=== PATIENT | female | born 1955 | race Caucasian/White ===

== ENCOUNTER 2019-03-12 10:06 | Inpatient (IN) | payer OTHER ==
[~2019-03-12] VITALS: Ht 152.4 cm; Wt 54.0 kg
--- OUTSIDE RECORDS SUMMARY | 2019-03-12 10:09 | XMS REPORT ---
Author Author [facility] Address Unknown Phone Unavailable Care Team Providers Care Inseam Trimmer Name Role Phone Unavailable Unavailable Problems This patient has no known problems. Allergies, Adverse Reactions, Alerts This patient has no known allergies or adverse reactions. Medications This patient has no known medications. Encounters Start Date/Time End Date/Time Encounter Type Admission Type Attending [facility] Care Department Encounter ID 2018-08-25 00:00:00 2018-08-25 00:00:00 Outpatient [facility] [id number] 2018-05-21 00:00:00 2018-05-21 00:00:00 Outpatient [facility] [id number] 2018-05-06 00:00:00 2018-05-06 00:00:00 Outpatient [facility] [id number] 2018-04-10 00:00:00 2018-04-10 00:00:00 Outpatient [facility] [id number] 2018-04-09 11:42:58 2018-04-09 11:42:58 Outpatient [facility] [id number] 2018-04-09 08:43:53 2018-04-09 08:43:53 Outpatient [facility] [id number] 2018-04-02 13:07:10 2018-04-02 13:07:10 Outpatient [facility] [id number] 2018-04-02 11:20:40 2018-04-02 11:20:40 Outpatient [facility] [id number] 2018-04-02 10:33:22 2018-04-02 10:33:22 Outpatient [facility] [id number] 2018-03-26 00:00:00 2018-03-26 00:00:00 Outpatient [facility] [id number] 2017-11-27 14:06:54 2017-11-27 14:06:54 Outpatient [facility] [id number] 2017-10-31 15:53:54 2017-10-31 15:53:54 Outpatient [facility] [id number] 2017-10-31 15:01:14 2017-10-31 15:01:14 Outpatient [facility] [id number] 2017-10-29 00:00:00 2017-10-29 00:00:00 Outpatient [facility] [id number] 2017-10-28 15:02:55 2017-10-28 15:02:55 Outpatient [facility] [id number] 2017-10-21 00:00:00 2017-10-21 00:00:00 Outpatient [facility] [id number] 2017-10-09 00:00:00 2017-10-09 00:00:00 Outpatient [facility] [id number] 2017-09-29 00:00:00 2017-09-29 00:00:00 Outpatient [facility] [id number] 2017-09-25 00:00:00 2017-09-25 00:00:00 Outpatient [facility] [id number] 2017-09-03 07:44:04 2017-09-03 07:44:04 Outpatient [facility] [id number] 2017-08-19 07:59:54 2017-08-19 07:59:54 Outpatient [facility] [id number] 2017-08-19 00:00:00 2017-08-19 00:00:00 Outpatient [facility] [id number] 2017-08-15 09:39:23 2017-08-15 09:39:23 Outpatient [facility] [id number] 2017-08-15 08:52:19 2017-08-15 08:52:19 Outpatient [facility] [id number] 2017-07-22 00:00:00 2017-07-22 00:00:00 Outpatient [facility] [id number] 2017-07-17 16:41:42 2017-07-17 16:41:42 Outpatient [facility] [id number] 2017-07-17 16:05:15 2017-07-17 16:05:15 Outpatient [facility] [id number] 2017-07-17 14:57:48 2017-07-17 14:57:48 Outpatient [facility] [id number] 2017-06-27 08:33:47 2017-06-27 08:33:47 Outpatient [facility] [id number]
--- OUTSIDE RECORDS SUMMARY | 2019-03-12 10:09 | XMS REPORT ---
Author Author Admin, Hayden Organization [facility] Address [address] [address] Phone Allergies, Adverse Reactions, Alerts Allergy Name Reaction Description Start Date Severity Status Provider No Known Allergies Halley Desai HNP Conditions or Problems Problem Name Problem Code Onset Date Status Entry Date Provider Comment Standard Description Annotate Tremor, essential 333.1 Active Halley Desai PMHNP Essential and other specified forms of tremor DEPRESSIVE DISORDER, MAJOR, RECURRENT EPISODE, MODERATE Active Halley Desai PMHNP Major depressive disorder, recurrent episode, moderate degree GENERALIZED ANXIETY DISORDER Active Halley Desai PMHNP Generalized anxiety disorder Medication List Medication Instructions Start Date Stop Date Generic Name NDC Status Provider Patient Instruction ZOLOFT 25 MG ORAL TABLET Take 1 tablet By Mouth QAM SERTRALINE HCL 26815707968 Active Halley Desai PMHNP Active ALBUTEROL SULFATE NEBULIZATION SOLUTION ALBUTEROL SULFATE NEBU 36478419617 Active Halley Desai PMHNP Active CYCLOBENZAPRINE HCL 10 MG ORAL TABLET CYCLOBENZAPRINE HCL 23772582415 Active Halley Desai PMHNP Active FROVATRIPTAN SUCCINATE 2.5 MG ORAL TABLET FROVATRIPTAN SUCCINATE 65151247230 Active Halley Desai PMHNP Active HYDROCODONE-ACETAMINOPHEN 10-325 MG/15ML ORAL SOLUTION HYDROCODONE-ACETAMINOPHEN 72364744940 Active Halley Desai PMHNP Active LEVALBUTEROL TARTRATE AEROSOL LEVALBUTEROL TARTRATE AERO 89146906220 Active Halley Desai PMHNP Active METOPROLOL TARTRATE 25 MG ORAL TABLET BID METOPROLOL TARTRATE 13298198697 Active Halley Desai PMHNP Active MIRTAZAPINE 45 MG ORAL TABLET Take 1 tablet By Mouth QHS MIRTAZAPINE 69260045240 Active Halley Desai PMHNP Active OMEPRAZOLE 40 MG ORAL CAPSULE DELAYED RELEASE OMEPRAZOLE 85396174859 Active Halley Desai PMHNP Active SYMBICORT AEROSOL BUDESONIDE-FORMOTEROL FUMARATE AERO 85330364779 Active Halley Desai PMHNP Active VALIUM 10 MG ORAL TABLET Take 1/2 tablet By Mouth BID As Needed for anxiety DIAZEPAM 53517922156 Active Halley Desai PMHNP Active CYMBALTA 30 MG ORAL CAPSULE DELAYED RELEASE PARTICLES Take 1 capsule By Mouth QA CYMBALTA 30 MG ORAL CAPSULE DELAYED RELEASE PARTICLES 720453 DULOXETINE HCL Inactive TRAZODONE HCL 150 MG ORAL TABLET Take 1 tablet By Mouth QHS TRAZODONE HCL 150 MG ORAL TABLET 592191 TRAZODONE HCL Inactive WELLBUTRIN XL 150 MG ORAL TABLET EXTENDED RELEASE 24 HOUR Take 1 tablet By Mouth QA WELLBUTRIN XL 150 MG ORAL TABLET EXTENDED RELEASE 24 HOUR BUPROPION HCL Inactive CYMBALTA 30 MG ORAL CAPSULE DELAYED RELEASE PARTICLES Take 1 capsule By Mouth QA DULOXETINE HCL 53135264282 No Longer Active Halley Desai PMHNP Active TRAZODONE HCL 150 MG ORAL TABLET Take 1 tablet By Mouth Q TRAZODONE HCL 94323878287 No Longer Active Halley Desai PMHNP Active WELLBUTRIN XL 150 MG ORAL TABLET EXTENDED RELEASE 24 HOUR Take 1 tablet By Mouth QA BUPROPION HCL 60643103156 No Longer Active Halley Desai PMHNP Active Vital Signs Date Name Value Unit Range Description blood pressure, diastolic 76 mm[Hg] BP jc blood pressure, systolic 131 mm[Hg] BP sys height E&M 60 [in_us] Bdy height pulse rate E&M 114 /min Heart rate weight E&M 107.20 [lb_av] Weight Measured blood pressure, diastolic 61 mm[Hg] BP jc blood pressure, systolic 117 mm[Hg] BP sys height E&M 60 [in_us] Bdy height pulse rate E&M 89 /min Heart rate weight E&M 106 [lb_av] Weight Measured blood pressure, diastolic 74 mm[Hg] BP jc blood pressure, systolic 115 mm[Hg] BP sys height E&M 60 [in_us] Bdy height pulse rate E&M 89 /min Heart rate weight E&M 99.50 [lb_av] Weight Measured blood pressure, diastolic 79 mm[Hg] BP jc blood pressure, systolic 118 mm[Hg] BP sys height E&M 60 [in_us] Bdy height pulse rate E&M 108 /min Heart rate weight E&M 101.25 [lb_av] Weight Measured Encounters Date Encounter Provider Code Facility 11:27:13 CDT Est Patient Exp Problem - 17874 Halley Gonzalezley PMHNP CPT-67174 [facility] 13:12:57 CDT Est Patient Exp Problem - 77193 Halley Desai HNP CPT-08933 [facility] 15:59:06 [employer] Est Patient Exp Problem - 10001 Halley Desai PMHNP CPT-44922 [facility] Procedures Code Procedure Name Date Entry Date Standard Description CPT-04583 Diagnostic evaluation with medical - 72701 15:57:29 [employer]
[2019-03-12] MEDS ORDERED: SODIUM CHLORIDE 0.9% 1000ML 1,000 ML IV STA (10:18)
[2019-03-12] MEDS ORDERED: MORPHINE SULFATE 2 MG/ML SYR 1ML IV ONE (10:45)
[2019-03-12] MEDS ORDERED: ONDANSETRON HCL INJ 2MG/ML 2ML 2 MG/ML VIAL IV ONE (10:45)
[2019-03-12 11:08] LABS: BASOPHILS # (AUTO) 0.1 (0.0-0.1); BASOPHILS % 0.6 % (0.0-1.0); EOSINOPHILS % 0.3 % (0.0-6.0); HEMATOCRIT 49.4 % (34.2-44.1); HEMOGLOBIN 17.3 g/dL (12.0-16.0); LYMPHOCYTES # (AUTO) 3.8 (1.0-3.2); LYMPHOCYTES % 38.6 % (18.0-39.1); MEAN CORPUSCULAR HEMOGLOBIN 30.8 pg (28-32); MEAN CORPUSCULAR VOLUME 87.9 fL (81-99); MONOCYTES # (AUTO) 1.3 (0.2-0.8); MONOCYTES % 12.8 % (4.4-11.3); NEUTROPHILS # (AUTO) 4.6 (2.1-6.9); NEUTROPHILS % 47.2 % (38.7-80.0); PLATELET COUNT 265 x10e3/uL (140-360); RED BLOOD COUNT 5.62 x10e6/uL (3.6-5.1); RED CELL DISTRIBUTION WIDTH 15.3 % (11.7-14.4)
[2019-03-12 11:23] LABS: PREGNANCY TEST, URINE NEGATIVE (NEGATIVE)
[2019-03-12 11:27] LABS: ALANINE AMINOTRANSFERASE 24 IU/L (0-55); ALBUMIN 4.8 g/dL (3.5-5.0); ALBUMIN/GLOBULIN RATIO 1.5 (0.8-2.0); ALKALINE PHOSPHATASE 100 IU/L (40-150); ANION GAP 19.1 mmol/L (8-16); BLOOD UREA NITROGEN 10 mg/dL (7-26); BUN/CREATININE RATIO 15 (6-25); CALCIUM 10.3 mg/dL (8.4-10.2); CARBON DIOXIDE 26 mmol/L (22-29); CHLORIDE 93 mmol/L (98-107); CREATINE KINASE 93 IU/L (29-168); CREATININE, SERUM 0.67 mg/dL (0.57-1.11); EST GLOMERULAR FILTRATION RATE > 60 ML/MIN (60-); GLUCOSE 114 mg/dL (74-118); LIPASE 35 U/L (8-78); POTASSIUM 3.1 mmol/L (3.5-5.1); SODIUM 135 mmol/L (136-145)
[2019-03-12 11:38] LABS: CLARITY,URINE HAZY (CLEAR); COLOR,URINE YELLOW (YELLOW); LEUKOCYTE ESTERASE ,URINE NEGATIVE (NEGATIVE); NITRITE,URINE NEGATIVE (NEGATIVE); PROTEIN,URINE DIPSTICK TRACE (NEGATIVE)
[2019-03-12 11:39] LABS: BILIRUBIN,URINE NEGATIVE (NEGATIVE); KETONES,URINE TRACE (NEGATIVE)
[2019-03-12 11:40] LABS: BACTERIA,URINE MODERATE /HPF; EPITHELIAL CELLS,URINE FEW /LPF
--- NOTE | 2019-03-12 11:42 | Diagnostic Imaging Report ---
EXAMINATION: CHEST SINGLE (PORTABLE) INDICATION: Tachycardia COMPARISON: None FINDINGS: LINES/TUBES:EKG leads overlie the chest. LUNGS:The lungs are well inflated. No focal consolidation or pulmonary edema. Scattered calcified granulomas. PLEURA:No pleural effusion or pneumothorax. MEDIASTINUM:The cardiomediastinal silhouette appears normal in size and shape. BONES/SOFT TISSUES:No acute osseous injury. ABDOMEN:No free air under the diaphragm. IMPRESSION: No focal pneumonia or pulmonary edema. Signed by: Jessee Dela Cruz MD on 03/12/2019 11:39 AM
[2019-03-12] MEDS ORDERED: FAMOTIDINE 20 MG/2 ML VIAL IV ONE (12:01)
[2019-03-12 12:04] LABS: B-TYPE NATRIURETIC PEPTIDE2 78.7 pg/mL (0-100)
[2019-03-12] MEDS ORDERED: MORPHINE SULFATE 2 MG/ML SYR 1ML IV PRN (13:30)
[2019-03-12] MEDS ORDERED: ASPIRIN 81 MG CHEW TAB PO ONE (13:30)
[2019-03-12] MEDS: SODIUM CHLORIDE 0.9% 1000ML 1,000 ML IV SCH ×2 (14:09→20:15)
[2019-03-12] MEDS: ONDANSETRON HCL INJ 2MG/ML 2ML 2 MG/ML VIAL IV PRN ×2 (14:10→20:10)
[2019-03-12] MEDS: MORPHINE SULFATE INJ 4 MG/ML INJ 1ML IV PRN ×2 (14:10→20:10)
--- NOTE | 2019-03-12 14:33 | Diagnostic Imaging Report ---
EXAM: CT Abdomen and Pelvis WITH intravenous contrast INDICATION: Abdominal pain COMPARISON: None. TECHNIQUE: Abdomen and pelvis were scanned utilizing a multidetector helical scanner from the lung base to the pubic symphysis after administration of IV contrast. Coronal and sagittal reformations were obtained. Routine protocol was performed. Scan was performed during portal venous phase. IV CONTRAST: 100mL of Isovue 370 ORAL CONTRAST: Water RADIATION DOSE: Total DLP: 174.7 mGy*cm Dose modulation, iterative reconstruction, and/or weight based adjustment of the mA/kV was utilized to reduce the radiation dose to as low as reasonably achievable. FINDINGS: LOWER THORAX: Mild bibasilar dependent subsegmental atelectasis. No focal consolidation. HEPATOBILIARY: Diffuse hepatic steatosis. No focal liver lesions. The common bile duct is dilated to 11 mm which can be seen status post cholecystectomy. SPLEEN: The spleen is absent. PANCREAS: No focal masses or ductal dilatation. ADRENALS: No adrenal nodules. KIDNEYS/URETERS: No hydronephrosis, stones, or solid mass lesions. Bilateral renal cysts measure up to 2.7 cm on the left and 1.5 cm on the right. PELVIC ORGANS/BLADDER: Unremarkable. PERITONEUM / RETROPERITONEUM: No free air or fluid. LYMPH NODES: No lymphadenopathy. VESSELS: Atherosclerotic calcifications of the nonaneurysmal abdominal aorta and major branches. GI TRACT: No abnormal bowel wall thickening. Loop of dilated small bowel in the left mid abdomen measures up to 3.4 cm with air-fluid level (series 2 image 25). BONES AND SOFT TISSUES: No acute osseous injury. No suspicious lytic or blastic lesions. IMPRESSION: Nonspecific loop of dilated small bowel in the left mid abdomen measures up to 3.4 cm with air-fluid level. No other evidence of bowel obstruction. Hepatic steatosis. Signed by: Jessee Dela Cruz MD on 03/12/2019 2:30 PM
[2019-03-12] MEDS ORDERED: MYSOLINE50 MG (15:08)
[2019-03-12] MEDS ORDERED: CYCLOBENZAPRINE10 MG (15:08)
[2019-03-12] MEDS ORDERED: HYDROCODON-ACE1 EAC9 (15:08)
[2019-03-12] MEDS ORDERED: LOPRESSOR25 MG (15:08)
[2019-03-12] MEDS ORDERED: OMEPRAZOLE40 MG (15:08)
[2019-03-12] MEDS ORDERED: SERTRALINE HCL25 MG (15:08)
[2019-03-12] MEDS ORDERED: AMLODIPINE BESYL5 MG (15:08)
[2019-03-12] MEDS ORDERED: IOPAMIDOL 370 MG/ML 200 ML INFUS..BTL INJ ONE (15:09)
[2019-03-12] MEDS ORDERED: SODIUM CHLORIDE 0.9% 50ML 50 ML ONE (15:09)
--- NOTE | 2019-03-12 15:12 | NUR ---
home meds obtained from patient and entered into the computer
[2019-03-12 15:48] VITALS: BP 157/87
[2019-03-12 16:00] VITALS: BP 157/87
[2019-03-12] MEDS: METHYLPREDNISOLONE SOD SUCC 40 MG/ML VIAL 1ML IV SCH (18:02)
[2019-03-12] MEDS ORDERED: LEVOFLOXACIN 500MG/D5W 100ML 100 ML IV SCH (18:45)
[2019-03-12] MEDS ORDERED: METOPROLOL TARTRATE 25 MG TAB PO SCH (18:45)
[2019-03-12] MEDS ORDERED: HYDROCODONE/APAP 10MG-325MG TAB PO PRN (18:59)
--- NOTE | 2019-03-12 19:00 | NUR ---
Patient visited in room during nursing rounds. Patient alert and oriented x3. No distress noted. Pt with intermittent abdominal pain and will be medicated accordingly. On IVF (NS at 125ml/hr). On 2L NC. Up with assist prn. Call hart within. Will monitor closely.
[2019-03-12 19:48] VITALS: BP 120/75
[2019-03-12] MEDS: METOPROLOL TARTRATE 25 MG TAB PO SCH (20:10)
[2019-03-12] MEDS: LEVOFLOXACIN 500MG/D5W 100ML 100 ML IV SCH (20:15)
[2019-03-12 21:09] LABS: CREATINE KINASE 132 IU/L (29-168)
--- NOTE | 2019-03-12 22:32 | NUR ---
Called and spoke with answering service for Dr. Antonia Downing. Reason for call was patient asking for sleeping medication. Awaiting on MD call back. MD on-call was Dr. Castillo.
[2019-03-13] VITALS (8 sets, daily range): BP systolic 107–120; BP diastolic 70–83
[2019-03-13] MEDS: METHYLPREDNISOLONE SOD SUCC 40 MG/ML VIAL 1ML IV SCH ×4 (00:20→22:20)
--- NOTE | 2019-03-13 01:10 | NUR ---
Dr. Payton Calvillo at bedside talking to patient. MD aware of patient condition and ordered STAT KUB due to patient's frequent abd pain.
--- NOTE | 2019-03-13 01:15 | NUR ---
Pt had a bowel movement. Stool was dark and small in amount. Pt stated he's passing small amount of gas.
--- NOTE | 2019-03-13 01:20 | NUR ---
STAT KUB in progress at bedside.
[2019-03-13] MEDS: MORPHINE SULFATE INJ 4 MG/ML INJ 1ML IV PRN ×5 (01:32→23:43)
[2019-03-13] MEDS: ONDANSETRON HCL INJ 2MG/ML 2ML 2 MG/ML VIAL IV PRN ×5 (01:32→23:43)
--- NOTE | 2019-03-13 01:45 | Diagnostic Imaging Report ---
Abdomen/KUB INDICATION: ^abdominal pain ^[id number] ^0120 COMPARISON: CT abdomen/pelvis 03/12/2019. FINDINGS: Portable, supine image obtained at 0127 hours. Medical Devices: Cholecystectomy clips are stable Bowel: Bowel gas pattern is unremarkable. Gaseous distention of small bowel loops are redemonstrated measuring up to 4.0 cm. No pneumatosis. Free air: None Abdominal calcifications: None Organomegaly: None There is excreted contrast in the bladder from CT. Lung bases: Clear Bones: Stable dextroscoliosis of the lumbar spine IMPRESSION: Persistent small bowel distention suggestive of severe ileus or low-grade partial small bowel obstruction. Signed by: Dr. Sheila Roa MD on 03/13/2019 1:42 AM
--- NOTE | 2019-03-13 02:13 | NUR ---
Dr. Pancho Calvillo ordered to insert NG tube on patient based on results from latest KUB result to help decompress patient's stomach.
--- NOTE | 2019-03-13 02:19 | History and Physical ---
CHIEF COMPLAINT: Emmie Rhoades is a 63-year-old female patient of [facility], presented to the emergency room with a complaint of abdominal pain. HISTORY OF PRESENT ILLNESS: Emmie Rhoades is a 63-year-old female patient of mine, presented to the emergency room with a complaint of severe abdominal pain. The patient was evaluated in the emergency room. The patient was severely tachycardic with a heart rate of 150. The patient was also having shortness of breath, so, the patient was subsequently admitted FOR severe COPD, anxiety, bipolar, hypertension, hyperlipidemia, anxiety, chronic back pain, and depression. ALLERGIES: THE PATIENT IS ALLERGIC TO PENICILLIN AND TRAMADOL. SOCIAL HISTORY: The patient is a smoker. Denies using alcohol. Denies using any drugs. FAMILY HISTORY: Hypertension. PAST MEDICAL HISTORY: COPD, hypertension, bipolar, depression, anxiety, and chronic back pain. REVIEW OF SYSTEMS: abdominal pain, cough, shortness of breath, wheezing and palpitation. Other systems are negative. PHYSICAL EXAMINATION: GENERAL: She is a middle-aged female patient lying in the bed. The patient is anxious and apprehensive. VITAL SIGNS: Temperature 99.6, pulse rate 114, respiratory rate 22, blood pressure 160/90. HEENT: Normocephalic, atraumatic. LUNGS: Bilateral equal air entry. There is rhonchi present. HEART: S1, S2. Regular. Tachycardia. ABDOMEN: The patient has diffuse mild tenderness. There is no guarding or rigidity. EXTREMITIES: No edema. LABORATORY EXAMINATION: The patient has hypokalemia, potassium of 3.1, bilirubin is 2.5 and LFTs mildly elevated. WBC count is 9.75. Her hemoglobin 17.3. Urine is showing low wbc's and moderate bacteria. The patient had a CT scan of the abdomen that was done, which showed dilated SMALL BOWELS . ADMITTING IMPRESSION/DIAGNOSES: Abdominal pain and urinary tract infection , tachycardia, hypertension and chronic obstructive pulmonary disease. PLAN: The patient will be admitted with above diagnoses , WILL RX WITH IV ABX patient will have a GI and pulmonary consultation done. MD SHEA Garland/MODESTO /[id number] LADARIUS
--- NOTE | 2019-03-13 02:30 | NUR ---
1st attempt to insert NG on right nare unsuccessful. 2nd attempt to insert on left nare unsuccessful. Patient shared she had history of surgery on her nose due to deviated septum on right side of nose.
--- NOTE | 2019-03-13 02:35 | NUR ---
Mary Lou Simons (ABISAI) attempted to insert NG tube on left nare but unsuccessful. Will report to Dr. Payton Calvillo unsuccessful attempts.
--- NOTE | 2019-03-13 02:40 | NUR ---
Informed Dr. Payton Calvillo of unsuccessful NG tube insertions and MD aware. MD ordered to instead give pt dulcolax suppository and do another KUB this morning at 0700. Pt aware informed and agreed to plan.
[2019-03-13] MEDS ORDERED: BISACODYL 10 MG SUPP PR ONE (02:45)
--- NOTE | 2019-03-13 03:11 | NUR ---
Dr. Payton Calvillo explained to patient her condition. MD aware Dulcolax supp has been given. MD informed patient that if 2nd KUB this morning (at 0700) does not show improvement, he might opt for IR to insert NG tube to decompress stomach.
--- NOTE | 2019-03-13 03:47 | NUR ---
Pt used bedside commode. Nurse heard and pt admitted she has passed a lot of gas but no stool collected on bedside commode. Pt urinated well.
[2019-03-13] MEDS: PANTOPRAZOLE SOD 40 MG TABEC PO SCH (06:13)
[2019-03-13] MEDS: SODIUM CHLORIDE 0.9% 1000ML 1,000 ML IV SCH ×2 (06:14→14:21)
[2019-03-13 06:52] LABS: BASOPHILS % 0.2 % (0.0-1.0); HEMATOCRIT 43.3 % (34.2-44.1); HEMOGLOBIN 14.7 g/dL (12.0-16.0); LYMPHOCYTES # (AUTO) 1.3 (1.0-3.2); LYMPHOCYTES % 25.8 % (18.0-39.1); MEAN CORPUSCULAR HGB CONC 33.9 g/dL (31-35); MEAN CORPUSCULAR VOLUME 91.4 fL (81-99); MONOCYTES # (AUTO) 0.2 (0.2-0.8); MONOCYTES % 4.8 % (4.4-11.3); NEUTROPHILS # (AUTO) 3.5 (2.1-6.9); NEUTROPHILS % 68.6 % (38.7-80.0); PLATELET COUNT 221 x10e3/uL (140-360); RED BLOOD COUNT 4.74 x10e6/uL (3.6-5.1); RED CELL DISTRIBUTION WIDTH 15.3 % (11.7-14.4)
--- NOTE | 2019-03-13 07:07 | NUR ---
Received bedside report from night nurse. Patient resting in bed, no c/o of pain or signs of distress at this time. All safety measures in place. Will continue to monitor.
[2019-03-13 07:12] LABS: ALANINE AMINOTRANSFERASE 18 IU/L (0-55); ALBUMIN 3.9 g/dL (3.5-5.0); ALBUMIN/GLOBULIN RATIO 1.7 (0.8-2.0); ALKALINE PHOSPHATASE 66 IU/L (40-150); ANION GAP 14.5 mmol/L (8-16); BLOOD UREA NITROGEN 14 mg/dL (7-26); BUN/CREATININE RATIO 20 (6-25); CARBON DIOXIDE 28 mmol/L (22-29); CHLORIDE 99 mmol/L (98-107); EST GLOMERULAR FILTRATION RATE > 60 ML/MIN (60-); GLUCOSE 152 mg/dL (74-118); POTASSIUM 3.5 mmol/L (3.5-5.1); SODIUM 138 mmol/L (136-145)
[2019-03-13 07:22] LABS: CREATINE KINASE 146 IU/L (29-168)
[2019-03-13] MEDS ORDERED: NON-FORMULARY MEDICATION (Sertraline Hcl 25 MG) SCH (09:00)
[2019-03-13] MEDS: AMLODIPINE BESYLATE 5 MG TAB PO SCH (09:03)
[2019-03-13] MEDS: METOPROLOL TARTRATE 25 MG TAB PO SCH ×2 (09:03→17:20)
[2019-03-13] MEDS: PRIMIDONE 50 MG TAB PO SCH (09:03)
[2019-03-13] MEDS: CYCLOBENZAPRINE HCL 10 MG TAB PO SCH ×2 (09:03→17:20)
[2019-03-13] MEDS: SERTRALINE HCL 50 MG TAB PO SCH (09:03)
--- NOTE | 2019-03-13 09:05 | Diagnostic Imaging Report ---
Abdomen/KUB INDICATION: ^abdominal pain COMPARISON: Abdomen x-ray 0127 hours FINDINGS: Portable, supine image obtained at 0647 hours. Images are motion degraded. Medical Devices: Cholecystectomy clips. Bowel: Visualized bowel gas pattern is unremarkable. Dilated small bowel loops in the left hemiabdomen measure approximately 3 cm (previously, 4 cm). No pneumatosis. Free air: None Abdominal calcifications: None Organomegaly: None There is excreted contrast within the bladder. Bones: Stable IMPRESSION: Motion degraded exam. Some improvement in small bowel dilatation. Signed by: Dr. Sheila Roa MD on 03/13/2019 7:01 AM
--- NOTE | 2019-03-13 11:33 | NUR ---
Tech reported that patient O2 stats on room air was 86%. With 2 L O2 NC, it was 92% at rest. Patient reports not going outside very often at home due to feeling tired. Paged Dr. Villareal to ask about possible home O2 eval.
--- NOTE | 2019-03-13 11:36 | NUR ---
Awaiting return call from Dr. Villareal regarding possible home O2 eval.
--- NOTE | 2019-03-13 11:48 | NUR ---
Per Dr. Villareal, will keep patient on 2L O2 NC, continue to monitor, and plan to do home O2 eval.
[2019-03-13] MEDS: ALBUTEROL/IPRATROPIUM 3 ML NEB NEB SCH ×3 (13:52→23:15)
[2019-03-13 15:41] LABS: CREATINE KINASE MB 5.3 ng/mL (0-5.0)
--- NOTE | 2019-03-13 15:58 | Consultation ---
DATE OF CONSULTATION: Pulmonary Consultation REASON FOR THE CONSULT: COPD. HISTORY OF PRESENT ILLNESS: Ms. Rhoades is a 63-year-old female admitted under Dr. Nelson Downing's service with complaints of abdominal pain. The patient has history of COPD. She is a heavy smoker. She started smoking when she was 9 years old. She has been a smoker for almost 55 years. She has been diagnosed with severe COPD. She has a history of hypertension. She denies any complaints of chest pain. She reports shortness of breath and wheezing and cough. REVIEW OF SYSTEMS: GENERAL: Denies any fever or chills. HEAD: Denies any head trauma. ENT: Denies any earaches. CVS: Denies any chest pain. RESPIRATORY: Shortness of breath. GI: Denies any nausea or vomiting. The rest of the review of systems are negative except as in HPI. PAST MEDICAL HISTORY: COPD, hypertension, depression, anxiety, and chronic back pain. FAMILY AND SOCIAL HISTORY: She still smokes, has been a smoker for 55 years, half to one-pack per day. Lives with her daughter. PHYSICAL EXAMINATION: VITAL SIGNS: Temperature 98.6, pulse of 88, blood pressure 120/83, respiratory rate of 18, and O2 saturation 95%. HEENT: Head is atraumatic and normocephalic. NECK: Supple. CHEST: Wheezing bilaterally. HEART: S1 and S2 audible. ABDOMEN: Soft. EXTREMITIES: No pedal edema. NEUROLOGIC: Awake and alert. LABORATORY DATA: White count of 5000, hemoglobin 14.7, when she came in was 17.3. Chemistries within normal limits, now she was in metabolic acidosis when she came in with anion gap of 19. CT of the abdomen and pelvis was done in the emergency room, which showed nonspecific loops of dilated bowel. A chest x-ray, I reviewed the images. It is not showing any focal infiltrate. ASSESSMENT/PLAN: Ms. Rhoades is a 63-year-old female. She presented to the emergency room with abdominal pain, found to be small bowel obstruction, also was wheezing and short of breath. Chest x-ray is not showing any evidence of pneumonia. Current problems: 1. Small bowel obstruction versus ileus. GI is following. 2. COPD exacerbation. Agree with IV Solu-Medrol, oxygen. We will start the patient on nebulizer treatment. Oxygen as needed to keep the O2 saturation more than or equal to 92%. She will need to follow up with me for management of her COPD. MD ASHLEY Patel/MODESTO /[id number]
--- NOTE | 2019-03-13 18:50 | NUR ---
Bedside report given to night nurse. Patient resting in bed, no signs of distress at this time. All safety measures in place.
[2019-03-13] MEDS: LEVOFLOXACIN 500MG/D5W 100ML 100 ML IV SCH (20:54)
[2019-03-14] VITALS (9 sets, daily range): BP systolic 102–127; BP diastolic 72–81
[2019-03-14] MEDS ORDERED: BISACODYL 10 MG SUPP PR ONE (01:00)
[2019-03-14] MEDS: SODIUM CHLORIDE 0.9% 1000ML 1,000 ML IV SCH ×2 (01:27→11:54)
[2019-03-14] MEDS: METHYLPREDNISOLONE SOD SUCC 40 MG/ML VIAL 1ML IV SCH ×3 (05:17→22:00)
[2019-03-14] MEDS: ALBUTEROL/IPRATROPIUM 3 ML NEB NEB SCH ×3 (07:35→19:15)
[2019-03-14] MEDS: METOPROLOL TARTRATE 25 MG TAB PO SCH ×2 (08:33→17:27)
[2019-03-14] MEDS: AMLODIPINE BESYLATE 5 MG TAB PO SCH (08:33)
[2019-03-14] MEDS: SERTRALINE HCL 50 MG TAB PO SCH (08:33)
[2019-03-14] MEDS: CYCLOBENZAPRINE HCL 10 MG TAB PO SCH ×2 (08:33→17:27)
[2019-03-14] MEDS: PANTOPRAZOLE SOD 40 MG TABEC PO SCH (08:33)
[2019-03-14] MEDS: PRIMIDONE 50 MG TAB PO SCH (08:33)
[2019-03-14] MEDS: NICOTINE 14 MG/EA PATCH TOP SCH (11:54)
[2019-03-14] MEDS: TOBRAMYCIN 0.3% (OPTH) 5 ML BTL OP SCH ×2 (11:54→17:28)
--- NOTE | 2019-03-14 12:37 | Diagnostic Imaging Report ---
EXAMINATION: ABDOMEN-1VIEW (KUB) INDICATION: Ileus, small bowel obstruction. COMPARISON: KUB 03/13/2019. FINDINGS: Motion degraded exam. Nonobstructive bowel gas pattern. There are air-filled small and large bowel loops, likely representing nonobstructive ileus. Status post cholecystectomy. Mild patchy right lower lobe opacity, likely atelectasis. IMPRESSION: No evidence of bowel obstruction. Air-filled small and large bowel loops, likely representing nonobstructive ileus. Signed by: Dr. Ellie Rojo MD on 03/14/2019 12:33 PM
[2019-03-14] MEDS: ONDANSETRON HCL INJ 2MG/ML 2ML 2 MG/ML VIAL IV PRN ×2 (14:21→20:00)
[2019-03-14] MEDS: MORPHINE SULFATE INJ 4 MG/ML INJ 1ML IV PRN ×2 (14:21→20:00)
--- NOTE | 2019-03-14 19:26 | NUR ---
Bedside report given to night nurse. Patient resting in bed, no c/o of pain or signs of distress at this time. All safety measures in place.
--- NOTE | 2019-03-14 20:16 | NUR ---
RECEIVED PT IN BED AOX3 .RESPIRATIONS ARE EVEN AND UNLABORED .DENIES PAIN CALL LIGHT WITH IN REACH CONTINUE TO MONITOR
[2019-03-14] MEDS: LEVOFLOXACIN 500MG/D5W 100ML 100 ML IV SCH (20:55)
[2019-03-15] VITALS (8 sets, daily range): BP systolic 109–135; BP diastolic 60–87
[2019-03-15] MEDS: MORPHINE SULFATE INJ 4 MG/ML INJ 1ML IV PRN ×5 (00:15→22:34)
[2019-03-15] MEDS: ALBUTEROL/IPRATROPIUM 3 ML NEB NEB SCH ×4 (00:35→19:56)
[2019-03-15] MEDS ORDERED: BISACODYL 5 MG TAB EC PO STA (02:41)
[2019-03-15] MEDS ORDERED: BISACODYL 5 MG TAB EC PO ONE (02:45)
[2019-03-15] MEDS: METHYLPREDNISOLONE SOD SUCC 40 MG/ML VIAL 1ML IV SCH ×3 (06:00→22:00)
[2019-03-15] MEDS: TOBRAMYCIN 0.3% (OPTH) 5 ML BTL OP SCH ×4 (06:00→18:19)
--- NOTE | 2019-03-15 06:11 | NUR ---
PT C/O PAIN AND GIVEN ORDERED PAIN MEDICATION .DR VERONICA SEEN THE PT .FAMILY AT THE BEDSIDE .CALL LIGHT WITH IN REACH .CONTINUE TO MONITOR
--- NOTE | 2019-03-15 06:14 | NUR ---
PT C/O PAIN AND GIVEN ORDERED PAIN MEDICATION .CALL LIGHT WITH IN REACH .CONTINUE TO MONITOR
[2019-03-15 06:32] LABS: BASOPHILS % 0.2 % (0.0-1.0); HEMATOCRIT 42.4 % (34.2-44.1); HEMOGLOBIN 14.1 g/dL (12.0-16.0); LYMPHOCYTES # (AUTO) 3.8 (1.0-3.2); LYMPHOCYTES % 28.9 % (18.0-39.1); MEAN CORPUSCULAR HEMOGLOBIN 30.8 pg (28-32); MEAN CORPUSCULAR HGB CONC 33.3 g/dL (31-35); MEAN CORPUSCULAR VOLUME 92.6 fL (81-99); MONOCYTES # (AUTO) 1.7 (0.2-0.8); MONOCYTES % 12.7 % (4.4-11.3); NEUTROPHILS # (AUTO) 7.5 (2.1-6.9); NEUTROPHILS % 57.5 % (38.7-80.0); PLATELET COUNT 209 x10e3/uL (140-360); RED BLOOD COUNT 4.58 x10e6/uL (3.6-5.1); RED CELL DISTRIBUTION WIDTH 15.2 % (11.7-14.4)
[2019-03-15 06:52] LABS: ALANINE AMINOTRANSFERASE 32 IU/L (0-55); ALBUMIN 3.7 g/dL (3.5-5.0); ALBUMIN/GLOBULIN RATIO 1.9 (0.8-2.0); ALKALINE PHOSPHATASE 47 IU/L (40-150); ANION GAP 11.6 mmol/L (8-16); BLOOD UREA NITROGEN 8 mg/dL (7-26); BUN/CREATININE RATIO 12 (6-25); CALCIUM 8.9 mg/dL (8.4-10.2); CARBON DIOXIDE 28 mmol/L (22-29); CHLORIDE 102 mmol/L (98-107); CREATININE, SERUM 0.65 mg/dL (0.57-1.11); EST GLOMERULAR FILTRATION RATE > 60 ML/MIN (60-); GLUCOSE 100 mg/dL (74-118); SODIUM 139 mmol/L (136-145)
--- NOTE | 2019-03-15 07:08 | NUR ---
BEDSIDE REPORT GIVEN TO THE ONCOMING NURSE NO ACUTE DISTRESS NOTED
[2019-03-15 07:15] LABS: POTASSIUM 2.6 mmol/L (3.5-5.1)
--- NOTE | 2019-03-15 07:30 | NUR ---
RECD PT UP IN BED ,NO S/S DISCOMFORT,O2 2L NC IN PLACE
[2019-03-15 08:00] LABS: LYMPHOCYTES % (MANUAL) 21 % (19-48); MONOCYTES % (MANUAL) 8 % (3.4-9.0); NEUTROPHILS % (MANUAL) 71 % (40-74); PLATELET ESTIMATE ADEQUATE; PLATELET MORPHOLOGY COMMENT NORMAL; RBC MORPHOLOGY COMMENT NORMAL
[2019-03-15] MEDS: PRIMIDONE 50 MG TAB PO SCH (09:26)
[2019-03-15] MEDS: ONDANSETRON HCL INJ 2MG/ML 2ML 2 MG/ML VIAL IV PRN ×2 (09:26→22:34)
[2019-03-15] MEDS: SERTRALINE HCL 50 MG TAB PO SCH (09:26)
[2019-03-15] MEDS: CYCLOBENZAPRINE HCL 10 MG TAB PO SCH ×2 (09:26→17:13)
[2019-03-15] MEDS: AMLODIPINE BESYLATE 5 MG TAB PO SCH (09:26)
[2019-03-15] MEDS: NICOTINE 14 MG/EA PATCH TOP SCH (09:26)
[2019-03-15] MEDS: METOPROLOL TARTRATE 25 MG TAB PO SCH ×2 (09:27→17:14)
[2019-03-15] MEDS: PANTOPRAZOLE SOD 40 MG TABEC PO SCH (09:27)
[2019-03-15] MEDS ORDERED: POTASSIUM CHLORIDE 10MEQ EA PO ONE (11:00)
[2019-03-15] MEDS: SODIUM CHLORIDE 0.9% 1000ML 1,000 ML IV SCH (11:00)
--- NOTE | 2019-03-15 18:36 | NUR ---
PT UP IN BED STILL C/O ABD PAIN LEVEL 4,NO DISTRESS NOTED.
--- NOTE | 2019-03-15 20:06 | NUR ---
RECEIVED PT STANDING IN THE ROOM DENIES PAIN .TELE [address] .RT FA NS AT 50CC/HR .DENIES PAIN CALL LIGHT WITH IN REACH .CONTINUE TO MONITOR
[2019-03-15] MEDS: LEVOFLOXACIN 500MG/D5W 100ML 100 ML IV SCH (21:01)
[2019-03-16] VITALS (7 sets, daily range): BP systolic 109–140; BP diastolic 71–87
[2019-03-16] MEDS ORDERED: PANTOPRAZOLE 40 MG 10ML VIAL IV STA (00:14)
[2019-03-16] MEDS ORDERED: DONNATAL/LIDOCAINE/MAALOX 30 ML SUSP PO ONE (00:30)
[2019-03-16] MEDS ORDERED: BISACODYL 5 MG TAB EC PO ONE ×2 (00:30→01:00)
[2019-03-16] MEDS: ALBUTEROL/IPRATROPIUM 3 ML NEB NEB SCH ×4 (00:40→19:30)
[2019-03-16] MEDS ORDERED: LIDOCAINE VISC 2% SOLN 100ML BLT PO ONE (02:15)
[2019-03-16] MEDS ORDERED: BELLADONNA ALK/PHENOBARBITAL 5 ML UDC PO ONE (02:15)
[2019-03-16] MEDS ORDERED: MAGNESIUM/ALUMINUM/SIMETHICONE 30 ML UDC PO ONE (02:15)
[2019-03-16] MEDS: SODIUM CHLORIDE 0.9% 1000ML 1,000 ML IV SCH (02:29)
[2019-03-16] MEDS: TOBRAMYCIN 0.3% (OPTH) 5 ML BTL OP SCH ×4 (05:38→18:16)
[2019-03-16] MEDS: METHYLPREDNISOLONE SOD SUCC 40 MG/ML VIAL 1ML IV SCH ×3 (05:38→22:48)
[2019-03-16 05:53] LABS: BASOPHILS % 0.1 % (0.0-1.0); EOSINOPHILS # (AUTO) 0.1 (0.0-0.4); EOSINOPHILS % 0.4 % (0.0-6.0); HEMATOCRIT 43.3 % (34.2-44.1); HEMOGLOBIN 14.2 g/dL (12.0-16.0); LYMPHOCYTES # (AUTO) 4.4 (1.0-3.2); LYMPHOCYTES % 32.5 % (18.0-39.1); MEAN CORPUSCULAR HEMOGLOBIN 30.8 pg (28-32); MEAN CORPUSCULAR HGB CONC 32.8 g/dL (31-35); MEAN CORPUSCULAR VOLUME 93.9 fL (81-99); MONOCYTES % 14.8 % (4.4-11.3); NEUTROPHILS # (AUTO) 7.1 (2.1-6.9); NEUTROPHILS % 51.6 % (38.7-80.0); PLATELET COUNT 206 x10e3/uL (140-360); RED BLOOD COUNT 4.61 x10e6/uL (3.6-5.1); RED CELL DISTRIBUTION WIDTH 15.3 % (11.7-14.4)
[2019-03-16 06:26] LABS: ALANINE AMINOTRANSFERASE 52 IU/L (0-55); ALBUMIN 3.6 g/dL (3.5-5.0); ALBUMIN/GLOBULIN RATIO 1.7 (0.8-2.0); ALKALINE PHOSPHATASE 43 IU/L (40-150); BLOOD UREA NITROGEN 8 mg/dL (7-26); BUN/CREATININE RATIO 12 (6-25); CALCIUM 8.7 mg/dL (8.4-10.2); CARBON DIOXIDE 30 mmol/L (22-29); CHLORIDE 100 mmol/L (98-107); CREATININE, SERUM 0.68 mg/dL (0.57-1.11); EST GLOMERULAR FILTRATION RATE > 60 ML/MIN (60-); GLUCOSE 80 mg/dL (74-118); SODIUM 140 mmol/L (136-145)
[2019-03-16 07:02] LABS: LYMPHOCYTES % (MANUAL) 31 % (19-48); MONOCYTES % (MANUAL) 13 % (3.4-9.0); NEUTROPHILS % (MANUAL) 56 % (40-74); PLATELET ESTIMATE ADEQUATE; RBC MORPHOLOGY COMMENT NORMAL
--- NOTE | 2019-03-16 07:12 | NUR ---
PT RESTED DURING THE NIGHT AND GIVEN ORDERED PAIN MEDICATION .CALL LIGHT .REPORT GIVEN TO THE ONCOMING NURSE
[2019-03-16] MEDS: METOPROLOL TARTRATE 25 MG TAB PO SCH ×2 (09:00→17:00)
[2019-03-16] MEDS: AMLODIPINE BESYLATE 5 MG TAB PO SCH (09:00)
[2019-03-16] MEDS: CYCLOBENZAPRINE HCL 10 MG TAB PO SCH ×2 (09:00→17:00)
[2019-03-16] MEDS: SERTRALINE HCL 50 MG TAB PO SCH (09:00)
[2019-03-16] MEDS: PANTOPRAZOLE 40 MG 10ML VIAL IV SCH ×2 (09:00→20:22)
[2019-03-16] MEDS: NICOTINE 14 MG/EA PATCH TOP SCH (09:00)
[2019-03-16] MEDS: PRIMIDONE 50 MG TAB PO SCH (10:00)
[2019-03-16] MEDS: ONDANSETRON HCL INJ 2MG/ML 2ML 2 MG/ML VIAL IV PRN ×3 (10:20→20:22)
[2019-03-16] MEDS: MORPHINE SULFATE INJ 4 MG/ML INJ 1ML IV PRN (10:20)
[2019-03-16] MEDS ORDERED: POTASSIUM CHLORIDE 20 MEQ TAB CR PO ONE (11:00)
[2019-03-16] MEDS: KCL 20MEQ/.9 SOD CHL 1,000 ML IV SCH (11:04)
[2019-03-16] MEDS ORDERED: CITRATE OF MAGNESIA 300ML BOTTLE PO NR (14:15)
[2019-03-16] MEDS: MORPHINE SULFATE 2 MG/ML SYR 1ML IV PRN ×2 (14:59→20:22)
--- NOTE | 2019-03-16 16:43 | NUR ---
ORDER RECEIVED FOR HOME O2. CM MET W THE PT AT THE BEDSIDE. DISCUSSED CHOICE. PT WOULD LIKE TO USE AN AGENCY THAT ACCEPTS HER INSURANCE. PT SIGNED CHOICE LETTER. COPY TO THE PT AND COPY TO THE CHART. REFERRAL WAS FAXED TO [facility] @ [phone]; C/O [facility] @ [phone].
--- NOTE | 2019-03-16 18:20 | NUR ---
PT UP IN BED NO DISTRESS NTOED,DENIES PAIN,,[address]
--- NOTE | 2019-03-16 19:00 | NUR ---
Pt visited in room during nursing rounds. Patient alert and oriented x3. No distress noted. Pt having intermittent abd pain and nausea and being medicated accordingly. Pt on IVF (NS with 20meqKCL at 125ml/hr). Pt gets up prn with standby assist. On 2L NC. Pt scheduled for EGD and Colonoscopy tomorrow (03/17/19) in the afternoon.
[2019-03-16] MEDS: LEVOFLOXACIN 500MG/D5W 100ML 100 ML IV SCH (20:22)
[2019-03-17] VITALS (8 sets, daily range): BP systolic 109–132; BP diastolic 65–83
[2019-03-17] MEDS ORDERED: BISACODYL 5 MG TAB EC PO STA (00:01)
[2019-03-17] MEDS: ONDANSETRON HCL INJ 2MG/ML 2ML 2 MG/ML VIAL IV PRN ×6 (00:33→21:45)
[2019-03-17] MEDS: MORPHINE SULFATE 2 MG/ML SYR 1ML IV PRN ×6 (00:33→21:45)
[2019-03-17] MEDS: ALBUTEROL/IPRATROPIUM 3 ML NEB NEB SCH ×4 (00:35→19:10)
[2019-03-17] MEDS: TOBRAMYCIN 0.3% (OPTH) 5 ML BTL OP SCH ×5 (00:35→23:08)
[2019-03-17] MEDS ORDERED: BISACODYL 5 MG TAB EC PO ONE (00:47)
--- NOTE | 2019-03-17 01:00 | NUR ---
Dr. Pancho Calvillo came and visited pt in room. MD informed pt about the procedure (EGD/Colonoscopy) scheduled in the afternoon. Pt aware.
[2019-03-17] MEDS: KCL 20MEQ/.9 SOD CHL 1,000 ML IV SCH ×3 (03:46→18:15)
[2019-03-17 05:41] LABS: BASOPHILS % 0.1 % (0.0-1.0); HEMATOCRIT 41.7 % (34.2-44.1); HEMOGLOBIN 13.9 g/dL (12.0-16.0); LYMPHOCYTES # (AUTO) 1.6 (1.0-3.2); LYMPHOCYTES % 15.2 % (18.0-39.1); MEAN CORPUSCULAR HEMOGLOBIN 30.9 pg (28-32); MEAN CORPUSCULAR HGB CONC 33.3 g/dL (31-35); MEAN CORPUSCULAR VOLUME 92.7 fL (81-99); MONOCYTES # (AUTO) 1.3 (0.2-0.8); NEUTROPHILS # (AUTO) 7.3 (2.1-6.9); NEUTROPHILS % 71.1 % (38.7-80.0); PLATELET COUNT 224 x10e3/uL (140-360); RED CELL DISTRIBUTION WIDTH 15.3 % (11.7-14.4)
[2019-03-17 06:09] LABS: ALANINE AMINOTRANSFERASE 98 IU/L (0-55); ALBUMIN 3.7 g/dL (3.5-5.0); ALBUMIN/GLOBULIN RATIO 1.8 (0.8-2.0); ALKALINE PHOSPHATASE 45 IU/L (40-150); ANION GAP 10.6 mmol/L (8-16); BLOOD UREA NITROGEN 8 mg/dL (7-26); BUN/CREATININE RATIO 12 (6-25); CALCIUM 8.7 mg/dL (8.4-10.2); CARBON DIOXIDE 31 mmol/L (22-29); CHLORIDE 99 mmol/L (98-107); CREATININE, SERUM 0.68 mg/dL (0.57-1.11); EST GLOMERULAR FILTRATION RATE > 60 ML/MIN (60-); GLUCOSE 129 mg/dL (74-118); POTASSIUM 3.6 mmol/L (3.5-5.1); SODIUM 137 mmol/L (136-145)
[2019-03-17] MEDS: METHYLPREDNISOLONE SOD SUCC 40 MG/ML VIAL 1ML IV SCH (06:15)
[2019-03-17 06:30] LABS: AMYLASE 18 U/L (25-125); LIPASE 8 U/L (8-78)
[2019-03-17] MEDS ORDERED: CITRATE OF MAGNESIA 300ML BOTTLE PO ONE (07:00)
[2019-03-17] MEDS: PANTOPRAZOLE 40 MG 10ML VIAL IV SCH ×2 (08:22→21:25)
[2019-03-17] MEDS: CYCLOBENZAPRINE HCL 10 MG TAB PO SCH ×2 (08:23→17:38)
[2019-03-17] MEDS: PRIMIDONE 50 MG TAB PO SCH (08:23)
[2019-03-17] MEDS: SERTRALINE HCL 50 MG TAB PO SCH (08:23)
[2019-03-17] MEDS: NICOTINE 14 MG/EA PATCH TOP SCH (08:23)
[2019-03-17] MEDS: AMLODIPINE BESYLATE 5 MG TAB PO SCH (08:23)
[2019-03-17] MEDS: METOPROLOL TARTRATE 25 MG TAB PO SCH ×2 (08:23→17:00)
[2019-03-17] MEDS: MAGNESIUM HYDROXIDE 30 ML UDC PO SCH (08:23)
--- NOTE | 2019-03-17 08:45 | Diagnostic Imaging Report ---
Exam: KUB - 2 views Indication: Abdominal distention Comparison: KUB of 03/14/2019 Findings: Compared to the prior study of 03/14/2019, there has been interval worsening of dilated loops of large bowel in the left abdomen measuring up to 11.8 cm maximum diameter. This is associated with multiple air-fluid levels. No intraperitoneal free air. No abnormal calcifications. Status post cholecystectomy. Mild degenerative changes of the visualized spine. The partially visualized lung bases appear clear. Impression: Interval worsening of dilated loops of large bowel in the left abdomen measuring up to 11.8 cm associated with multiple air-fluid levels, concerning for obstruction. No free air. Signed by: Jessee Dela Cruz MD on 03/17/2019 8:42 AM
--- NOTE | 2019-03-17 11:27 | NUR ---
Spoke with Dr. Payton Calvillo regarding patient's KUB results from this morning. Will page Dr. Downing about possible consultation with surgeon.
--- NOTE | 2019-03-17 11:49 | NUR ---
Paged Dr. Downing regarding Dr. Payton Calvillo's inquiry about a possible consultation with surgery. Awaiting return call.
--- NOTE | 2019-03-17 12:57 | NUR ---
PAGED DR. SHIRLEY A SECOND TIME IN REGARDS TO SURGEON CONSULT. WAITING ELECTRICAL LABORATORY TECHNICIAN BACK.
--- NOTE | 2019-03-17 13:48 | NUR ---
Spoke with Dr. Downing regarding Dr. Payton Calvillo's request for a consultation with a surgeon. Per Dr. Downing, entered in order for consultation with Dr. Ancelmo Mcgowan.
--- NOTE | 2019-03-17 13:59 | NUR ---
Spoke with Dr. Payton Calvillo regarding consult with Dr. Ancelmo Mcgowan. Dr. Calvillo said that he spoke with Dr. Downing and they decided to cancel the procedure. Per Dr. Calvillo will keep patient NPO until seen by Dr. Mcgowan, and will straight cath patient for urine culture.
[2019-03-17 14:50] LABS: BILIRUBIN,URINE NEGATIVE (NEGATIVE); CLARITY,URINE CLOUDY (CLEAR); COLOR,URINE YELLOW (YELLOW); KETONES,URINE NEGATIVE (NEGATIVE); LEUKOCYTE ESTERASE ,URINE NEGATIVE (NEGATIVE); NITRITE,URINE NEGATIVE (NEGATIVE); PROTEIN,URINE DIPSTICK NEGATIVE (NEGATIVE); URINE UROBILINOGEN 0.2 mg/dL (0.2 - 1)
[2019-03-17 14:59] LABS: AMORPHOUS SEDIMENT,URINE FEW (FEW); BACTERIA,URINE RARE /HPF; EPITHELIAL CELLS,URINE RARE /LPF
--- NOTE | 2019-03-17 16:44 | NUR ---
Gave report to new nurse. Patient in stable condition. All safety measures in place.
[2019-03-17] MEDS: LEVOFLOXACIN 500MG/D5W 100ML 100 ML IV SCH (21:25)
--- NOTE | 2019-03-17 21:25 | NUR ---
PATIENT IS AOX3 NO SIGNS OF DISTRESS NOTED. PATIENT IS RESTING IN BED AFTER TAKING A SHOWER, IV PUMP IS RUNNING AT ORDERED RATE. PATIENT IS AWARE OF NPO ORDER AND IS AWAITING EGD THE NEXT DAY. BOTH SIDE RAILS ARE UP, CALL LIGHT WITHIN REACH, WILL CONTINUE TO MONITOR.
[2019-03-18] VITALS (8 sets, daily range): BP systolic 99–127; BP diastolic 62–84
--- NOTE | 2019-03-18 00:15 | NUR ---
DR. VERONICA HAS SEEN PATIENT AND CHANGED PATIENT'S DIET FROM NPO TO CLEAR LIQUID DIET. KUB A WAS ORDERED WELL.
--- NOTE | 2019-03-18 00:25 | NUR ---
RADIOLOGY HAS COME TO PATIENT'S ROOM FOR X-RAY.
[2019-03-18] MEDS: ALBUTEROL/IPRATROPIUM 3 ML NEB NEB SCH ×4 (00:35→18:50)
[2019-03-18] MEDS: ONDANSETRON HCL INJ 2MG/ML 2ML 2 MG/ML VIAL IV PRN ×5 (01:46→20:20)
[2019-03-18] MEDS: MORPHINE SULFATE 2 MG/ML SYR 1ML IV PRN ×5 (01:46→20:20)
[2019-03-18] MEDS: KCL 20MEQ/.9 SOD CHL 1,000 ML IV SCH ×4 (02:17→20:05)
--- NOTE | 2019-03-18 03:06 | Diagnostic Imaging Report ---
EXAM: Abdomen Radiograph 1 View(s) INDICATION: Bowel obstruction COMPARISON: Abdominal radiograph 03/17/2019, abdominal CT 03/12/2019 FINDINGS: No abnormalities in the lower chest. No lines or tubes. Persistent gaseous colonic distention and pathologic colonic dilation. No abnormal abdominal calcifications.. No abnormal soft tissue masses. No pneumoperitoneum. No acute osseous abnormality. Mild degenerative changes in the lumbar spine and pelvis. Surgical clips in the right upper quadrant. IMPRESSION: Persistent gas-filled and dilated loop of colon concerning for obstruction. Signed by: Cj Pelletier DO on 03/18/2019 3:03 AM
[2019-03-18] MEDS: TOBRAMYCIN 0.3% (OPTH) 5 ML BTL OP SCH (05:38)
--- NOTE | 2019-03-18 07:15 | NUR ---
Walking rounds completed and patient is awake in bed with IV infusing via PIV that is intact. The patient complains of pain in her abdomen. Will review meds and medicate as needed.
--- NOTE | 2019-03-18 07:28 | Diagnostic Imaging Report ---
Exam: Abdominal film Clinical History: Abdominal distention Comparison: 03/18/2019 DISCUSSION: When accounting for differences in technique, no appreciable interval change in markedly distended colon predominantly within the left upper quadrant. No kev pneumoperitoneum on the upright radiograph. Right upper quadrant surgical clips compatible with cholecystectomy. Regional skeletal structures are intact with stable scoliotic curvature of the lumbar spine. IMPRESSION: Persistent colonic distention concerning for obstruction as previously discussed. No kev pneumoperitoneum. Signed by: Dr. Sin Weber M.D. on 03/18/2019 7:25 AM
[2019-03-18] MEDS: CYCLOBENZAPRINE HCL 10 MG TAB PO SCH ×2 (08:34→17:00)
[2019-03-18] MEDS: MAGNESIUM HYDROXIDE 30 ML UDC PO SCH (08:34)
[2019-03-18] MEDS: NICOTINE 14 MG/EA PATCH TOP SCH (08:34)
[2019-03-18] MEDS: AMLODIPINE BESYLATE 5 MG TAB PO SCH (08:34)
[2019-03-18] MEDS: PRIMIDONE 50 MG TAB PO SCH (08:34)
[2019-03-18] MEDS: PANTOPRAZOLE 40 MG 10ML VIAL IV SCH ×2 (08:34→20:20)
[2019-03-18] MEDS: METOPROLOL TARTRATE 25 MG TAB PO SCH ×2 (08:34→17:00)
[2019-03-18] MEDS: PREDNISONE 20 MG TAB PO SCH (08:34)
[2019-03-18] MEDS: SERTRALINE HCL 50 MG TAB PO SCH (08:34)
--- NOTE | 2019-03-18 09:15 | NUR ---
The patient has taken her meds and has been medicated with Datil 10/325. Her pain is at a 7/10 now. Will reevaluate in 30 min.
--- NOTE | 2019-03-18 09:47 | NUR ---
Patient is sleeping now and will reevaluate again in an hour.
--- NOTE | 2019-03-18 12:00 | NUR ---
Patient continues to complain of pain in the abdomen and has been medicated with Morphine. Will reevaluate in 30 min
[2019-03-18] MEDS: MOXIFLOXACIN HCL(OPTH) 3 ML BTL OP SCH ×3 (13:13→20:20)
--- NOTE | 2019-03-18 14:08 | NUR ---
Nutrition Intervention Note RD Recommendation(s) for Physician: -Rec advancing diet to GI soft as medically appropriate -Rec Ensure Clear while on clear liquid and Ensure Enlive while on full liquid/ reg diet -The patient meets criteria for MODERATE protein-calorie malnutrition. Plan of Care: RD following, monitoring for tolerance and adequacy, ONS rec Nutrition reason for involvement: LOS RD Assessment 03/18- 63yo F, who was admitted for abdominal pain. Abd XR showed persistent colonic distention concerning for obstruction. GI following. Surgery has been consulted. Visited pt in the room. Pt had clear liquid for lunch with observed 75% intake. Pt complained of some nausea but no vomiting episode. Pt passed gas this AM. Pt has no bottom teeth so she cant chew very well. Pt also reported trouble with swallowing and has to be careful with fluids at baseline. She reported UBW of 99lbs but has been eating less than usual since last week. Will continue to monitor and follow. Principal Problems/Diagnoses: SBO PMH: COPD, HTN GI: abdomen soft, non-tender, distended, flatus present Skin: intact Labs: (03/18) reviewed Meds: ( 03/18) KCl, zofran, prednisone, milk of magnesia, protonix, fexeril Ht: 60in Wt: 123lb BMI: 24.0kg/m2 IBW: 100lb Malnutrition Evaluation (03/18) The patient meets criteria for MODERATE protein-calorie malnutrition. Energy intake: <75% of estimated energy requirements for >7 days Weight loss: 1-2% in 1 week (Acute) Fat loss: None Muscle loss: Mild temporal depression Supporting Evidence: Fluid accumulation: none Functional Status: no changes Nutrition Prescription (Diet Order): clear liquid Estimated Nutritional Needs: Calories: 1350 1620kcal (25-30kcal/kg/d) Weight used: CBW Protein: 54-81g(1-1.5g/kg/d) Weight used: CBW Diet Adequacy: Not meeting calorie needs, Not meeting protein needs Diet Education Needs Assessment: Diet education not indicated, patient on temporary/transition diet. Nutrition Care Level: mod Nutrition Diagnosis: Moderate malnutrition related to inadequate oral intake as evidenced by pt reported poor appetite for ~2weeks and some weight loss. Goal: Patient will meet 75-100% of estimated needs by follow up Progress: Progressing Interventions: Modified diet, Commercial beverage Monitoring/Evaluation: Total energy intake, Total protein intake, Modified diet, Liquid supplement, Weight change Signed: Dawn Perera, MS, RD, LD
--- NOTE | 2019-03-18 14:51 | NUR ---
Patient is ambulating well with PT. PT is discharging her from their service.
--- NOTE | 2019-03-18 18:50 | NUR ---
walking rounds complete and patient is sitting up in bed watching tele
[2019-03-18] MEDS: LEVOFLOXACIN 500MG/D5W 100ML 100 ML IV SCH (20:20)
--- NOTE | 2019-03-18 20:20 | NUR ---
PATIENT IS AOX3, NO SIGNS OF DISTRESS NOTED. PATIENT COMPLAINED OF PAIN AT IN THE ABDOMEN AT A 9 AND WAS MEDICATED ORDERED. IV FLUIDS ARE RUNNING AT ORDERED RATE, BED IS IN LOWEST POSITION, BOTH SIDE RAILS ARE UP CALL LIGHT WITHIN REACH, WILL CONTINUE TO MONITOR.
[2019-03-19] VITALS (7 sets, daily range): BP systolic 100–127; BP diastolic 67–86
[2019-03-19] MEDS: MORPHINE SULFATE 2 MG/ML SYR 1ML IV PRN ×5 (00:26→21:39)
[2019-03-19] MEDS: ONDANSETRON HCL INJ 2MG/ML 2ML 2 MG/ML VIAL IV PRN ×4 (00:26→21:39)
[2019-03-19] MEDS: ALBUTEROL/IPRATROPIUM 3 ML NEB NEB SCH ×4 (00:40→20:26)
[2019-03-19] MEDS: KCL 20MEQ/.9 SOD CHL 1,000 ML IV SCH ×2 (06:03→18:08)
[2019-03-19 06:04] LABS: BASOPHILS % 0.2 % (0.0-1.0); EOSINOPHILS # (AUTO) 0.3 (0.0-0.4); EOSINOPHILS % 2.2 % (0.0-6.0); HEMATOCRIT 40.9 % (34.2-44.1); HEMOGLOBIN 13.6 g/dL (12.0-16.0); LYMPHOCYTES # (AUTO) 5.2 (1.0-3.2); LYMPHOCYTES % 45.1 % (18.0-39.1); MEAN CORPUSCULAR HEMOGLOBIN 30.8 pg (28-32); MEAN CORPUSCULAR HGB CONC 33.3 g/dL (31-35); MEAN CORPUSCULAR VOLUME 92.5 fL (81-99); MONOCYTES # (AUTO) 2.3 (0.2-0.8); MONOCYTES % 20.1 % (4.4-11.3); NEUTROPHILS # (AUTO) 3.7 (2.1-6.9); PLATELET COUNT 249 x10e3/uL (140-360); RED BLOOD COUNT 4.42 x10e6/uL (3.6-5.1); RED CELL DISTRIBUTION WIDTH 15.5 % (11.7-14.4)
--- NOTE | 2019-03-19 06:05 | NUR ---
PATIENT HAD SMALL WATERY BOWEL MOVEMENT AT BEDSIDE COMMODE.
[2019-03-19 06:36] LABS: ALANINE AMINOTRANSFERASE 167 IU/L (0-55); ALBUMIN 3.5 g/dL (3.5-5.0); ALBUMIN/GLOBULIN RATIO 1.5 (0.8-2.0); ALKALINE PHOSPHATASE 45 IU/L (40-150); AMYLASE 15 U/L (25-125); ANION GAP 9.8 mmol/L (8-16); BLOOD UREA NITROGEN < 5 mg/dL (7-26); CALCIUM 8.5 mg/dL (8.4-10.2); CARBON DIOXIDE 30 mmol/L (22-29); CHLORIDE 101 mmol/L (98-107); CREATININE, SERUM 0.77 mg/dL (0.57-1.11); EST GLOMERULAR FILTRATION RATE > 60 ML/MIN (60-); GLUCOSE 112 mg/dL (74-118); LIPASE 4 U/L (8-78); MAGNESIUM 2.2 MG/DL (1.3-2.1); POTASSIUM 3.8 mmol/L (3.5-5.1); SODIUM 137 mmol/L (136-145)
[2019-03-19 07:08] LABS: BUN/CREATININE RATIO 6 (6-25)
--- NOTE | 2019-03-19 07:30 | NUR ---
PT UP IN BED NO DISTRESS NTOED ,DENIES PAIN,O2 2L NC IN P[LACE
[2019-03-19] MEDS: CYCLOBENZAPRINE HCL 10 MG TAB PO SCH ×2 (09:09→17:29)
[2019-03-19] MEDS: MOXIFLOXACIN HCL(OPTH) 3 ML BTL OP SCH ×4 (09:09→21:28)
[2019-03-19] MEDS: PANTOPRAZOLE 40 MG 10ML VIAL IV SCH ×2 (09:09→21:39)
[2019-03-19] MEDS: PRIMIDONE 50 MG TAB PO SCH (09:12)
[2019-03-19] MEDS: METOPROLOL TARTRATE 25 MG TAB PO SCH ×2 (09:12→17:30)
[2019-03-19] MEDS: NICOTINE 14 MG/EA PATCH TOP SCH (09:12)
[2019-03-19] MEDS: AMLODIPINE BESYLATE 5 MG TAB PO SCH (09:12)
[2019-03-19] MEDS: SERTRALINE HCL 50 MG TAB PO SCH (09:12)
[2019-03-19] MEDS: MAGNESIUM HYDROXIDE 30 ML UDC PO SCH (09:12)
[2019-03-19] MEDS: PREDNISONE 20 MG TAB PO SCH (09:12)
[2019-03-19 10:33] LABS: EOSINOPHILS % (MANUAL) 2 % (0-7); LYMPHOCYTES % (MANUAL) 42 % (19-48); MONOCYTES % (MANUAL) 21 % (3.4-9.0); NEUTROPHILS % (MANUAL) 35 % (40-74); PLATELET ESTIMATE ADEQUATE; RBC MORPHOLOGY COMMENT NORMAL
[2019-03-19] MEDS ORDERED: DIATRIZOATE MEGL/DIATRIZOA SOD 120 ML BTL PO ONE (12:23)
--- NOTE | 2019-03-19 14:00 | NUR ---
PT TRANSPORTED TO [facility] VIA W/C
[2019-03-19] MEDS: METRONIDAZOLE 500MG/NS 100ML 100 ML IV SCH ×2 (14:21→22:50)
--- NOTE | 2019-03-19 15:32 | Diagnostic Imaging Report ---
Exam: Small bowel follow through Clinical history: Obstruction Total fluoroscopy time 1.5 minutes Total images 10 Findings: The patient swallowed approximately 120 cc of Gastrografin without any difficulties. The contrast reached the rectum approximately 2 hours after initial ingestion. Both the small and large bowel loops appear moderately prominent without evidence of mechanical obstruction. No gross evidence of obstructive or constrictive lesion is noted. Impression: 1. Prominent small and large bowel loops without evidence of mechanical obstruction. Signed by: Dr. Tima May MD on 03/19/2019 3:28 PM
--- NOTE | 2019-03-19 18:09 | NUR ---
PT UP IN BED PAIN LEVEL 3 ,NO DISTRESS NTOED.
--- NOTE | 2019-03-19 19:05 | NUR ---
Patient visited in room during nursing rounds. Patient alert and oriented x3. Pt ambulatory in room prn. Pt still having intermittent abdominal pain and nausea and being medicated accordingly. On IVF (NS with 20meqKCL at 100ml/hr). Call hart within reach. Will monitor closely.
[2019-03-19] MEDS: LEVOFLOXACIN 500MG/D5W 100ML 100 ML IV SCH (21:40)
[2019-03-20] VITALS (7 sets, daily range): BP systolic 100–146; BP diastolic 54–77
[2019-03-20] MEDS: ALBUTEROL/IPRATROPIUM 3 ML NEB NEB SCH ×3 (00:28→20:12)
--- NOTE | 2019-03-20 03:05 | NUR ---
Dr. Payton Calvillo came and talked to patient in room. MD aware of pt condition. MD told patient that plan is to upgrade patient's diet and that if patient can tolerate solid food today, then patient can be discharged from GI standpoint.
[2019-03-20] MEDS: ONDANSETRON HCL INJ 2MG/ML 2ML 2 MG/ML VIAL IV PRN ×3 (05:42→21:25)
[2019-03-20] MEDS: MORPHINE SULFATE 2 MG/ML SYR 1ML IV PRN ×4 (05:42→21:25)
[2019-03-20] MEDS: KCL 20MEQ/.9 SOD CHL 1,000 ML IV SCH ×3 (05:45→21:20)
[2019-03-20] MEDS: METRONIDAZOLE 500MG/NS 100ML 100 ML IV SCH ×3 (05:49→22:30)
[2019-03-20 05:59] LABS: BASOPHILS % 0.2 % (0.0-1.0); EOSINOPHILS # (AUTO) 0.3 (0.0-0.4); EOSINOPHILS % 2.5 % (0.0-6.0); HEMATOCRIT 42.6 % (34.2-44.1); HEMOGLOBIN 14.2 g/dL (12.0-16.0); LYMPHOCYTES % 50.5 % (18.0-39.1); MEAN CORPUSCULAR HEMOGLOBIN 30.9 pg (28-32); MEAN CORPUSCULAR HGB CONC 33.3 g/dL (31-35); MEAN CORPUSCULAR VOLUME 92.8 fL (81-99); MONOCYTES % 17.1 % (4.4-11.3); NEUTROPHILS # (AUTO) 3.5 (2.1-6.9); NEUTROPHILS % 29.4 % (38.7-80.0); PLATELET COUNT 267 x10e3/uL (140-360); RED BLOOD COUNT 4.59 x10e6/uL (3.6-5.1); RED CELL DISTRIBUTION WIDTH 15.6 % (11.7-14.4)
[2019-03-20 06:19] LABS: ALANINE AMINOTRANSFERASE 151 IU/L (0-55); ALBUMIN 3.9 g/dL (3.5-5.0); ALBUMIN/GLOBULIN RATIO 1.6 (0.8-2.0); ALKALINE PHOSPHATASE 50 IU/L (40-150); ANION GAP 12.2 mmol/L (8-16); BLOOD UREA NITROGEN < 5 mg/dL (7-26); CALCIUM 8.9 mg/dL (8.4-10.2); CARBON DIOXIDE 28 mmol/L (22-29); CHLORIDE 103 mmol/L (98-107); CREATININE, SERUM 0.69 mg/dL (0.57-1.11); EST GLOMERULAR FILTRATION RATE > 60 ML/MIN (60-); GLUCOSE 70 mg/dL (74-118); POTASSIUM 4.2 mmol/L (3.5-5.1); SODIUM 139 mmol/L (136-145)
[2019-03-20 06:23] LABS: BUN/CREATININE RATIO 7 (6-25)
[2019-03-20 07:09] LABS: EOSINOPHILS % (MANUAL) 5 % (0-7); LYMPHOCYTES % (MANUAL) 51 % (19-48); MONOCYTES % (MANUAL) 19 % (3.4-9.0); NEUTROPHILS % (MANUAL) 25 % (40-74)
[2019-03-20 07:10] LABS: ANISOCYTOSIS SLIGHT; PLATELET ESTIMATE ADEQUATE; PLATELET MORPHOLOGY COMMENT MODERATE LARGE; RBC MORPHOLOGY COMMENT ABNORMAL
--- NOTE | 2019-03-20 07:30 | NUR ---
PT UP ON SIDE OF BED PAIN LEVEL 2 ,NO DISTRES NTOED,NO [address] SATS 95%
[2019-03-20] MEDS: PANTOPRAZOLE 40 MG 10ML VIAL IV SCH ×2 (08:42→21:25)
[2019-03-20] MEDS: MAGNESIUM HYDROXIDE 30 ML UDC PO SCH (08:42)
[2019-03-20] MEDS: AMLODIPINE BESYLATE 5 MG TAB PO SCH (08:42)
[2019-03-20] MEDS: NICOTINE 14 MG/EA PATCH TOP SCH (08:42)
[2019-03-20] MEDS: CYCLOBENZAPRINE HCL 10 MG TAB PO SCH ×2 (08:42→16:57)
[2019-03-20] MEDS: MOXIFLOXACIN HCL(OPTH) 3 ML BTL OP SCH ×4 (08:42→21:20)
[2019-03-20] MEDS: PREDNISONE 20 MG TAB PO SCH (08:42)
[2019-03-20] MEDS: PRIMIDONE 50 MG TAB PO SCH (08:42)
[2019-03-20] MEDS: SERTRALINE HCL 50 MG TAB PO SCH (08:42)
[2019-03-20] MEDS: METOPROLOL TARTRATE 25 MG TAB PO SCH ×2 (09:00→16:58)
--- NOTE | 2019-03-20 16:00 | NUR ---
DR MCNAMARA HERE ORDERS WRITTEN Addendum: 03/20/19 at 1729 by Suyapa Walker LVN ENTERED IN ERROR
--- NOTE | 2019-03-20 17:27 | NUR ---
PT SITTING UP ON SIDE OF BED DENIES PAIN ,NO DISTRESS NTOED.
--- NOTE | 2019-03-20 19:05 | NUR ---
Patient visited in room during nursing rounds. Patient alert and oriented x3. Pt ambulatory in room prn. Pt still having intermittent abdominal pain and nausea and being medicated accordingly. On IVF (NS with 20meqKCL at 75ml/hr). Call hart within reach. Will monitor closely.
[2019-03-20] MEDS: LEVOFLOXACIN 500MG/D5W 100ML 100 ML IV SCH (21:20)
[2019-03-21] VITALS (8 sets, daily range): BP systolic 103–119; BP diastolic 55–78
[2019-03-21] MEDS: ALBUTEROL/IPRATROPIUM 3 ML NEB NEB SCH ×4 (00:14→19:25)
[2019-03-21] MEDS: ONDANSETRON HCL INJ 2MG/ML 2ML 2 MG/ML VIAL IV PRN ×5 (03:09→22:31)
[2019-03-21] MEDS: MORPHINE SULFATE 2 MG/ML SYR 1ML IV PRN ×5 (03:09→22:31)
[2019-03-21] MEDS: METRONIDAZOLE 500MG/NS 100ML 100 ML IV SCH ×3 (06:12→22:31)
[2019-03-21 06:38] LABS: BASOPHILS % 0.2 % (0.0-1.0); EOSINOPHILS # (AUTO) 0.2 (0.0-0.4); EOSINOPHILS % 1.7 % (0.0-6.0); HEMOGLOBIN 13.3 g/dL (12.0-16.0); LYMPHOCYTES # (AUTO) 5.4 (1.0-3.2); LYMPHOCYTES % 42.2 % (18.0-39.1); MEAN CORPUSCULAR HEMOGLOBIN 30.7 pg (28-32); MEAN CORPUSCULAR HGB CONC 33.3 g/dL (31-35); MEAN CORPUSCULAR VOLUME 92.4 fL (81-99); MONOCYTES # (AUTO) 2.7 (0.2-0.8); MONOCYTES % 21.5 % (4.4-11.3); NEUTROPHILS # (AUTO) 4.3 (2.1-6.9); NEUTROPHILS % 34.1 % (38.7-80.0); PLATELET COUNT 273 x10e3/uL (140-360); RED BLOOD COUNT 4.33 x10e6/uL (3.6-5.1); RED CELL DISTRIBUTION WIDTH 15.6 % (11.7-14.4)
[2019-03-21 06:56] LABS: ALANINE AMINOTRANSFERASE 98 IU/L (0-55); ALBUMIN 3.4 g/dL (3.5-5.0); ALBUMIN/GLOBULIN RATIO 1.7 (0.8-2.0); ALKALINE PHOSPHATASE 44 IU/L (40-150); BLOOD UREA NITROGEN 10 mg/dL (7-26); BUN/CREATININE RATIO 13 (6-25); CALCIUM 8.9 mg/dL (8.4-10.2); CARBON DIOXIDE 30 mmol/L (22-29); CHLORIDE 102 mmol/L (98-107); CREATININE, SERUM 0.78 mg/dL (0.57-1.11); EST GLOMERULAR FILTRATION RATE > 60 ML/MIN (60-); GLUCOSE 118 mg/dL (74-118); SODIUM 139 mmol/L (136-145)
--- NOTE | 2019-03-21 07:45 | NUR ---
PT UP IN BED NO DISTRESS NOTED,DR SHIRLEY HERE ORDERS WRITEN,PT PAIN LEVEL 5.
[2019-03-21 08:07] LABS: EOSINOPHILS % (MANUAL) 5 % (0-7); LYMPHOCYTES % (MANUAL) 39 % (19-48); MONOCYTES % (MANUAL) 14 % (3.4-9.0); NEUTROPHILS % (MANUAL) 42 % (40-74)
[2019-03-21 08:08] LABS: PLATELET ESTIMATE ADEQUATE; PLATELET MORPHOLOGY COMMENT NORMAL; RBC MORPHOLOGY COMMENT NORMAL
--- NOTE | 2019-03-21 08:30 | NUR ---
PT C/O PAIN LEVEL 6 MEDICATED.
[2019-03-21] MEDS: MOXIFLOXACIN HCL(OPTH) 3 ML BTL OP SCH ×4 (08:36→21:20)
[2019-03-21] MEDS: CYCLOBENZAPRINE HCL 10 MG TAB PO SCH ×2 (08:36→16:42)
[2019-03-21] MEDS: PANTOPRAZOLE 40 MG 10ML VIAL IV SCH ×2 (08:36→21:20)
[2019-03-21] MEDS: PRIMIDONE 50 MG TAB PO SCH (08:37)
[2019-03-21] MEDS: AMLODIPINE BESYLATE 5 MG TAB PO SCH (08:37)
[2019-03-21] MEDS: SERTRALINE HCL 50 MG TAB PO SCH (08:37)
[2019-03-21] MEDS: MAGNESIUM HYDROXIDE 30 ML UDC PO SCH (08:37)
[2019-03-21] MEDS: METOPROLOL TARTRATE 25 MG TAB PO SCH ×2 (08:37→16:43)
[2019-03-21] MEDS: POLYETHYLENE GLYCOL 3350 17 GM PACK PO SCH ×2 (08:37→16:43)
[2019-03-21] MEDS: PREDNISONE 20 MG TAB PO SCH (08:37)
[2019-03-21] MEDS: NICOTINE 14 MG/EA PATCH TOP SCH (08:37)
[2019-03-21] MEDS: KCL 20MEQ/.9 SOD CHL 1,000 ML IV SCH (16:30)
--- NOTE | 2019-03-21 17:41 | NUR ---
PT RESTING ,NO S/S DISCOMFORT,
--- NOTE | 2019-03-21 19:05 | NUR ---
Patient visited in room during nursing rounds. Patient alert and oriented x3. Pt ambulatory in room prn. Pt still having intermittent abdominal pain and nausea and being medicated accordingly. Call hart within reach. Will monitor closely.
--- NOTE | 2019-03-21 20:30 | NUR ---
Pt ambulating using a walker on the hallway (2nd floor) of the hospital and being accompanied by and daughter. Pt stated she felt fine.
[2019-03-21] MEDS: LEVOFLOXACIN 500MG/D5W 100ML 100 ML IV SCH (21:20)
[2019-03-22] MEDS: ALBUTEROL/IPRATROPIUM 3 ML NEB NEB SCH ×2 (01:10→07:10)
[2019-03-22] MEDS: MORPHINE SULFATE 2 MG/ML SYR 1ML IV PRN ×2 (03:52→08:58)
[2019-03-22] MEDS: ONDANSETRON HCL INJ 2MG/ML 2ML 2 MG/ML VIAL IV PRN ×2 (03:52→08:58)
[2019-03-22 04:30] VITALS: BP 104/70
[2019-03-22 05:58] LABS: BASOPHILS % 0.2 % (0.0-1.0); EOSINOPHILS # (AUTO) 0.2 (0.0-0.4); EOSINOPHILS % 1.4 % (0.0-6.0); HEMATOCRIT 41.9 % (34.2-44.1); HEMOGLOBIN 14.1 g/dL (12.0-16.0); LYMPHOCYTES # (AUTO) 5.9 (1.0-3.2); LYMPHOCYTES % 43.4 % (18.0-39.1); MEAN CORPUSCULAR HGB CONC 33.7 g/dL (31-35); MEAN CORPUSCULAR VOLUME 92.1 fL (81-99); MONOCYTES # (AUTO) 2.8 (0.2-0.8); NEUTROPHILS # (AUTO) 4.5 (2.1-6.9); NEUTROPHILS % 33.4 % (38.7-80.0); PLATELET COUNT 289 x10e3/uL (140-360); RED BLOOD COUNT 4.55 x10e6/uL (3.6-5.1); RED CELL DISTRIBUTION WIDTH 15.9 % (11.7-14.4)
[2019-03-22 06:13] LABS: ALANINE AMINOTRANSFERASE 78 IU/L (0-55); ALBUMIN 3.6 g/dL (3.5-5.0); ALBUMIN/GLOBULIN RATIO 1.6 (0.8-2.0); ALKALINE PHOSPHATASE 44 IU/L (40-150); ANION GAP 11.9 mmol/L (8-16); BLOOD UREA NITROGEN 8 mg/dL (7-26); BUN/CREATININE RATIO 11 (6-25); CALCIUM 8.7 mg/dL (8.4-10.2); CARBON DIOXIDE 25 mmol/L (22-29); CHLORIDE 104 mmol/L (98-107); CREATININE, SERUM 0.73 mg/dL (0.57-1.11); EST GLOMERULAR FILTRATION RATE > 60 ML/MIN (60-); GLUCOSE 84 mg/dL (74-118); POTASSIUM 3.9 mmol/L (3.5-5.1); SODIUM 137 mmol/L (136-145)
[2019-03-22] MEDS: METRONIDAZOLE 500MG/NS 100ML 100 ML IV SCH (06:15)
[2019-03-22 06:26] LABS: EOSINOPHILS % (MANUAL) 1 % (0-7); LYMPHOCYTES % (MANUAL) 48 % (19-48); MONOCYTES % (MANUAL) 24 % (3.4-9.0); NEUTROPHILS % (MANUAL) 27 % (40-74); PLATELET ESTIMATE ADEQUATE; RBC MORPHOLOGY COMMENT NORMAL
[2019-03-22 08:00] VITALS: BP 105/71
[2019-03-22 08:30] VITALS: BP 105/71
[2019-03-22] MEDS: PREDNISONE 20 MG TAB PO SCH (08:57)
[2019-03-22] MEDS: NICOTINE 14 MG/EA PATCH TOP SCH (08:57)
[2019-03-22] MEDS: MOXIFLOXACIN HCL(OPTH) 3 ML BTL OP SCH (08:57)
[2019-03-22] MEDS: PRIMIDONE 50 MG TAB PO SCH (08:57)
[2019-03-22] MEDS: PANTOPRAZOLE 40 MG 10ML VIAL IV SCH (08:57)
[2019-03-22] MEDS: MAGNESIUM HYDROXIDE 30 ML UDC PO SCH (08:57)
[2019-03-22] MEDS: POLYETHYLENE GLYCOL 3350 17 GM PACK PO SCH (08:57)
[2019-03-22] MEDS: SERTRALINE HCL 50 MG TAB PO SCH (08:57)
[2019-03-22] MEDS: CYCLOBENZAPRINE HCL 10 MG TAB PO SCH (08:57)
[2019-03-22] MEDS: METOPROLOL TARTRATE 25 MG TAB PO SCH (08:58)
[2019-03-22] MEDS: AMLODIPINE BESYLATE 5 MG TAB PO SCH (08:58)
[2019-03-22] MEDS: KCL 20MEQ/.9 SOD CHL 1,000 ML IV SCH (08:58)
--- NOTE | 2019-03-23 08:08 | Discharge Summary ---
This is a 63-year-old female, patient of mine, presented with chief complaint of fever and abdominal pain. ADMITTING INPATIENT DIAGNOSES: Abdominal pain, urinary tract infection, abdominal obstruction, tachycardia, hypertension, chronic obstructive pulmonary disease with exacerbation, and hypoxemia. HOSPITAL COURSE/SUMMARY: The patient was admitted with the above diagnosis and treated with IV antibiotics, and Pulmonary and GI consult were done. The patient also had significant hypokalemia, where potassium supplement was also given. GI consultation was done. The patient had gaseous distension and severe ileus. Partial small bowel obstruction. NG tube was attempted, but was not able to inserted. The patient was complaining of abdominal pain, and the patient was CONSTIPATED. The patient was also given IV Solu-Medrol , KUB was done and plan for Interventional Radiology to put NG tube to decompress the small bowel. surgical consultation for the small bowel obstruction called . The patient also developed bacterial conjunctivitis and the patient was treated with antibiotic tobramycin. The patient was needing home oxygen as o2 was only 86%. The patient's O2 arrangement was then made. The patient had endoscopic evaluation done Solu-Medrol was continued and the patient was given prednisone. The patient had EGD and colonoscopy, was done by Dr. Calvillo. The patient had also abdominal CT was done, which showed illeus and small bowel obstruction. Once the patient's bowel movement improved, the patient was restarted the oral feeding. The patient's oral diet was advanced. The patient was also started on Mirapex, and now upon stabilization, the patient will be discharged home. The patient is advised to have a stool softener daily and the patient will need to cut down on the opiate use. MD SHEA Garland/MODESTO /[id number] LADARIUS
== END 2019-03-22 11:40 | disposition home or self-care (01) | DRG 191 ==
LOC: ER 10:07 → ERHOLD 13:16 → MED/SURG3 15:27
PROVIDERS: ADMIT Internal Medicine; ATTEND Internal Medicine
DX: J44.1 Chronic obstructive pulmonary disease with (acute) exacerbation (principal); N39.0 Urinary tract infection, site not specified; K56.609 Unspecified intestinal obstruction, unspecified as to partial versus complete obstruction; R09.02 Hypoxemia; E87.6 Hypokalemia; H10.89 Other conjunctivitis; Z99.81 Dependence on supplemental oxygen; F41.9 Anxiety disorder, unspecified; F31.9 Bipolar disorder, unspecified; I10 Essential (primary) hypertension; E78.5 Hyperlipidemia, unspecified
CPT/HCPCS: 36415; 71045; 74018; 74019; 74177; 74250; 80053; 81001; 81025; 82150; 82550; 82553; 83605; 83690; 83735; 83880; 84484; 85025; 87040; 87071; 87086; 87205; 93005; 94640; 97139; 99285; J1956; J2270; J2405; J2920; J7030; J7512; Q9963; Q9967

== ENCOUNTER 2019-04-19 10:52 | Inpatient (IN) | payer OTHER ==
[~2019-04-19] VITALS: Ht 180.3 cm; Wt 45.8 kg
[~2019-04-19 10:52] MED LIST: AMLODIPINE BESYL5 MG; CYCLOBENZAPRINE10 MG; HYDROCODON-ACE1 EAC9; LOPRESSOR25 MG; MYSOLINE50 MG; OMEPRAZOLE40 MG; SERTRALINE HCL25 MG
[2019-04-19] MEDS ORDERED: SODIUM CHLORIDE 0.9% 1000ML 1,000 ML IV STA ×2 (11:07→12:14)
[2019-04-19] MEDS ORDERED: PANTOPRAZOLE 40 MG 10ML VIAL IV STA (11:07)
[2019-04-19] MEDS ORDERED: ONDANSETRON HCL INJ 2MG/ML 2ML 2 MG/ML VIAL IV STA (11:07)
[2019-04-19 11:29] LABS: BASOPHILS # (AUTO) 0.1 (0.0-0.1); BASOPHILS % 0.6 % (0.0-1.0); EOSINOPHILS # (AUTO) 0.1 (0.0-0.4); EOSINOPHILS % 1.1 % (0.0-6.0); HEMATOCRIT 41.3 % (34.2-44.1); HEMOGLOBIN 14.3 g/dL (12.0-16.0); LYMPHOCYTES # (AUTO) 4.4 (1.0-3.2); LYMPHOCYTES % 40.7 % (18.0-39.1); MEAN CORPUSCULAR HEMOGLOBIN 30.8 pg (28-32); MEAN CORPUSCULAR HGB CONC 34.6 g/dL (31-35); MEAN CORPUSCULAR VOLUME 88.8 fL (81-99); MONOCYTES # (AUTO) 1.4 (0.2-0.8); MONOCYTES % 12.9 % (4.4-11.3); NEUTROPHILS # (AUTO) 4.8 (2.1-6.9); NEUTROPHILS % 44.2 % (38.7-80.0); PLATELET COUNT 266 x10e3/uL (140-360); RED BLOOD COUNT 4.65 x10e6/uL (3.6-5.1); RED CELL DISTRIBUTION WIDTH 14.1 % (11.7-14.4)
[2019-04-19 11:36] LABS: INR 0.99; PROTHROMBIN TIME 13.6 seconds (11.9-14.5)
[2019-04-19 11:41] LABS: ACETAMINOPHEN < 3 ug/mL (10-30)
[2019-04-19 11:45] LABS: ALANINE AMINOTRANSFERASE 9 IU/L (0-55); ALKALINE PHOSPHATASE 73 IU/L (40-150); AMYLASE 35 U/L (25-125); ANION GAP 13.6 mmol/L (8-16); BLOOD UREA NITROGEN 8 mg/dL (7-26); BUN/CREATININE RATIO 12 (6-25); CALCIUM 8.5 mg/dL (8.4-10.2); CARBON DIOXIDE 26 mmol/L (22-29); CHLORIDE 105 mmol/L (98-107); CREATINE KINASE 27 IU/L (29-168); CREATININE, SERUM 0.65 mg/dL (0.57-1.11); EST GLOMERULAR FILTRATION RATE > 60 ML/MIN (60-); LIPASE 53 U/L (8-78); MAGNESIUM 1.7 MG/DL (1.3-2.1); POTASSIUM 3.6 mmol/L (3.5-5.1); SODIUM 141 mmol/L (136-145)
[2019-04-19] MEDS ORDERED: DEXTROSE 50% SYRINGE 50 ML IV STA (11:48)
[2019-04-19 11:49] LABS: GLUCOSE 57 mg/dL (74-118)
--- NOTE | 2019-04-19 11:51 | Diagnostic Imaging Report ---
Chest, 1 view, 04/19/2019. History: Chest pain. Comparison: 03/12/2019. Findings: The cardiomediastinal silhouette and pulmonary vasculature are within normal limits for a portable exam. There is no focal consolidation or pleural effusion. A calcified granuloma is present in the left midlung. There are no acute osseous or soft tissue abnormalities. Impression: No acute cardiopulmonary abnormality. Signed by: Flako Elizabeth on 04/19/2019 11:47 AM
[2019-04-19 11:55] LABS: ABG HCO3 23 mmol/L (23-28); ABG PCO2 42 mmHg (41-51); ABG PH 7.35 (7.31-7.41); ABG PO2 108 mmHg (80-105)
[2019-04-19 12:07] LABS: ALBUMIN 3.4 g/dL (3.5-5.0); ALBUMIN/GLOBULIN RATIO 1.2 (0.8-2.0)
[2019-04-19 12:47] LABS: AMPHETAMINES SCREEN,URINE NEGATIVE (NEGATIVE); BENZODIAZEPINES SCREEN,URINE NEGATIVE (NEGATIVE); PHENCYCLIDINE SCREEN,URINE NEGATIVE (NEGATIVE)
--- NOTE | 2019-04-19 12:58 | Diagnostic Imaging Report ---
CT of the abdomen and pelvis, with contrast, 04/19/2019. History: Abdominal pain and nausea. Comparison: 03/12/2019. Technique: Multidetector CT scanning of the abdomen and pelvis was performed from the level of the lung bases to the inferior pubic rami after intravenous administration of contrast. Coronal and sagittal multiplanar reformations were obtained. RADIATION DOSE: Total DLP: 167 mGy*cm Dose modulation, iterative reconstruction, and/or weight based adjustment of the mA/kV was utilized to reduce the radiation dose to as low as reasonably achievable. Discussion: LUNG BASES: There is right basilar atelectasis. ABDOMEN: Cholecystectomy clips are present. Intrahepatic and extra hepatic biliary ductal prominence is unchanged, likely related to reservoir effect. Bilateral renal cysts are unchanged, the largest 2.7 cm on left. The liver, spleen, pancreas, adrenal glands, and kidneys are normal. The hepatic vein, portal vein, and splenic vein are patent. The abdominal aorta is within normal limits for size. Evaluation of bowel is limited without oral contrast. Mildly dilated small bowel loops are again seen in the upper mid abdomen. Distal small bowel is nondilated. Air is scattered throughout the colon. There is no evidence of adenopathy or free fluid. PELVIS: The bladder is unremarkable. The uterus and adnexa are not visualized. There is no evidence of free fluid or adenopathy. BONES AND SOFT TISSUES: Degenerative changes are present throughout the lumbar spine without evidence of lytic or sclerotic lesion. IMPRESSION: Nonspecific proximal small bowel dilatation is again noted, which may represent enteritis. Status post cholecystectomy and hysterectomy. Otherwise unremarkable exam. Signed by: Flako Elizabeth on 04/19/2019 12:55 PM
[2019-04-19] MEDS ORDERED: VANCOMYCIN 1GM/NS 250 ML 250 ML IV ONE (13:00)
[2019-04-19 13:04] LABS: BILIRUBIN,URINE NEGATIVE (NEGATIVE); CLARITY,URINE CLEAR (CLEAR); COLOR,URINE YELLOW (YELLOW); KETONES,URINE NEGATIVE (NEGATIVE); LEUKOCYTE ESTERASE ,URINE NEGATIVE (NEGATIVE); NITRITE,URINE NEGATIVE (NEGATIVE); PROTEIN,URINE DIPSTICK NEGATIVE (NEGATIVE); URINE UROBILINOGEN 0.2 mg/dL (0.2 - 1)
[2019-04-19 13:08] LABS: BACTERIA,URINE MODERATE /HPF; EPITHELIAL CELLS,URINE MODERATE /LPF; RBC,URINE 0-5 /HPF (0-5); WBC,URINE (MAN) 0-5 /HPF (0-5)
[2019-04-19] MEDS ORDERED: SODIUM CHLORIDE 0.9% 50ML 50 ML ONE ×2 (14:15→22:45)
[2019-04-19] MEDS ORDERED: D5.45%NS/KCL 20MEQ 1,000 ML IV ONE (14:15)
[2019-04-19] MEDS ORDERED: IOPAMIDOL 370 MG/ML 200 ML INFUS..BTL INJ ONE ×2 (14:15→22:45)
[2019-04-19] MEDS: CEFEPIME 2 GM/NS 0.9% 100 ML 100 ML IV SCH (14:15)
[2019-04-19] MEDS ORDERED: DEXTROSE 50% SYRINGE 50 ML IV PRN (14:15)
--- OUTSIDE RECORDS SUMMARY | 2019-04-19 14:26 | XMS REPORT ---
Author Author Admin, [place] Organization Unknown Address Unknown Phone Unavailable PROBLEMS Condition Status Date Provider Notes Tremor, essential active Halley Desai GENERALIZED ANXIETY DISORDER active Halley Desai DEPRESSIVE DISORDER, MAJOR, RECURRENT EPISODE, MODERATE active Halley Desai ENCOUNTERS Date Type Provider Location Encounter Diagnosis - Ambulatory Encounter Halley Desai [facility] UNK - Ambulatory Encounter Halley Desai [facility] UNK - Ambulatory Encounter Halley Desai [facility] UNK - Ambulatory Encounter Halley Thibodeaux [facility] UNK - Ambulatory Encounter Halley Desai [facility] UNK - Ambulatory Encounter Martha Wilkerson [facility] UNK - Ambulatory Encounter Halely Desai [facility] UNK - Ambulatory Encounter Halley Wilkerson [facility] UNK - Ambulatory Encounter Fax Status [facility] UNK - Ambulatory Encounter Fax Status [facility] UNK - Ambulatory Encounter Fax Status [facility] UNK - Ambulatory Encounter Fax Status [facility] UNK - Ambulatory Encounter Fax Status [facility] UNK - Ambulatory Encounter Halley Desai [facility] UNK - Ambulatory Encounter Halley Desai [facility] UNK - Ambulatory Encounter Halley Desai [facility] UNK - Ambulatory Encounter Halley Kemp [facility] Tremor, essential - Ambulatory Encounter Halley Desai [facility] UNK - Ambulatory Encounter Halley Desai [facility] UNK - Ambulatory Encounter Halley Desai [facility] UNK - Ambulatory Encounter Halley Gonzalez Melendez [facility] DEPRESSIVE DISORDER, MAJOR, RECURRENT EPISODE, MODERATEGENERALIZED ANXIETY DISORDER - Ambulatory Encounter Pia Thibodeaux [facility] UNK - Ambulatory Encounter Francisca Shaw [facility] UNK VITAL SIGNS No Information Available Allergies No Known Allergy Information REASON FOR REFERRAL Start Date - End Date Service - Neurology - External RESULTS No Information Available HISTORY OF IMMUNIZATIONS No Information Available HISTORY OF MEDICATION USE Medication Instructions Dates Provider Comments ZOLOFT 25 MG ORAL TABLET Take 1 tablet By Mouth QA Halley Desai CYMBALTA 30 MG ORAL CAPSULE DELAYED RELEASE PARTICLES Take 1 capsule By Mouth QAM - Halley Desai MIRTAZAPINE 45 MG ORAL TABLET Take 1 tablet By Mouth Q Halley Desai LEVALBUTEROL TARTRATE AEROSOL Halley Desai FROVATRIPTAN SUCCINATE 2.5 MG ORAL TABLET Halley Desai HYDROCODONE-ACETAMINOPHEN 10-325 MG/15ML ORAL SOLUTION Halley Desai CYCLOBENZAPRINE HCL 10 MG ORAL TABLET Halley Desai SYMBICORT AEROSOL Halley Desai ALBUTEROL SULFATE NEBULIZATION SOLUTION Halley Desai METOPROLOL TARTRATE 25 MG ORAL TABLET BID Halley Desai OMEPRAZOLE 40 MG ORAL CAPSULE DELAYED RELEASE Halley Desai VALIUM 10 MG ORAL TABLET Take 1/2 tablet By Mouth BID As Needed for anxiety Halley Desai PT NEEDS APPT FOR FUTURE REFILLS WELLBUTRIN XL 150 MG ORAL TABLET EXTENDED RELEASE 24 HOUR Take 1 tablet By Mouth QAM - Halley Desai TRAZODONE HCL 150 MG ORAL TABLET Take 1 tablet By Mouth QHS - Halley Desai SOCIAL HISTORY Date Observation Value Provider drug use, illicit Never Halley Desai " alcohol use Previously Halley Desai " smoking status current some day smoker Halley Desai " social history E&M has grown son, daughter, grandkids, "always checking up on me". unknown about siblings, was raised in foster care Not homeless. lives in [place], uses medical transportation Lives in apartment by herself. Not employed. 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 Halley Desai " social history reviewed E&M reviewed today Halley Desai drug use, illicit Never Halley Desai " alcohol use Previously Halley Desai " smoking status current some day smoker Halley Desai " social history E&M has grown son, daughter, grandkids, "always checking up on me". unknown about siblings, was raised in foster care Not homeless. lives in [place], uses medical transportation Lives in apartment by herself. Not employed. 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 Halley Desai " social history reviewed E&M reviewed today Halley Desai drug use, illicit Never Halley Desai " alcohol use Previously Halley Desai " smoking status current some day smoker Halley Desai " social history E&M has grown son, daughter, grandkids, "always checking up on me". unknown about siblings, was raised in foster care Not homeless. lives in [place], uses medical transportation Lives in apartment by herself. Not employed. used to work for housekeeping services at [employer] Sexually Active: No. Halley Desai " social history reviewed E&M reviewed today Halley Desai drug use, illicit Never Halley Desai " alcohol use Previously Halley Desai " smoking status current some day smoker Halley Desai " social history reviewed E&M reviewed today Halley Lloyd " social history E&M has grown son, daughter, grandkids, "always checking up on me". unknown about siblings, was raised in foster care Not homeless. lives in [place], uses medical transportation Lives in apartment by herself. Not employed. 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 Halley Desai " family support has grown son, daughter, grandkids, "always checking up on me". unknown about siblings, was raised in foster care. of heart attack about 10 yrs ago. Halley Desai " patient considered to be homeless No Halley Desai " home/family situation, assessment lives in [place], uses medical transportation Lives in apartment by herself. Moved from assisted living. Halley Desai FUNCTIONAL STATUS No Information Available MENTAL STATUS Date Observation Value Provider mental status assessment, judgment fair Halley Desai " insight (mental status exam) fair Halley Desai" Mental Status Exam: intelligence adequate fund of information, intact memory processes, oriented to person, oriented to place, oriented to time, oriented to situation, oriented to reality Halley Desai " hallucinations none Halley Desai " thought content (mental status exam) (E&M) lucid Halley Desai " mental status assessment, process able to abstract, goal-directed, logical Halley Desai " mental status assessment, sensorium alert, attentive, clear Halley Desai " affect (mental status exam) congruent, normal intensity, normal range, anxious Halley Desai" mood (mental status exam) pleasant, sad Halley Desai " mental status assessment, speech activity normal flow, normal pace, normal pressure, normal rate, normal tone, normal volume, spontaneous Halley Desai " mental status assessment, motor activity slowing, tremors Halley Desai " behavior (mental status exam) appropriate, candid, cooperative, good eye contact, polite, responsive Halley Desai " mental appearance (mental status exam) adequate hygiene, appropriate dress, looks like stated age, neat, looks older than age [facility] mental status assessment, judgment fair Halley Desai " insight (mental status exam) fair Halley Desai " Mental Status Exam: intelligence adequate fund of information, intact memory processes, oriented to person, oriented to place, oriented to time, oriented to situation, oriented to reality Halley Desai " hallucinations none Halley Desai " thought content (mental status exam) (E&M) lucid Halley Desai " mental status assessment, process able to abstract, goal-directed, logical Halley Desai " mental status assessment, sensorium alert, attentive, clear Halley Desai " affect (mental status exam) congruent, normal intensity, normal range, anxious Halley Desai " mood (mental status exam) pleasant, sad Halley Desai " mental status assessment, speech activity normal flow, normal pace, normal pressure, normal rate, normal tone, normal volume, spontaneous Halley Desai " mental status assessment, motor activity slowing, tremors Halley Desai " behavior (mental status exam) appropriate, candid, cooperative, good eye contact, polite, responsive Halley Desai " mental appearance (mental status exam) adequate hygiene, appropriate dress, looks like stated age, neat, looks older than age [facility] [place] mental status assessment, motor activity slowing, tremors Halley Desai " mental status assessment, judgment fair Halley Desai " insight (mental status exam) fair Halley Desai " Mental Status Exam: intelligence adequate fund of information, intact memory processes, oriented to person, oriented to place, oriented to time, oriented to situation, oriented to reality Halley Desai " hallucinations none Halley Desai " thought content (mental status exam) (E&M) lucid Halley Desai " mental status assessment, process able to abstract, goal-directed, logical Halley Desai " mental status assessment, sensorium alert, attentive, clear Halley Desai " affect (mental status exam) congruent, normal intensity, normal range, anxious Halley Desai " mood (mental status exam) pleasant, sad Halley Desai " mental status assessment, speech activity normal flow, normal pace, normal pressure, normal rate, normal tone, normal volume, spontaneous Halley Desai " behavior (mental status exam) appropriate, candid, cooperative, good eye contact, polite, responsive Halley Desai " mental appearance (mental status exam) adequate hygiene, appropriate dress, looks like stated age, neat, looks older than age Halley Desai mood (mental status exam) sad, worried Halley eDsai " mental status assessment, judgment fair Halley Desai " insight (mental status exam) fair Halley Desai " Mental Status Exam: intelligence adequate fund of information, intact memory processes, oriented to person, oriented to place, oriented to time, oriented to situation, oriented to reality Halley Desai " hallucinations none Halley Desai " thought content (mental status exam) (E&M) lucid Halley Desai " mental status assessment, process able to abstract, goal-directed, logical Halley Desai " mental status assessment, sensorium alert, attentive, clear Halley Desai " affect (mental status exam) congruent, normal intensity, normal range, anxious Halley Desai " mental status assessment, speech activity normal flow, normal pace, normal pressure, normal rate, normal tone, normal volume, spontaneous Halley Desai " mental status assessment, motor activity normal gait Halley Desai " behavior (mental status exam) appropriate, candid, cooperative, good eye contact, polite, responsive Halley Desai " mental appearance (mental status exam) adequate hygiene, appropriate dress, looks like stated age, neat, looks older than age Halley Desai " anxiety worry a lot, sleep disturbance, restlessness, many physical complaints, panic attacks Halleychrist Desai MEDICAL EQUIPMENT No Information Available FAMILY HISTORY No Information Available INSURANCE PROVIDERS No Information Available ADVANCE DIRECTIVES No Information Available TREATMENT PLAN Date Name - Est Patient Exp Problem - 11146 Est Patient Exp Problem - 53385 [facility] Est Patient Exp Problem - 75267 Diagnostic evaluation with medical - 47440 HISTORY OF PROCEDURES Procedure Date Procedure Name Provider Procedure Notes Status Diagnostic evaluation with medical - 18201 Halley Desai completed GOALS No Information Available HEALTH CONCERNS No Information Available
[2019-04-19] MEDS: FAMOTIDINE 20 MG/2 ML VIAL IV SCH ×2 (14:29→20:58)
[2019-04-19] MEDS: MORPHINE SULFATE 2 MG/ML SYR 1ML IV PRN ×3 (15:06→23:44)
[2019-04-19 16:40] VITALS: BP 109/64
[2019-04-19 17:30] VITALS: BP 109/64
[2019-04-19] MEDS ORDERED: INFLUENZA VIRUS VAC SPLIT INJ 0.5 ML SYR IM SCH (17:57)
[2019-04-19] MEDS ORDERED: PNEUMOCOCCAL VACCINE POLYVALENT 23 MCG/0.5 ML VIAL IM SCH (17:57)
--- NOTE | 2019-04-19 19:17 | NUR ---
ROUNDS DONE, PATIENT RESTING IN BED, IV INFUSING, FAMILY AT THE BEDSIDE. NO DISTRESS NOTED. CALL LIGHT IN REACH. WILL CONTINUE TO MONITOR.
[2019-04-19 20:00] VITALS: BP 107/60
[2019-04-19] MEDS ORDERED: ENOXAPARIN SOD INJ 60 MG/0.6 ML SYR SC ONE (20:04)
[2019-04-19 20:33] LABS: CREATINE KINASE 33 IU/L (29-168)
--- NOTE | 2019-04-19 21:41 | Diagnostic Imaging Report ---
EXAMINATION: CT of the chest with contrast, PE protocol. TECHNIQUE: Spiral CT images of the chest were performed from the lung apices through the level of the adrenal glands after the IV administration of 100 cc of Isovue-370. Thin section reconstructions were obtained with special concentration on the pulmonary arteries. Coronal and sagittal reformatted images were performed. COMPARISON: Portable chest 04/19/2019 CLINICAL HISTORY:Syncope, leg edema DISCUSSION: Lungs: No filling defects are identified in the main, right or left pulmonary arteries to their segmental levels, to suggest pulmonary embolism. Marked bilateral centrilobular emphysematous changes, worse in the upper lobes. Linear opacity in the right apex likely reflects confluent scarring (series 3, image 19). Linear scarring is also noted in the right lower lobe (series 3, image 95). No nodules, masses or consolidation. Airways: Major airways are clear, without endobronchial lesions. Pleura: <There is no evidence of pleural effusion or pneumothorax.> Heart and mediastinum: Thyroid is unremarkable. Heart size is normal. No pericardial effusion. Aorta is nonaneurysmal. The pulmonary artery is enlarged, measuring approximately 3.7 cm. Patulous esophagus moderate hiatal hernia. Lymph nodes: No mediastinal, hilar or axillary adenopathy. Abdomen: The visualized portions of the liver and pancreas and adrenal glands are unremarkable. 2.9 cm fluid density lesion in the left kidney consistent with a simple cyst. A 1 cm fluid density lesion in the right superior pole, consistent with a simple cyst. Cholecystectomy clips. Bones and soft tissues: Generalized osteopenia. Degenerative disc changes in the thoracic spine. No aggressive lytic lesions. 2.9 cm focal area of asymmetric breast tissue in the right breast (series 2, image 55). IMPRESSION: 1. No CT evidence of pulmonary embolism. 2. Marked bilateral centrilobular emphysematous changes. Right upper and right lower lobe scarring no masses or consolidation. 3. Enlarged main pulmonary artery, consistent with pulmonary hypertension. 4. 2.9 cm focal area of asymmetric breast tissue in the right breast. Correlate with mammography for breast mass. Signed by: Dr. Yony Robison M.D. on 04/19/2019 9:38 PM
--- NOTE | 2019-04-19 22:52 | Consultation ---
DATE OF CONSULTATION: 04/19/2019 Cardiology Consultation CONSULTING PHYSICIAN: Dr. David Walters, Interventional Cardiology. REASON FOR CONSULTATION: Syncope. HISTORY OF PRESENT ILLNESS: This pleasant 63-year-old woman with history of COPD, bipolar, dyslipidemia, chronic back pain, who presents with complaints of lightheadedness and fainting. She was found down by family member on the floor after she fell from a chair after the patient was attempted to stand up. She fell again in presence of family member. The patient was confused for several minutes until she arrived to the ER. She does not recall symptoms preceding event or surrounding event including any chest pain, shortness of breath, headaches, or other associated complaints. She has, however, noticed, in the last three days chest discomfort, noticeable as left-sided, pressure-like, moderate severity, constant for three days, worse with deep inspiration and cough as well as movement of left upper extremity, unaffected by exertion and occurring while at rest. REVIEW OF SYSTEMS: Twelve system review is negative except for as noted above. PAST MEDICAL HISTORY: Significant for COPD, hypertension, bipolar. SOCIAL HISTORY: Remarkable for active smoking, no alcohol, no drugs. FAMILY HISTORY: Significant for hypertension. ALLERGIES: TO PENICILLIN, TRAMADOL COATED IN EMR. HOME MEDICATIONS: Reviewed, amlodipine 5 mg daily, metoprolol tartrate 75 mg b.i.d. PHYSICAL EXAMINATION: VITAL SIGNS: Studies, temperature 97.3, heart rate 97, respiratory rate 16, blood pressure 113/81, O2 saturation 95% on 3 L/minute nasal cannula. GENERAL: In no acute distress, alert. NECK: No JVD. No carotid bruits. CHEST: Clear to auscultation. Prolonged expiratory phase. CARDIOVASCULAR: Regular rate and rhythm. Normal S1, S2. No S3 or S4. Systolic ejection murmur 1/6, no S3 no S4. ABDOMEN: Soft, nontender. Bowel sounds positive. EXTREMITIES: With edema 1+ to left lower extremity, trace to right lower extremity. SKIN: Euthermic to distal extremities, dry, mucosa moist. CARDIOVASCULAR MEDICATIONS: Reviewed. 1. Metoprolol tartrate 75 mg b.i.d. 2. Amlodipine 5 mg daily. 3. Aspirin 81 mg daily. LABORATORY DATA: Studies reviewed. White blood cells 10.7, hemoglobin 14.3, platelets 266. INR 0.9, PT 13.6, PTT 28. D-dimer 0.36. Lactic acid was slightly elevated. Initial evaluation at 1134 hours at 22 above reference range and then became within normal reference range and followup study 1654 hours with a level 15.3, glucose 117. Sodium 141, potassium 3.6, chloride 105, bicarbonate 26, BUN 8, creatinine 0.6, calcium 8.5, magnesium 1.7, total bilirubin 0.5, AST 21, ALT 9, alkaline phosphatase 73. CK 27, CK-MB 1.1, troponin I 0.005, total protein 6.2, albumin 3.4, lipase 53. Amylase 35. EKG, sinus rhythm, inferior infarct, age undetermined. ASSESSMENT: A 63-year-old woman presents with syncope in the setting of sitting position. 1. Atypical chest pain with pleuritic features. 2. Lower extremity edema, asymmetric left more than right lower extremity. 3. Abnormal EKG with inferior infarct, age undetermined. 4. Lactic acidosis, improved, following hydration. RECOMMEND: 1. Obtain echocardiogram. 2. Obtain bilateral lower extremity venous ultrasound. 3. CTA chest PE protocol to rule out pulmonary embolism. 4. Please keep on telemetry. 5. Continue IV hydration and check orthostatics in a.m. 6. Lovenox 1 dose therapeutic weight while being ruled out for PE. I thank, Dr. Downing for the opportunity to participate in the care of Ms. Olea. Please feel free to call with any questions. MD THEO Johnson/[place] /[id number]
[2019-04-19 23:07] VITALS: BP 107/60
[2019-04-19] MEDS: ONDANSETRON HCL INJ 2MG/ML 2ML 2 MG/ML VIAL IV PRN (23:44)
[2019-04-20] VITALS (8 sets, daily range): BP systolic 113–140; BP diastolic 58–77
[2019-04-20] MEDS ORDERED: BELLADONNA ALK/PHENOBARBITAL 5 ML UDC ONE (00:58)
[2019-04-20] MEDS ORDERED: MAGNESIUM/ALUMINUM/SIMETHICONE 30 ML UDC ONE (00:58)
[2019-04-20] MEDS ORDERED: DONNATAL/LIDOCAINE/MAALOX 30 ML SUSP PO ONE (01:00)
[2019-04-20] MEDS ORDERED: LIDOCAINE VISC 2% SOLN 15 ML UDC ONE (01:04)
[2019-04-20] MEDS: CEFEPIME 2 GM/NS 0.9% 100 ML 100 ML IV SCH ×2 (01:09→16:25)
--- NOTE | 2019-04-20 02:03 | History and Physical ---
CHIEF COMPLAINT: She is a 63-year-old female patient, presented to the emergency room with chest pain and abdominal pain. HISTORY OF PRESENT ILLNESS: Ms. fJ Olea is a 63-year-old female patient, who was recently discharged from the hospital with an intestinal ileus and abdominal pain and presented to the emergency room with a complaint of abdominal pain, chest pain. The patient denies any nausea, vomiting, or diarrhea. The patient stated that she drinks some vodka this morning on a birthday democrat. The patient was having chest pain and ABD pain. PAST MEDICAL HISTORY: Hypertension, hyperlipidemia, bipolar, COPD, chronic pain and chronic knee pain and COPD and tremors. PAST SURGICAL HISTORY: Splenectomy, back and neck surgery, and bilateral foot surgery. ALLERGIES: PATIENT IS ALLERGIC TO PENICILLIN AND TRAMADOL. MEDICATIONS: See from the list. SOCIAL HISTORY: Patient is a smoker and drinks alcohol. FAMILY HISTORY: Hypertension, hyperlipidemia. REVIEW OF SYSTEMS: Abdominal pain, chest pain. Detailed review of system and examination done as per history of present illness. PHYSICAL EXAMINATION: GENERAL: She is a middle-aged female, patient lying in bed, not in any acute distress. VITAL SIGNS: Temperature 99, pulse rate 120, respiration rate 20, blood pressure 130/70. HEENT: Normocephalic, atraumatic. NECK: No JVD. No lymphadenopathy. LUNGS: Bilateral equal air entry. RHONCHI + HEART: S1, S2. Regular. Systolic murmur. ABDOMEN: Soft. Bowel sounds present. No tenderness. No guarding. No rigidity. NEUROLOGIC: No focal neurological deficit. ADMITING IMPRESSION/DIAGNOSIS: Atypical chest pain, abdominal pain and lactic acidosis and the patient has alcohol screen positive. The patient has metabolic acidosis. Urine had moderate bacteria. PLAN: The patient was admitted with above diagnoses. The patient was given IV fluids. I will obtain Cardiology and GI consultation. The patient was given IV antibiotics in the emergency room. We will obtain blood and urine cultures. MD SHEA Garland/[place] /[id number] LADAR[place]
[2019-04-20 05:48] LABS: BASOPHILS % 0.4 % (0.0-1.0); EOSINOPHILS # (AUTO) 0.2 (0.0-0.4); EOSINOPHILS % 2.2 % (0.0-6.0); HEMATOCRIT 39.1 % (34.2-44.1); HEMOGLOBIN 13.3 g/dL (12.0-16.0); LYMPHOCYTES # (AUTO) 1.5 (1.0-3.2); LYMPHOCYTES % 14.2 % (18.0-39.1); MEAN CORPUSCULAR HEMOGLOBIN 30.7 pg (28-32); MEAN CORPUSCULAR VOLUME 90.3 fL (81-99); MONOCYTES # (AUTO) 1.2 (0.2-0.8); MONOCYTES % 11.5 % (4.4-11.3); NEUTROPHILS # (AUTO) 7.5 (2.1-6.9); NEUTROPHILS % 71.2 % (38.7-80.0); PLATELET COUNT 252 x10e3/uL (140-360); RED BLOOD COUNT 4.33 x10e6/uL (3.6-5.1); RED CELL DISTRIBUTION WIDTH 14.3 % (11.7-14.4)
[2019-04-20 06:06] LABS: CREATINE KINASE 28 IU/L (29-168)
[2019-04-20 06:29] LABS: ALANINE AMINOTRANSFERASE 15 IU/L (0-55); ALBUMIN 3.3 g/dL (3.5-5.0); ALBUMIN/GLOBULIN RATIO 1.2 (0.8-2.0); ALKALINE PHOSPHATASE 86 IU/L (40-150); ANION GAP 9.3 mmol/L (8-16); BLOOD UREA NITROGEN 5 mg/dL (7-26); BUN/CREATININE RATIO 9 (6-25); CALCIUM 8.8 mg/dL (8.4-10.2); CARBON DIOXIDE 30 mmol/L (22-29); CHLORIDE 99 mmol/L (98-107); CHOLESTEROL 193 MD/DL (0-199); CREATININE, SERUM 0.56 mg/dL (0.57-1.11); EST GLOMERULAR FILTRATION RATE > 60 ML/MIN (60-); GLUCOSE 103 mg/dL (74-118); HDL CHOLESTEROL 48 MG/DL (40-60); LDL CHOLESTEROL 123 MG/DL (60-130); POTASSIUM 3.3 mmol/L (3.5-5.1); SODIUM 135 mmol/L (136-145); TRIGLYCERIDES 110 MG/DL (0-149)
--- NOTE | 2019-04-20 06:59 | NUR ---
ROUNDS DONE WITH AM NURSE, PATIENT'S ASLEEP.
--- NOTE | 2019-04-20 07:05 | NUR ---
Received patient lying in bed. Respiration even and unlabored without SOB. Call light in reach.
[2019-04-20] MEDS: FAMOTIDINE 20 MG/2 ML VIAL IV SCH ×2 (08:01→20:20)
[2019-04-20] MEDS: MORPHINE SULFATE 2 MG/ML SYR 1ML IV PRN ×4 (08:01→22:55)
[2019-04-20] MEDS: METOPROLOL TARTRATE 25 MG TAB PO SCH ×2 (09:00→16:16)
--- NOTE | 2019-04-20 09:21 | NUR ---
WOUND CARE CONSULT DONE 04-19-19 FOR 89YO M LJ 14 /MODERATE PUP ON ALTERNATING MATTRESS HX A FIB DEMENTIA,HYPOTENSION LABS: WBC- 7.84,HGB-10.3,GLUCOSE - 99 BLOOD CULTURE NEGATIVE PT SKIN ASSESSMENT REVEALS MULTIPLE SKIN TEARS LEFT LE AND LFT ARM WOUND DOCUMENTATION LISTED ON WOUND FLOW SHEET RECOMMENDATIONS: NURSING TO CONTINUE TO PROTECT AND OFFLOAD FOLLOWING MODERATE PUP GUIDELINES NURSING TO CONTINUE TO MOTIVATE AND ASSIST PATIENT OUT OF BED FOR MEALS AND MUCH TOLERATED NURSING TO ASSESS DAILY AND MAINTAIN STERI STRIPS TO SKIN TEARS ON PERRY AND LEFT ARM NURSING TO APPLY EVERY OTHER DAY COLLAGEN (PURACOL) COVER WITH FOAM AND TEGRADERM AVOID TAPE DUE TO THIN FRAGILE SKIN Addendum: 04/20/19 at 0933 by Yovany Augustin RN Amended: Links added.
[2019-04-20] MEDS ORDERED: POTASSIUM CHLORIDE 10MEQ EA PO ONE (11:00)
--- NOTE | 2019-04-20 11:42 | NUR ---
Patient went to stress test at this time
--- NOTE | 2019-04-20 11:46 | NUR ---
Call placed to Dr. decker to clarify mammogram order
[2019-04-20] MEDS ORDERED: REGADENOSON 0.4 MG/5 ML SYR IV ONE (12:22)
--- NOTE | 2019-04-20 15:53 | NUR ---
Patient returned from stress test at this time
[2019-04-20] MEDS: PRIMIDONE 50 MG TAB PO SCH (16:09)
[2019-04-20] MEDS: PANTOPRAZOLE SOD 40 MG TABEC PO SCH (16:09)
[2019-04-20] MEDS: ASPIRIN 81 MG ENTERIC COATED PO SCH (16:09)
[2019-04-20] MEDS: AMLODIPINE BESYLATE 5 MG TAB PO SCH (16:16)
[2019-04-20] MEDS ORDERED: SODIUM CHLORIDE 0.9% 250ML 250 ML ONE (16:32)
[2019-04-20] MEDS ORDERED: POTASSIUM CHLORIDE 10MEQ EA PO SCH (17:00)
--- NOTE | 2019-04-20 19:06 | NUR ---
Report given to leather roller. Patient lying in bed, respiration even and unlabored without SOB. Call light in reach.
--- NOTE | 2019-04-20 19:48 | Progress Note ---
DATE: 04/20/2019 Cardiology Progress Note SUBJECTIVE: No complaints today. OBJECTIVE: VITAL SIGNS: Temperature 98.2, heart rate 122, respiratory rate 25, blood pressure 113/60, O2 saturation 97% on room air. GENERAL: No acute distress, alert. NECK: No JVD. CHEST: Clear to auscultation. CARDIOVASCULAR: Regular rate and rhythm. Normal S1, S2. ABDOMEN: Soft, nontender. Bowel sounds positive. EXTREMITIES: Trace edema. CARDIOVASCULAR MEDICATIONS: Reviewed. Metoprolol tartrate 25 mg b.i.d., amlodipine 5 mg daily, aspirin 81 mg daily. LABORATORY DATA: Studies reviewed. White blood cells 10.4, hemoglobin 13.3, platelets 252. Sodium 135, potassium 3.3, chloride 99, bicarbonate 30, BUN 5, creatinine 0.56, glucose 112, calcium 8.8, total bilirubin 0.7, AST 26, ALT 15, alkaline phosphatase 86. Troponin I negative x3. LDL 123, HDL 48, triglycerides 110, total cholesterol 193. Amylase 35, lipase 53. TELEMETRY: Sinus rhythm, sinus tachycardia. No hemodynamically significant extracranial carotid stenosis by Doppler. Her lower extremity venous ultrasound negative for DVT bilaterally. CT chest, no evidence of pulmonary embolism with mass, bilateral central lobular emphysematous changes. Large main pulmonary artery consistent with pulmonary hypertension and 2.9 cm focal area of asymmetric breast tissue in the right breast advising correlation with mammography for assessment of breast mass. Stress test being performed today. Images pending to be completed and then after processing report we will follow. ASSESSMENT: A 63-year-old woman, who presents with syncope, has right breast mass on CT, has emphysematous changes on imaging studies, atypical chest pain with pleuritic features, lower extremity asymmetric edema, abnormal EKG with inferior infarct, age undetermined. Lactic acidosis. RECOMMENDATIONS: 1. Await stress test results. 2. Echocardiogram, has been ordered, however, not performed yet. When image is available, we will review and followup with results later, otherwise can set up as outpatient if there are patient plans for discharge. 3. Outpatient telemetry monitoring is being considered. Continue current cardiovascular medications otherwise. David Smith MD AFV/MODL /[id number]
[2019-04-20] MEDS: ONDANSETRON HCL INJ 2MG/ML 2ML 2 MG/ML VIAL IV PRN (20:25)
--- NOTE | 2019-04-20 23:49 | Myoview Stress Test ---
DATE OF STUDY: 04/20/2019 07:42:00 Stress Test - Treadmill ONLY INTERPRETING AND SUPERVISING PHYSICIAN: David Smith MD, Interventional Cardiology. PROCEDURE INDICATION: Chest pain and syncope. INTERPRETATION: At rest, heart rate of 125, blood pressure 111/80. Her resting EKG is sinus tachycardia, left axis deviation, poor R-wave progression. After Lexiscan was administered, heart rate jessie to 154 beats per minute and blood pressure increased to 139/86. There were no significant ST changes or arrhythmias throughout stress or recovery. Myocardial perfusion reveals normal rest and stress perfusion. Gated images demonstrate hyperdynamic left ventricular systolic function, normal regional wall motion, and left ventricular ejection fraction more than 70%. CONCLUSIONS: 1. Normal hemodynamic response to Lexiscan stress. 2. Normal electrocardiographic response to Lexiscan stress. 3. Normal myocardial perfusion at rest and post stress. 4. Hyperdynamic LV systolic function with LVEF more than 70%. David Smith MD [facility]/MODL /[id number]
[2019-04-21] VITALS (7 sets, daily range): BP systolic 100–109; BP diastolic 56–67
[2019-04-21] MEDS: MORPHINE SULFATE 2 MG/ML SYR 1ML IV PRN ×4 (01:56→19:09)
[2019-04-21] MEDS: ONDANSETRON HCL INJ 2MG/ML 2ML 2 MG/ML VIAL IV PRN ×3 (01:57→23:56)
[2019-04-21] MEDS: CEFEPIME 2 GM/NS 0.9% 100 ML 100 ML IV SCH ×2 (04:03→16:00)
[2019-04-21 06:40] LABS: ALANINE AMINOTRANSFERASE 10 IU/L (0-55); ALBUMIN 2.9 g/dL (3.5-5.0); ALBUMIN/GLOBULIN RATIO 1.1 (0.8-2.0); ALKALINE PHOSPHATASE 72 IU/L (40-150); ANION GAP 9.3 mmol/L (8-16); BLOOD UREA NITROGEN 8 mg/dL (7-26); BUN/CREATININE RATIO 13 (6-25); CALCIUM 8.9 mg/dL (8.4-10.2); CARBON DIOXIDE 30 mmol/L (22-29); CHLORIDE 99 mmol/L (98-107); CREATININE, SERUM 0.64 mg/dL (0.57-1.11); EST GLOMERULAR FILTRATION RATE > 60 ML/MIN (60-); GLUCOSE 138 mg/dL (74-118); POTASSIUM 3.3 mmol/L (3.5-5.1); SODIUM 135 mmol/L (136-145)
[2019-04-21] MEDS: AMLODIPINE BESYLATE 5 MG TAB PO SCH (08:36)
[2019-04-21] MEDS: PANTOPRAZOLE SOD 40 MG TABEC PO SCH (08:36)
[2019-04-21] MEDS: ASPIRIN 81 MG ENTERIC COATED PO SCH (08:36)
[2019-04-21] MEDS: FAMOTIDINE 20 MG/2 ML VIAL IV SCH ×2 (08:36→20:43)
[2019-04-21] MEDS: METOPROLOL TARTRATE 25 MG TAB PO SCH ×2 (08:36→17:00)
[2019-04-21] MEDS: PRIMIDONE 50 MG TAB PO SCH (08:36)
[2019-04-21] MEDS ORDERED: SODIUM CHLORIDE 0.9% 250ML 250 ML ONE (10:37)
[2019-04-21] MEDS ORDERED: MAGNESIUM SULFATE 2GM/50ML 50 ML IV ONE (11:00)
[2019-04-21] MEDS ORDERED: POTASSIUM CHLORIDE 20 MEQ TAB CR PO ONE (11:00)
--- NOTE | 2019-04-21 12:00 | NUR ---
Pt's "laney" requested to get in hospital. Pt's laney produced a marriage license and asked if commission specialist could preform their marriage "before she dies." Provided information concerning marriages and suggested other avenues for marriage. KB MALONE Chopping Machine Operator Spiritual Care Department O: [phone] Pager: [phone] ([phone] number calling from)
--- NOTE | 2019-04-21 12:37 | Progress Note ---
DATE: 04/21/2019 Cardiology Progress Note SUBJECTIVE: No new complaints. OBJECTIVE: VITAL SIGNS: Temperature 98.9, heart rate 87, respiratory rate 22, blood pressure 100/67, O2 saturation 98%. GENERAL: In no acute distress. Alert. NECK: No JVD. CHEST: Scattered rhonchi. CARDIOVASCULAR: Regular rate and rhythm. Normal S1 and S2. No S3 or S4. No murmurs. No rubs. ABDOMEN: Soft, nontender. Bowel sounds positive. EXTREMITIES: No cyanosis, clubbing, or edema. CARDIOVASCULAR MEDICATIONS: Reviewed. 1. Amlodipine 5 mg daily. 2. Aspirin 81 mg daily. 3. Metoprolol tartrate 25 mg b.i.d. STUDIES: Reviewed. Sodium 135, potassium 3.3, chloride 99, bicarbonate 30, BUN 8, creatinine 0.6, glucose 138. White blood cells 10, hemoglobin 13, platelets 252. INR 0.9. AST 17, ALT 10, alkaline phosphatase 72. Total bilirubin 0.6. ASSESSMENT: A 63-year-old woman, presents with: 1. Syncope. 2. Atypical chest pain. 3. History of active smoking. 4. Alcohol abuse. 5. Hypertension. 6. Dyslipidemia. 7. Syncope. I suspect related to volume depletion and alcohol intoxication. RECOMMENDATIONS: Counseled on smoking cessation as well as alcohol abuse cessation. The patient is scheduled for GI evaluation. Stress test was reviewed. Preserved left ventricular systolic function and normal myocardial perfusion results. The patient has myn-py-hynenlhx risk for adverse cardiovascular outcomes with noncardiac procedures including GI evaluation. Continue perioperative beta-blockers. Okay to discharge once workup complete with outpatient followup from cardiac standpoint in 4-6 weeks. MD [facility]/MODL /[id number]
--- NOTE | 2019-04-21 18:30 | NUR ---
Paged Munira Higgins on clarification on EGD
--- NOTE | 2019-04-21 18:50 | NUR ---
Dr.Haddad Lombardo states " We can't do EGD today. It will be done tomorrow. NPO after midnight"
--- NOTE | 2019-04-21 19:10 | NUR ---
Report given to oncoming nurse of patient's status. No s/s of acute distress noted. Side rails upx2, call light within reach.
--- NOTE | 2019-04-21 19:32 | NUR ---
RECEIVED REPORT FROM DAY NURSE. PATIENT IS RESTING COMFORTABLY IN BED. BED IS IN LOWEST POSITION AND CALL WOOD IS WITHIN REACH. WILL CONTINUE TO MONITOR PATIENT'S CARE.
[2019-04-22] VITALS: BP 103/63
[2019-04-22] MEDS: MORPHINE SULFATE 2 MG/ML SYR 1ML IV PRN ×3 (02:04→09:45)
[2019-04-22 04:00] VITALS: BP 100/60
[2019-04-22] MEDS: CEFEPIME 2 GM/NS 0.9% 100 ML 100 ML IV SCH (04:00)
[2019-04-22] MEDS: ONDANSETRON HCL INJ 2MG/ML 2ML 2 MG/ML VIAL IV PRN ×2 (06:04→13:39)
[2019-04-22 06:24] LABS: ALANINE AMINOTRANSFERASE 10 IU/L (0-55); ALBUMIN 3.1 g/dL (3.5-5.0); ALBUMIN/GLOBULIN RATIO 1.1 (0.8-2.0); ALKALINE PHOSPHATASE 71 IU/L (40-150); ANION GAP 9.8 mmol/L (8-16); BLOOD UREA NITROGEN 7 mg/dL (7-26); BUN/CREATININE RATIO 11 (6-25); CALCIUM 9.1 mg/dL (8.4-10.2); CARBON DIOXIDE 31 mmol/L (22-29); CHLORIDE 100 mmol/L (98-107); CREATININE, SERUM 0.61 mg/dL (0.57-1.11); EST GLOMERULAR FILTRATION RATE > 60 ML/MIN (60-); GLUCOSE 96 mg/dL (74-118); POTASSIUM 3.8 mmol/L (3.5-5.1); SODIUM 137 mmol/L (136-145)
--- NOTE | 2019-04-22 07:20 | NUR ---
report given to day nurse. patient is resting comfortably in bed. bed is in lowest position and call hart is within reach.
[2019-04-22 07:30] VITALS: BP 105/63
--- NOTE | 2019-04-22 07:55 | NUR ---
Taken for EGD. No s/s of acute distress noted.
[2019-04-22 08:07] VITALS: BP 105/63
[2019-04-22] MEDS ORDERED: METOCLOPRAMIDE HCL 10 MG/2ML VIAL ONE (08:59)
[2019-04-22] MEDS ORDERED: PANTOPRAZOLE 40 MG 10ML VIAL ONE (08:59)
[2019-04-22] MEDS ORDERED: PANTOPRAZOLE 40 MG 10ML VIAL IV SCH (09:15)
--- NOTE | 2019-04-22 09:38 | NUR ---
Back from procedure. AAOX3 to time, person, place. Respirations even and unlabored. O2 3L NC 94%. Instructed to use call light for assistance.
[2019-04-22] MEDS: METOPROLOL TARTRATE 25 MG TAB PO SCH (09:51)
[2019-04-22] MEDS: PRIMIDONE 50 MG TAB PO SCH (09:51)
[2019-04-22] MEDS: FAMOTIDINE 20 MG/2 ML VIAL IV SCH (09:51)
[2019-04-22] MEDS: AMLODIPINE BESYLATE 5 MG TAB PO SCH (09:51)
[2019-04-22] MEDS: ASPIRIN 81 MG ENTERIC COATED PO SCH (09:51)
--- NOTE | 2019-04-22 10:15 | NUR ---
Patient wheezing. Dr.Patel Knight aware of abnormal lungs sounds and pain. See orders
[2019-04-22] MEDS ORDERED: ALBUTEROL SULF 0.083% NEB SOLN 3 ML NEB NEB PRN (10:30)
[2019-04-22] MEDS ORDERED: HYDROCODONE/APAP 10MG-325MG TAB PO PRN (10:30)
[2019-04-22] MEDS ORDERED: carafate PO (11:24)
[2019-04-22] MEDS ORDERED: PROAIR HFA INH8.5 GM INH (11:25)
[2019-04-22] MEDS ORDERED: SUCRALFATE 1 GM TAB PO SCH (11:30)
--- NOTE | 2019-04-22 12:30 | NUR ---
Patient eating GI soft diet. Tolerating well. Denies nausea
[2019-04-22 12:31] VITALS: BP 98/62
--- NOTE | 2019-04-22 12:41 | NUR ---
ORDERS FOR HOME HEALTH SKILLED NURSE EVAL AND TREAT PT/OT EVAL AND TREAT CHOICE LETTER SIGNED FOR [facility] (IN NETWORK FOR INS) PH: [phone] FAX: [phone] SPOKE WITH RAMBO AT [facility] CONFIRMED THEY REC'D CLINICALS PT DISCHARGED HOME TODAY
[2019-04-22] MEDS ORDERED: PROPOFOL IV EMULSION 10 MG/ML 50 ML VIAL ONE (13:20)
--- NOTE | 2019-04-22 14:17 | NUR ---
Right wrist IV discontinued. No signs of infiltration noted. 2x2 gauze and tape placed. Taken via wheelchair to personal car by PCT. Accompanied by . AAOX4 to time, person, place, situation. Respirations even and unlabored. O2 3L NC on oxygen tank brought from home. Discharge instructions, rx, and all personal belongings taken with patient.
--- NOTE | 2019-04-22 15:58 | Operative Report ---
DATE OF PROCEDURE: 04/22/2019 SURGEON: Pancho Calvillo MD PROCEDURE: EGD with esophageal dilatation and biopsies. INDICATIONS FOR EGD: Upper abdominal pain, nausea, dysphagia to solids. MEDICATIONS: The patient was done under MAC, please see anesthesiologist's note. PROCEDURE IN DETAIL: With the patient in left lateral decubitus position, the flexible fiberoptic Olympus gastroscope was introduced into the esophagus under direct visualization without any difficulty. There was some patchy erythema noted in distal esophagus. Esophagus was then dilated to size 50-German Finley. The scope was then advanced with ease into the stomach traversing a small hiatal hernia. Mucosa overlying the antrum revealed some erosions without active bleeding and biopsies were obtained and sent to stain for H. pylori. An approximately 8 mm umbilicated lesion was noted in the distal antrum, suspicious for leiomyoma versus a pancreatic rest and biopsies were obtained. The pylorus was of normal contour and shape, it was intubated with ease and the scope was advanced all the way to the second portion of the duodenum. The scope was then withdrawn slowly and biopsies were obtained from the proximal second portion and the duodenal bulb to rule out sprue. The scope was then withdrawn back into the stomach and retroflexed, an approximately 8 mm submucosal nodule that was firm? carcinoid biopsies were obtained. Biopsy site bled and that site was hemoclipped x2 with excellent hemostasis. The scope was then straightened out, it was subsequently withdrawn, and the patient tolerated the procedure well. IMPRESSION: 1. Distal esophagitis. 2. Esophageal stricture dilated to size 50-German Finley. 3. Small sliding hiatal hernia. 4. Gastritis, erosive, biopsied. Biopsies sent to stain for Helicobacter pylori. 5. Approximately 8 mm submucosal nodule fundus? carcinoid, biopsies obtained. Biopsy site bled and it was hemoclipped x2 with excellent hemostasis. 6. Rule out leiomyoma, antrum biopsied. 7. Rule out sprue. PLAN: Follow up histology. We will add Carafate 1 g p.o. before meals t.i.d. and at bedtime. We will start on full liquid diet today. Pancho Calvillo MD [facility] /[id number] cc: Nelson Downing MD
[2019-04-22] MEDS ORDERED: MIDAZOLAM HCL 2 MG/2 ML VIAL ONE (19:24)
[2019-04-22] MEDS ORDERED: FENTANYL CITRATE/PF 100MCG/2 ML INJ ONE (19:24)
--- NOTE | 2019-04-23 09:03 | Discharge Summary ---
This is a 63-year-old female patient, presented with a complaint of chest and abdominal pain. ADMITTING IMPRESSION AND DIAGNOSES: Atypical chest pain, abdominal pain, lactic acidosis, chronic obstructive pulmonary disease, suspected sepsis with lactic acidosis and alcohol intoxication. HOSPITAL COURSE: The patient was admitted with above diagnoses. The patient was given IV fluids and IV antibiotics and also lactic acidosis. The patient has hypokalemia, so the patient was given potassium supplement. Blood and urine cultures were obtained, which were negative. The patient was given IV antibiotics, which was discontinued upon discharge. The patient had a cardiac stress and echocardiogram was done and myocardial perfusion study were done, which was negative. She had preserved LV function. The patient had a carotid Doppler study done. The patient had a chest CT done and the patient was found to have a 2.9 cm focal area of asymmetry in the right breast, so the patient was strongly advised to have a mammogram and ultrasound as an outpatient. The patient had a CT abdomen done and the patient was found to have a small bowel dilatation with possible intestinal ileus. The patient had a lower extremity venous Doppler study, which was also done, which was negative. EGD was done and the patient was found to have esophageal stricture and dilatation was done and the patient had gastric erosion and esophagitis. Also, post dilatation, the patient will be observed and the patient was strongly advised to stop using alcohol and continue on use of the pain medication. The patient has chronic pain and pain-seeking behavior. However, today evening, the patient will be discharged home and will follow up as an outpatient. MD SHEA Garland/[facility] /[id number]
== END 2019-04-22 14:17 | disposition home health service (06) | DRG 391 ==
LOC: ER 10:52 → ERHOLD 14:09 → MED/SURG 17:30
PROVIDERS: ADMIT Internal Medicine; ATTEND Internal Medicine
PROC: 0DB68ZX Excision of Stomach, Via Natural or Artificial Opening Endoscopic, Diagnostic (ICD-10-PCS; principal; 2019-04-22 08:21)
PROC: 0DB98ZX Excision of Duodenum, Via Natural or Artificial Opening Endoscopic, Diagnostic (ICD-10-PCS; principal; 2019-04-22 08:21)
PROC: 0D758ZZ Dilation of Esophagus, Via Natural or Artificial Opening Endoscopic (ICD-10-PCS; principal; 2019-04-22 08:21)
DX: K22.2 Esophageal obstruction (principal); J96.21 Acute and chronic respiratory failure with hypoxia; E87.2 Acidosis; J44.1 Chronic obstructive pulmonary disease with (acute) exacerbation; Z68.1 Body mass index [BMI] 19.9 or less, adult; R07.89 Other chest pain; F10.120 Alcohol abuse with intoxication, uncomplicated; R55 Syncope and collapse; I10 Essential (primary) hypertension; E78.5 Hyperlipidemia, unspecified; Y90.7 Blood alcohol level of 200-239 mg/100 ml; F31.9 Bipolar disorder, unspecified; R25.1 Tremor, unspecified; R07.2 Precordial pain; E16.2 Hypoglycemia, unspecified; Z88.5 Allergy status to narcotic agent; Z88.0 Allergy status to penicillin; F17.210 Nicotine dependence, cigarettes, uncomplicated; Z82.49 Family history of ischemic heart disease and other diseases of the circulatory system; K20.9 Esophagitis, unspecified; K44.9 Diaphragmatic hernia without obstruction or gangrene; K29.00 Acute gastritis without bleeding; K31.89 Other diseases of stomach and duodenum; R94.31 Abnormal electrocardiogram [ECG] [EKG]; N63.10 Unspecified lump in the right breast, unspecified quadrant; F32.9 Major depressive disorder, single episode, unspecified; K59.00 Constipation, unspecified; E87.6 Hypokalemia; E03.9 Hypothyroidism, unspecified; Z76.5 Malingerer [conscious simulation]; R63.6 Underweight
CPT/HCPCS: 36415; 36600; 43239; 43450; 71045; 71260; 74177; 78452; 80053; 80061; 80307; 80320; 80329; 81001; 82150; 82550; 82553; 82805; 82948; 83605; 83690; 83735; 83880; 84484; 85025; 85379; 85610; 85730; 87040; 87086; 88305; 88312; 90732; 93005; 93017; 93306; 93880; 93970; 94640; 97139; 99284; A9502; J1650; J2250; J2270; J2405; J2765; J3010; J3370; J3475; J7030; J7050; J7799; Q9967

== ENCOUNTER 2019-10-06 04:01 | Inpatient (IN) | payer SELFPAY ==
[2019-10-06] VITALS (15 sets, daily range): BP systolic 114–154; BP diastolic 71–110
[~2019-10-06] VITALS: Ht 157.5 cm; Wt 46.3 kg
[~2019-10-06 04:01] MED LIST changes: -AMLODIPINE BESYL5 MG; +AMLODIPINE BESYL5 MG PO; +PROAIR HFA INH8.5 GM INH; -SERTRALINE HCL25 MG; +SERTRALINE HCL25 MG PO; +carafate PO
[2019-10-06] MEDS ORDERED: ALBUTEROL SULF 0.083% NEB SOLN 3 ML NEB NEB STA (04:02)
[2019-10-06] MEDS ORDERED: METHYLPREDNISOLONE SOD SUCC 125 MG/2ML VIAL IV STA (04:02)
--- OUTSIDE RECORDS SUMMARY | 2019-10-06 04:03 | XMS REPORT ---
Author Author Admin, [facility] Organization Unknown Address Unknown Phone Unavailable PROBLEMS Condition Status Date Provider Notes Tremor, essential active Halley Desai GENERALIZED ANXIETY DISORDER active Halley Desai DEPRESSIVE DISORDER, MAJOR, RECURRENT EPISODE, MODERATE active Halley Desai ENCOUNTERS Date Type Provider Location Encounter Diagnosis - Ambulatory Encounter Pia Thibodeaux [facility] UNK - Ambulatory Encounter Halley Thibodeaux [facility] UNK - Ambulatory Encounter Halley Desai [facility] UNK - Ambulatory Encounter Halley Desai [facility] UNK - Ambulatory Encounter Halley Thibodeaux [facility] UNK - Ambulatory Encounter Halley Desai [facility] UNK - Ambulatory Encounter Martha Wilkerson [facility] UNK - Ambulatory Encounter Halley Desai [facility] UNK - Ambulatory Encounter Halley Wilkerson [facility] UNK - Ambulatory Encounter Fax Status [facility] UNK - Ambulatory Encounter Fax Status [facility] UNK - Ambulatory Encounter Fax Status [facility] UNK - Ambulatory Encounter Fax Status [facility] UNK - Ambulatory Encounter Fax Status [facility] UNK - Ambulatory Encounter Halley Desai [facility] UNK - Ambulatory Encounter Halley Desai [facility] UNK - Ambulatory Encounter Halley Desai [facility] UNK - Ambulatory Encounter Halley Kemp [facility] Tremor, essential - Ambulatory Encounter Halley Desai [facility] UNK - Ambulatory Encounter Halley Desai [facility] UNK - Ambulatory Encounter Halley Desai [facility] UNK - Ambulatory Encounter Halley Melendez [facility] DEPRESSIVE DISORDER, MAJOR, RECURRENT EPISODE, MODERATEGENERALIZED ANXIETY DISORDER - Ambulatory Encounter Pia Thibodeaux [facility] UNK - Ambulatory Encounter Francisca Shaw [facility] UNK VITAL SIGNS No Information Available Allergies No Known Allergy Information REASON FOR REFERRAL Start Date - End Date Service - Neurology - External RESULTS No Information Available HISTORY OF IMMUNIZATIONS No Information Available HISTORY OF MEDICATION USE Medication Instructions Dates Provider Comments ZOLOFT 25 MG ORAL TABLET Take 1 tablet By Mouth [facility] Halley Desai CYMBALTA 30 MG ORAL CAPSULE DELAYED RELEASE PARTICLES Take 1 capsule By Mouth QA - Halley Desai MIRTAZAPINE 45 MG ORAL TABLET Take 1 tablet By Mouth [facility] Halley Desai LEVALBUTEROL TARTRATE AEROSOL Halley Desai [...] TABLET Take 1 tablet By Mouth Q - Halley Desai SOCIAL HISTORY Date Observation Value Provider drug use, illicit Never Halley Desai " alcohol use Previously Halley Desai " smoking status current some day smoker Halley Desai " social history E&M has grown son, daughter, grandkids, "always checking up on me". unknown about siblings, was raised in foster care Not homeless. lives in [place], uses medical transportation Lives in apartment by herself. Not employed. 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 Halley Deasi " social history reviewed E&M reviewed today Halley Desai drug use, illicit Never Halley Desai " alcohol use Previously Halley Desai " smoking status current some day smoker Halley Desai " social history E&M has grown son, daughter, grandkids, "always checking up on me". unknown about siblings, was raised in foster care Not homeless. lives in [place], uses medical transportation Lives in apartment by [...] in foster care Not homeless. lives in [place], uses medical transportation Lives in apartment by herself. Not employed. 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 Halley Desai " social history reviewed E&M reviewed today Halley Desai drug use, illicit Never Halley Desai " alcohol use Previously Halley Desai " smoking status current some day smoker Halley Desai " social history reviewed E&M reviewed today Halley Desai " social history E&M has grown son, daughter, grandkids, "always checking up on me". unknown about siblings, was raised in foster care Not homeless. lives in [place], uses medical transportation Lives in apartment by herself. Not employed. 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 Halley Desai " family support has grown son, daughter, grandkids, "always checking up on me". unknown about siblings, was raised in foster care. of heart attack about 10 yrs ago. Halley Desai " patient considered to be homeless No Halley Desai " home/family situation, assessment lives in [place], uses medical transportation Lives in apartment by [...] stated age, neat, [facility], judgment fair Halley Desai [...] stated age, neat, looks older than age [facility] mental status assessment, motor activity slowing, tremors [...] mood (mental status exam) sad, worried Halley Desai " mental status assessment, judgment [...] disturbance, restlessness, many physical complaints, panic attacks [facility] MEDICAL EQUIPMENT No Information Available FAMILY HISTORY No Information Available INSURANCE PROVIDERS No Information Available ADVANCE DIRECTIVES No Information Available TREATMENT PLAN Date Name - Est Patient Exp Problem - 79732 Est Patient Exp Problem - 49238 Sole Stainer Est Patient Exp Problem - 27360 Diagnostic evaluation with medical - 79982 HISTORY OF PROCEDURES Procedure Date Procedure Name Provider Procedure Notes Status Diagnostic evaluation with medical - 59673 Halley Desai completed GOALS No Information Available HEALTH CONCERNS No Information Available
--- OUTSIDE RECORDS SUMMARY | 2019-10-06 04:03 | XMS REPORT ---
Author Author Admin, [place] Organization Unknown Address Unknown Phone Unavailable PROBLEMS Condition Status Date Provider Notes Tremor, essential active Halley Desai GENERALIZED ANXIETY DISORDER active Halley Desai DEPRESSIVE DISORDER, MAJOR, RECURRENT EPISODE, MODERATE active Halley Desai ENCOUNTERS Date Type Provider Location Encounter Diagnosis - Ambulatory Encounter Halley Desai [facility] UNK - Ambulatory Encounter Pia Thibodeaux [facility] UNK - Ambulatory Encounter Halley Thibodeaux [facility] UNK - Ambulatory Encounter Halley Desai [facility] UNK - Ambulatory Encounter Halley Desai [facility] UNK - Ambulatory Encounter Halley Thibodeaux [facility] UNK - Ambulatory Encounter Halley Desai [facility] UNK - Ambulatory Encounter Martha Wilkerson [facility] UNK - Ambulatory Encounter Halley Desai [facility] UNK - Ambulatory Encounter Halley Wilkerson [facility] UNK - Ambulatory Encounter Fax Status [facility] UNK - Ambulatory Encounter Fax Status [facility] UNK - Ambulatory Encounter Fax Status [facility] UNK - Ambulatory Encounter Fax Status [facility] UNK - Ambulatory Encounter Fax Status [facility] UNK - Ambulatory Encounter Halley Desai [facility] UNK - Ambulatory Encounter Halley Desai [facility] UNK - Ambulatory Encounter Halley Desai [facility] UNK - Ambulatory Encounter Halley Kemp [facility] Tremor, essential - [facility] Halley Desai [facility] UNK - Ambulatory Encounter Halley Desai [facility] UNK - Ambulatory Encounter Halley Melendez [facility] DEPRESSIVE DISORDER, MAJOR, RECURRENT EPISODE, MODERATEGENERALIZED ANXIETY DISORDER - Ambulatory Encounter Pia Thibodeaux [facility] UNK - Ambulatory Encounter Francisca Shaw [facility] UNK VITAL SIGNS [...] TABLET Take 1 tablet By Mouth QHS Halley Desai LEVALBUTEROL TARTRATE AEROSOL Halley Desai [...] HOUR Take 1 tablet By Mouth QA - Halley Desai TRAZODONE HCL 150 MG [...] in foster care Not homeless. lives in [place], uses medical transportation Lives in apartment by herself. Not employed. 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 Halley [...] in foster care Not homeless. lives in [place], uses medical transportation Lives in apartment by herself. Not employed. 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 Halley [...] in foster care Not homeless. lives in [place], uses medical transportation Lives in apartment by herself. Not employed. 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 Halley [...] in foster care Not homeless. lives in [place], uses medical transportation Lives in apartment by herself. Not employed. 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 Halley Desai " family support has grown son, daughter, grandkids, "always checking up on me". unknown about siblings, was raised in foster care. of heart attack about 10 yrs ago. Halley Desai " patient considered to be homeless No Halley Desai " home/family situation, assessment lives in [place], uses medical transportation Lives in apartment by [...] stated age, neat, looks older than age [facility] mental status assessment, judgment fair Halleychrist Desai " insight (mental status exam) fair Halley Desai " Mental Status Exam: intelligence adequate fund of information, intact memory processes, oriented to person, oriented to place, oriented to time, oriented to situation, oriented to reality Halley Desai " hallucinations none Halley Desai " thought content (mental status exam) (E&M) lucid Halley Desai " mental status assessment, process able to abstract, goal-directed, logical Halleychrist Desai " mental status assessment, sensorium alert, [...] stated age, neat, looks [facility] than age [facility] assessment, motor activity slowing, tremors Halley Desai " mental status assessment, judgment fair Halleychrist Desai " insight (mental status exam) fair [...] disturbance, restlessness, many physical complaints, panic attacks Halley Desai MEDICAL EQUIPMENT No Information Available FAMILY HISTORY No Information Available INSURANCE PROVIDERS No Information Available ADVANCE DIRECTIVES No Information Available TREATMENT PLAN Date Name - Est Patient Exp Problem - 23067 Est Patient Exp Problem - 56066 Financial Planner Est Patient Exp Problem - 93633 Diagnostic evaluation with medical - 91267 HISTORY OF PROCEDURES Procedure Date Procedure Name Provider Procedure Notes Status Diagnostic evaluation with medical - 26565 Halley Desai completed GOALS No Information Available HEALTH CONCERNS No Information Available
--- OUTSIDE RECORDS SUMMARY | 2019-10-06 04:03 | XMS REPORT ---
Author Author Admin, [place] Organization Unknown Address Unknown Phone Unavailable PROBLEMS Condition Status Date Provider Notes Tremor, essential active Halley Desai GENERALIZED ANXIETY DISORDER active Halley Desai DEPRESSIVE DISORDER, MAJOR, RECURRENT EPISODE, MODERATE active Halley Desai ENCOUNTERS Date Type Provider Location Encounter Diagnosis - Ambulatory Encounter Pia Thibodeaux [facility] UNK - Ambulatory Encounter Halley Thbiodeaux [facility] UNK - Ambulatory Encounter Pia Thibodeaux [facility] UNK - Ambulatory Encounter Halley Thibodeaux [facility] UNK - Ambulatory Encounter Halley Desai [facility] UNK - Ambulatory Encounter Halley Desai [facility] UNK - Ambulatory Encounter Halley Thibodeaux [facility] UNK - Ambulatory Encounter Halley Desai [facility] UNK - Ambulatory Encounter Martha Wilkerson [facility] UNK - Ambulatory Encounter Halley Desai [facility] UNK - Ambulatory Encounter Halley Wilkerson [facility] UNK - Ambulatory Encounter Fax Status [facility] UNK - Ambulatory Encounter Fax Status [facility] UNK - Ambulatory Encounter Fax Status [facility] UNK - Ambulatory Encounter Fax Status [facility] UNK - Ambulatory Encounter Fax Status [facility] UNK - Ambulatory Encounter Halley Desai [facility] UNK - Ambulatory Encounter Halley Desai [facility] UNK - Ambulatory Encounter Halley Desai [facility] UNK - Ambulatory Encounter Halley Kemp [facility] Tremor, essential - Amb[facility] Halley Desai [facility] UNK - Ambulatory Encounter Halley Desai [facility] UNK - Ambulatory Encounter Halley Melendez [facility] DEPRESSIVE DISORDER, MAJOR, RECURRENT EPISODE, MODERATEGENERALIZED ANXIETY DISORDER - Ambulatory Encounter Pia Thibodeaux [place] [facility] UNK - Ambulatory Encounter Francisca Shaw [facility] UNK VITAL SIGNS No Information Available Allergies No Known Allergy Information REASON FOR REFERRAL Start Date - End Date Service - Neurology - External RESULTS No Information Available HISTORY OF IMMUNIZATIONS No Information Available HISTORY OF MEDICATION USE Medication Instructions Dates Provider Comments ZOLOFT 25 MG ORAL TABLET Take 1 tablet By Mouth QAM Halley Desai CYMBALTA 30 MG ORAL CAPSULE DELAYED RELEASE PARTICLES Take 1 capsule By Mouth QAM - Halley Desai MIRTAZAPINE 45 MG ORAL TABLET Take 1 tablet By Mouth [facility] Halley Desai LEVALBUTEROL TARTRATE AEROSOL Halley Desai [...] ORAL TABLET Take 1 tablet By Mouth [facility] - Halley Desai SOCIAL HISTORY Date Observation Value Provider drug use, illicit Never Halley Desai " alcohol use Previously Halley Desai " smoking status current some day smoker Halley Desai " social history E&M has grown son, daughter, grandkids, "always checking up on me". unknown about siblings, was raised in foster care Not homeless. lives in [place], uses medical transportation Lives in apartment by herself. Not employed. 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 Halley [...] in foster care Not homeless. lives in [place], uses medical transportation Lives in apartment by herself. Not employed. 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 Halley [...] in foster care Not homeless. lives in [place], uses medical transportation Lives in apartment by herself. Not employed. 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 Halley [...] in foster care Not homeless. lives in [place], uses medical transportation Lives in apartment by herself. Not employed. 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 Halley Desai " family support has grown son, daughter, grandkids, "always checking up on me". unknown about siblings, was raised in foster care. of heart attack about 10 yrs ago. Halley Desai " patient considered to be homeless No Halley Desai " home/family situation, assessment lives in [place], uses medical transportation Lives in apartment by [...] content (mental status exam) (E&M) lucid Halley Desai" mental status assessment, process able to abstract, [...] neat, looks older than age Halley Desai mental status assessment, judgment fair Halley Desai [...] neat, looks older than age Halley Desai mental status assessment, motor activity slowing, tremors [...] Name - Est Patient Exp Problem - 61613 Est Patient Exp Problem - 01680 [employer] Est Patient Exp Problem - 45936 Diagnostic evaluation with medical - 48438 HISTORY OF PROCEDURES Procedure Date Procedure Name Provider Procedure Notes Status Diagnostic evaluation with medical - 37196 Halley Desai completed GOALS No Information Available HEALTH CONCERNS No Information Available
--- OUTSIDE RECORDS SUMMARY | 2019-10-06 04:04 | XMS REPORT ---
Author Author Admin, [place] Organization Unknown Address Unknown Phone Unavailable PROBLEMS Condition Status Date Provider Notes Tremor, essential active Halley Desai GENERALIZED ANXIETY DISORDER active Halley Desai DEPRESSIVE DISORDER, MAJOR, RECURRENT EPISODE, MODERATE active Halley Desai ENCOUNTERS Date Type Provider Location Encounter Diagnosis - Ambulatory Encounter Halley Desai [facility] UNK - Ambulatory Encounter Halley Whiteheada Carlos Eduardo [facility] UNK - Ambulatory Encounter Pia Carlos Eduardo [facility] UNK - Ambulatory Encounter aHlley Desai Pia Carlos Eduardo [facility] UNK - Ambulatory Encounter Pia Carlos Eduardo [facility] UNK - Ambulatory Encounter Halley Desai Pia Carlos Eduardo [facility] UNK - Ambulatory Encounter Halley Desai [facility] UNK - Ambulatory Encounter Halley Desai [facility] UNK - Ambulatory Encounter Halley Desai Pia Carlos Eduardo [facility] UNK - Ambulatory Encounter Halley Desai [facility] UNK - Ambulatory Encounter Martha Wilkerson [facility] [employer] UNK - Ambulatory Encounter Halley Desai [facility] UNK - Ambulatory Encounter Halley Wilkerson [facility] UNK - Ambulatory [facility] - [facility] - [facility] - Ambulatory Encounter Halley Desai [facility] UNK - Ambulatory Encounter Halley Desai [facility] UNK - Ambulatory Encounter Halley Desai [facility] UNK - Ambulatory Encounter Halley Kemp [facility] Tremor, essential - Ambulatory Encounter Halley Desai [facility] UNK - Ambulatory Encounter Halley Desai [facility] UNK - Ambulatory Encounter Halley Desai [facility] UNK - Ambulatory Encounter Halley Melendez [facility] DEPRESSIVE DISORDER, MAJOR, RECURRENT EPISODE, MODERATEGENERALIZED ANXIETY DISORDER - Ambulatory Encounter Pia Thibodeaux [facility] [place] [employer] UNK - Ambulatory Encounter Francisca Shaw [facility] UNK VITAL SIGNS Date Observation Value Provider method used to obtain blood pressure automatic Pia Carlos Eduardo " Blood Pressure Position 01 sitting Piaosman Thibodeaux " blood pressure, site #1 right arm Piaosman Thibodeaux " blood pressure, diastolic 72 mm[Hg] Pia Carlos Eduardo " blood pressure, systolic 114 mm[Hg] Pia Carlos Eduardo " pulse rate E&M 81 /min Pia Carlos Eduardo " weight E&M 115.40 lbs. Piaosman Thibodeaux " weight in kilograms E&M 52.45 kg Piaosman Thibodeaux " height E&M 60 [in_i] Pia Carlos Eduardo " height in centimeters E&M 152.40 cm Pia Thibodeaux method used to obtain blood pressure automatic Pia Carlos Eduardo " Blood Pressure Position 01 sitting Piaosman Thibodeaux " blood pressure, site #1 left arm Piaosman Thibodeaux " blood pressure, diastolic 76 mm[Hg] Pia Carlos Eduardo " blood pressure, systolic 131 mm[Hg] Pia Carlos Eduardo " pulse rate E&M 114 /min Pia Carlos Eduardo " weight E&M 107.20 lbs. Piaosman Thibodeaux " weight in kilograms E&M 48.73 kg Piaosman Thibodeaux " height in centimeters E&M 152.40 cm Pia Carlos Eduardo " height E&M 60 [in_i] Piaosman Thibodeaux method used to obtain blood pressure automatic Piaosman Thibodeaux " Blood Pressure Position 01 sitting Piaosman Thibodeaux " blood pressure, site #1 left arm Piaosman Thibodeaux " blood pressure, diastolic 61 mm[Hg] Pia Carlos Eduardo " blood pressure, systolic 117 mm[Hg] Pia Carlos Eduardo " pulse rate E&M 89 /min Pia Carlos Eduardo " weight E&M 106 lbs. Piaosman Thibodeaux " weight in kilograms E&M 48.18 kg Piaosman Thibodeaux " height in centimeters E&M 152.40 cm Pia Carlos Eduardo " height E&M 60 [in_i] Pia Carlos Eduardo method used to obtain blood pressure automatic Lisa Melendez " Blood Pressure Position 01 sitting Lisa Melendez " blood pressure, site #1 left arm Lisa Melendez " pulse rate E&M 89 /min Lisa Melendez " blood pressure, diastolic 74 mm[Hg] Lisa Melendez " blood pressure, systolic 115 mm[Hg] Lisa Melendez " weight E&M 99.50 lbs. Lisa Melendez " weight in kilograms E&M 45.23 kg Lisa Melendez " height E&M 60 [in_i] Lisa Melendez " height in centimeters E&M 152.40 cm Lisaalexys Cardonaran pulse rate E&M 108 /min Lisa Melendez " method used to obtain blood pressure automatic Lisa Melendez " Blood Pressure Position 01 sitting Lisaalexys Cardonaran " blood pressure, site #1 left arm Lisa Melendez " blood pressure, diastolic 79 mm[Hg] Lisaalexys Cardonaran " blood pressure, systolic 118 mm[Hg] Lisaalexys Cardonaran " weight E&M 101.25 lbs. Lisaalexys Cardonaran " weight in kilograms E&M 46.02 kg Lisaalexys Melendez " height E&M 60 [in_i] Lisaalexys Melendez " height in centimeters E&M 152.40 cm Lisaalexys Cardonaran Allergies No Known Allergy Information REASON FOR [...] By Mouth QAM - Halley Desai MIRTAZAPINE 30 MG ORAL TABLET Take 1 tablet By [...] BID As Needed for anxiety Halley Desai WELLBUTRIN XL 150 MG ORAL TABLET EXTENDED RELEASE 24 HOUR Take 1 tablet By Mouth [facility] - Halley Desai TRAZODONE HCL 150 MG ORAL TABLET Take 1 tablet By Mouth [facility] - Halley Desai SOCIAL HISTORY Date Observation Value Provider drug use, illicit Never Halley Desai " alcohol use Previously Halley Desai " smoking status current some day smoker Halley Desai " social history E&M has grown son, daughter, grandkids, "always checking up on me". unknown about siblings, was raised in foster care Not homeless. lives in [place], uses medical transportation Lives in apartment by [...] in foster care Not homeless. lives in [place], uses medical transportation Lives in apartment by [...] in foster care Not homeless. lives in [place], uses medical transportation Lives in apartment by [...] in foster care Not homeless. lives in [place], uses medical transportation Lives in apartment by herself. Not employed. 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 Halley [...] in foster care Not homeless. lives in [place], uses medical transportation Lives in apartment by herself. Not employed. 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 Halley Desai " family support has grown son, daughter, grandkids, "always checking up on me". unknown about siblings, was raised in foster care. of heart attack about 10 yrs ago. Halley Desai " patient considered to be homeless No Halley Desai " home/family situation, assessment lives in [place], uses medical transportation Lives in apartment by [...] Halley Desai" mood (mental status exam) pleasant, anxious Halley Desai " mental status assessment, speech activity normal flow, normal pace, normal pressure, normal rate, normal tone, normal volume, spontaneous Halley Desai " mental status assessment, motor activity slowing, tremors, stooped, uses rollator Halley Desai " behavior (mental status exam) appropriate, candid, cooperative, good eye contact, polite, responsive Halley Desai " mental appearance (mental status exam) adequate hygiene, appropriate dress, looks like stated age, neat, looks older than age, has portable O2 with her Halley Desai mental status assessment, judgment fair [...] stated age, neat, looks older than age [facility] mental status assessment, motor activity slowing, tremors [...] [facility] mood (mental status exam) sad, worried Halley [...] Name - Est Patient Exp Problem - 85400 Est Patient Exp Problem - 44870 Est Patient Exp Problem - 88345 [facility] [place] [employer] Est Patient Exp Problem - 78024 Diagnostic evaluation with medical - 82073 HISTORY OF PROCEDURES Procedure Date Procedure Name Provider Procedure Notes Status Diagnostic evaluation with medical - 61699 Halley Desai completed GOALS No Information Available HEALTH CONCERNS No Information Available
--- OUTSIDE RECORDS SUMMARY | 2019-10-06 04:04 | XMS REPORT ---
Author Author Admin, [place] Organization Unknown Address Unknown Phone Unavailable PROBLEMS Condition Status Date Provider Notes Tremor, essential active Halley Desai GENERALIZED ANXIETY DISORDER active Halley Desai DEPRESSIVE DISORDER, MAJOR, RECURRENT EPISODE, MODERATE active Halley Dseai ENCOUNTERS Date Type Provider Location Encounter Diagnosis - Ambulatory Encounter Halley Desai [facility] UNK - Ambulatory Encounter Halley Whiteheada Carlos Eduardo [facility] UNK - Ambulatory Encounter Pia Carlos Eduardo [facility] UNK - Ambulatory Encounter Halley Desai Pia Carlos Eduardo [facility] UNK - Ambulatory Encounter Pia Carlos Eduardo [facility] UNK - Ambulatory Encounter Halley Desai Pia Carlos Eduardo [facility] UNK - Ambulatory Encounter Halley Desai [facility] UNK - Ambulatory Encounter Halley Desai [facility] UNK - Ambulatory Encounter Halley Desai Pia Carlos Eduardo [facility] UNK - Ambulatory Encounter Halley Desai [facility] UNK - Ambulatory Encounter aMrtha Wilkerson [place] [employer] UNK - Ambulatory Encounter Halley Desai [facility] UNK - Ambulatory Encounter Halley Wilkerson [facility] UNK - Ambulatory [facility]counter [facility] - [facility] - Ambulatory Encounter [facility] - Ambulatory Encounter [facility] - Ambulatory Encounter [facility] UN[facility] - Ambulatory Encounter Halley Desai [facility] UNK - Ambulatory Encounter Halley Desai [facility] UNK - Ambulatory Encounter Halley Desai [facility] UNK - Ambulatory Encounter Halley Kemp [facility] Tremor, essential - Ambulatory Encounter Halley Desai [facility] UNK - Ambulatory Encounter Halley Desai [facility] UNK - Ambulatory Encounter Halley Desai [facility] UNK - Ambulatory Encounter Halley Melendez [facility] DEPRESSIVE DISORDER, MAJOR, RECURRENT EPISODE, MODERATEGENERALIZED ANXIETY DISORDER - Ambulatory Encounter Pia Thibodeaux [place] [employer] UNK - Ambulatory Encounter Francisca Shaw [facility] Contact Center UNK VITAL SIGNS Date [...] 24 HOUR Take 1 tablet By Mouth [facility] - Halley Desai TRAZODONE HCL 150 MG ORAL TABLET Take 1 tablet By Mouth [facility] - Halley Desai SOCIAL HISTORY Date Observation Value Provider drug use, illicit Never Halley Desai " alcohol use Previously Halley Desai " smoking status current some day smoker Halley Desai " social history E&M has grown son, daughter, grandkids, "always checking up on me". unknown about siblings, was raised in foster care Not homeless. lives in [place], uses medical transportation Lives in apartment by [...] in foster care Not homeless. lives in [place], uses medical transportation Lives in apartment by [...] in foster care Not homeless. lives in [place], uses medical transportation Lives in apartment by [...] in foster care Not homeless. lives in [place], uses medical transportation Lives in apartment by herself. Not employed. 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 Halley [...] in foster care Not homeless. lives in [place], uses medical transportation Lives in apartment by herself. Not employed. 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 Halley Desai " family support has grown son, daughter, grandkids, "always checking up on me". unknown about siblings, was raised in foster care. of heart attack about 10 yrs ago. Halley Desai " patient considered to be homeless No Halley Desai " home/family situation, assessment lives in [place], uses medical transportation Lives in apartment by [...] age, neat, looks older than age [facility] mental status assessment, motor activity slowing, tremors [...] neat, looks [facility] than age [facility] mood (mental status exam) sad, worried Halley [...] Name - Est Patient Exp Problem - 63162 Est Patient Exp Problem - 17052 Est Patient Exp Problem - 35492 [employer] Est Patient Exp Problem - 70824 Diagnostic evaluation with medical - 12172 HISTORY OF PROCEDURES Procedure Date Procedure Name Provider Procedure Notes Status Diagnostic evaluation with medical - 55258 Halley Desai completed GOALS No Information Available HEALTH CONCERNS No Information Available
[2019-10-06] MEDS ORDERED: LORAZEPAM INJ 2 MG/ML VIAL IV ONE (04:45)
[2019-10-06] MEDS ORDERED: ASPIRIN 81 MG CHEW TAB PO ONE (05:00)
[2019-10-06 05:01] LABS: BASOPHILS # (AUTO) 0.1 (0.0-0.1); BASOPHILS % 0.5 % (0.0-1.0); EOSINOPHILS # (AUTO) 0.2 (0.0-0.4); EOSINOPHILS % 1.7 % (0.0-6.0); HEMATOCRIT 42.4 % (34.2-44.1); HEMOGLOBIN 14.7 g/dL (12.0-16.0); LYMPHOCYTES # (AUTO) 2.2 (1.0-3.2); LYMPHOCYTES % 23.4 % (18.0-39.1); MEAN CORPUSCULAR HEMOGLOBIN 30.8 pg (28-32); MEAN CORPUSCULAR HGB CONC 34.7 g/dL (31-35); MEAN CORPUSCULAR VOLUME 88.9 fL (81-99); MONOCYTES # (AUTO) 1.1 (0.2-0.8); MONOCYTES % 11.5 % (4.4-11.3); NEUTROPHILS # (AUTO) 5.7 (2.1-6.9); NEUTROPHILS % 62.6 % (38.7-80.0); PLATELET COUNT 311 x10e3/uL (140-360); RED BLOOD COUNT 4.77 x10e6/uL (3.6-5.1); RED CELL DISTRIBUTION WIDTH 13.4 % (11.7-14.4)
--- NOTE | 2019-10-06 05:08 | Diagnostic Imaging Report ---
EXAMINATION: CHEST SINGLE (PORTABLE) COMPARISON: CT chest 04/19/2019 INDICATION: Shortness of breath, abdominal pain ^ERMD ORDER ^Y DISCUSSION: Frontal view of the chest obtained at 0442 hours. HEART AND MEDIASTINUM: The cardiomediastinal silhouette is unremarkable. LINES: None. LUNGS: The lungs are diffusely hyperinflated consistent with COPD/emphysema. Calcified granuloma in the left lower lobe measures 8 mm. No pneumonia or pulmonary edema. PLEURA: There is blunting of the right lateral costophrenic angle. Left ostiomeatal is sharp. BONES AND SOFT TISSUES: No focal osseous lesion. The soft tissues are normal. IMPRESSION: Pulmonary hyperinflation suggestive of COPD/emphysema. No acute cardiopulmonary process. Signed by: Dr. Sheila Roa MD on 10/06/2019 5:04 AM
[2019-10-06] MEDS: SODIUM CHLORIDE 0.9% 1000ML 1,000 ML IV SCH ×2 (05:15→14:37)
[2019-10-06 05:22] LABS: ALANINE AMINOTRANSFERASE 12 IU/L (0-55); ALBUMIN 4.5 g/dL (3.5-5.0); ALBUMIN/GLOBULIN RATIO 1.6 (0.8-2.0); ALKALINE PHOSPHATASE 94 IU/L (40-150); ANION GAP 22.5 mmol/L (8-16); BLOOD UREA NITROGEN 16 mg/dL (7-26); BUN/CREATININE RATIO 25 (6-25); CARBON DIOXIDE 29 mmol/L (22-29); CHLORIDE 94 mmol/L (98-107); CREATINE KINASE 83 IU/L (29-168); CREATININE, SERUM 0.64 mg/dL (0.57-1.11); EST GLOMERULAR FILTRATION RATE > 60 ML/MIN (60-); GLUCOSE 82 mg/dL (74-118); POTASSIUM 3.5 mmol/L (3.5-5.1); SODIUM 142 mmol/L (136-145)
--- NOTE | 2019-10-06 05:26 | NUR ---
ER MD AND PRIMARY NURSE NOTIFIED AND AWARE OF CRITICAL LAB VALUE, LACTIC ACID 3.5.
[2019-10-06] MEDS ORDERED: ROBAXIN-750750 MG PO (05:33)
[2019-10-06] MEDS ORDERED: METOCLOPRAMIDE10 MG PO (05:33)
[2019-10-06] MEDS ORDERED: BUPROPION HCL150 M2 PO (05:33)
[2019-10-06] MEDS ORDERED: DIAZEPAM5 MG PO (05:33)
[2019-10-06] MEDS ORDERED: SUCRALFATE1 GM PO (05:34)
[2019-10-06] MEDS ORDERED: MIRTAZAPINE15 MG PO (05:34)
[2019-10-06] MEDS ORDERED: ANORO ELLIPTA1 EACH (05:36)
[2019-10-06] MEDS ORDERED: CRESTOR10 MG PO (05:36)
[2019-10-06] MEDS ORDERED: FROVA2.5 MG PO (05:39)
[2019-10-06] MEDS ORDERED: LEVOFLOXACIN 750MG/D5W 150ML 150 ML IV SCH (05:45)
[2019-10-06] MEDS ORDERED: LEVOFLOXACIN 750MG/D5W 150ML 150 ML IV ONE (05:47)
[2019-10-06] MEDS ORDERED: ACETAMINOPHEN 325 MG TAB PO PRN (06:00)
[2019-10-06] MEDS ORDERED: LORAZEPAM INJ 2 MG/ML VIAL IV PRN (06:00)
[2019-10-06 07:08] LABS: B-TYPE NATRIURETIC PEPTIDE2 26.5 pg/mL (0-100)
--- NOTE | 2019-10-06 09:18 | NUR ---
GAVE PACKET OF INFORMATION WITH [facility] [employer] FOR ASSISTANCE WITH LOW TO NO INCOME TO PATIENT. RESOURCES THAT PATIENT MAY BE ABLE TO FOLLOW UP UPON DISCHARGE. PT EDUCATED ON EACH RESOURCE AND UNDERSTANDING HOW TO FOLLOW UP TO SEE IF QUALIFIED FOR EACH RESOURCE. STATES BELIEVES HOME O2 IS THROUGH [facility]
[2019-10-06] MEDS: OSELTAMIVIR PHOSPHATE 75 MG CAP PO SCH ×2 (10:00→21:20)
[2019-10-06] MEDS ORDERED: VANCOMYCIN 1GM/NS 250 ML 250 ML IV ONE (10:00)
[2019-10-06] MEDS ORDERED: DIAZEPAM 5 MG TAB PO PRN (10:30)
--- NOTE | 2019-10-06 11:03 | Consultation ---
DATE OF CONSULTATION: 10/06/2019 Critical Care Consultation REASON FOR CONSULT: Shortness of breath. HISTORY OF PRESENT ILLNESS: Ms. Rhoades is a 64-year-old female known to me from previous admission. She has history of COPD. She still smokes, came in with shortness of breath and coughing, turned out to be flu positive A and B. She denies any chest pain, nausea, vomiting. REVIEW OF SYSTEMS: GENERAL: Denies any fever or chills. HEAD: Denies any head trauma. CVS: Denies any chest pain. ABDOMEN: Mild abdominal discomfort. The rest of the review of systems are negative except as in HPI. PAST MEDICAL HISTORY: COPD, hypertension, depression, chronic back pain. FAMILY AND SOCIAL HISTORY: Still smokes; smoker for 55 years. PHYSICAL EXAMINATION: VITAL SIGNS: Temperature 98.6, pulse of 120, blood pressure 144/85. CHEST: Decreased air entry. HEART: S1, S2 audible. ABDOMEN: Soft. EXTREMITIES: No pedal edema. NEUROLOGIC: Awake and alert. LABORATORY DATA: Reviewed. Chest x-ray reviewed showing emphysema. No pneumonia. ASSESSMENT/PLAN: 1. Influenza. 2. Chronic obstructive pulmonary disease exacerbation. 3. Hypertension. PLAN: We will reduce the dose of steroids. Start Tamiflu. Start the patient on Rocephin and azithromycin. Critical care time spent 45 minutes. MD ASHLEY Patel/[place] /[id number]
[2019-10-06] MEDS: SUCRALFATE 1 GM TAB PO SCH ×3 (11:30→21:19)
[2019-10-06] MEDS: METHOCARBAMOL 500 MG TAB PO SCH ×2 (12:00→21:20)
[2019-10-06] MEDS ORDERED: METHYLPREDNISOLONE SOD SUCC 40 MG/ML VIAL 1ML IV SCH (12:00)
[2019-10-06] MEDS: METOCLOPRAMIDE HCL 10 MG TAB PO SCH ×2 (12:00→18:12)
--- NOTE | 2019-10-06 13:13 | History and Physical ---
CHIEF COMPLAINT: She is a 64-year-old female patient with severe COPD, alcoholism, chronic neck pain, anxiety, and depression, presented to the emergency room with a complaint of fever and weakness. HISTORY OF PRESENT ILLNESS: Ms. Jf Olea is a 64-year-old female patient, presented to the emergency room with a complaint of cough, fever, shortness of breath, headache, body ache, and generalized pain. The patient was evaluated in the emergency room and the patient had a high lactic acid level and she has influenza test also A and B both positive and the patient was admitted for further care as the patient has COPD exacerbation. PAST MEDICAL HISTORY: Significant for COPD, hypertension, hyperlipidemia, anxiety, depression, chronic pain, and alcoholism. MEDICATIONS: See from the list. ALLERGIES: THE PATIENT IS ALLERGIC TO PENICILLIN AND TRAMADOL. SOCIAL HISTORY: Smoker and alcoholic. FAMILY HISTORY: Hypertension. REVIEW OF SYSTEMS: As per history of present illness. PHYSICAL EXAMINATION: GENERAL: She is a middle-aged female patient, lying in the bed. VITAL SIGNS: Temperature 98.6, pulse rate 128, blood pressure 144/85, and respiratory rate 18. LUNGS: Bilateral equal air entry and basal rales present. HEART: S1 and S2. Regular. Systolic murmur present. ABDOMEN: Soft. Bowel sounds present. NEUROLOGICAL: No focal neurological deficit. LABORATORY EXAMINATION: The patient has influenza A and influenza B positive serology. White blood count is 9.9, but the patient's lactic acid level is high at 3.5. ADMITTING IMPRESSION/DIAGNOSES: 1. Influenza A and influenza B with pneumonia. 2. Chronic obstructive pulmonary disease exacerbation. 3. Sepsis. 4. Hypertension. The patient was admitted with above diagnoses. We will treat the patient with antibiotics, Tamiflu and Solu-Medrol and we will obtain Pulmonary and ID consultation. The patient will be monitored in the ICU. MD SHEA Garland/[place] /[id number]
[2019-10-06] MEDS: HYDROCODONE/APAP 10MG-325MG TAB PO SCH ×2 (14:00→22:00)
[2019-10-06 14:39] LABS: ABG HCO3 34 mmol/L (23-28); ABG PCO2 42 mmHg (41-51); ABG PH 7.52 (7.31-7.41)
--- NOTE | 2019-10-06 14:58 | Consultation ---
DATE OF CONSULTATION: REASON FOR CONSULTATION: Sepsis. Influenza A, influenza B. HISTORY OF PRESENT ILLNESS: This patient who is a very pleasant 64-year-old white female, who has history of COPD, comes in with a 3-4 days of not feeling well, shortness of breath, and chills. She also has some nausea and abdominal discomfort, came to the emergency room. Her influenza A and B came back positive. Because of shortness of breath, she is admitted to intensive care unit. PAST MEDICAL HISTORY: The patient has history of COPD, hypertension, hyperlipidemia, anxiety, chronic pain, depression, and alcoholism. PAST SURGICAL HISTORY: As above. ALLERGIES: NKA. SOCIAL HISTORY: She does smoke still, unfortunately still drink. LABORATORY DATA: Her blood culture is still pending. Her white count 9.1, her hemoglobin 14, and platelets 111. Sodium 142, potassium 3.5, and creatinine 0.64. Lactic acid 3.5. Her influenza A and B were negative. PHYSICAL EXAMINATION: GENERAL: She is currently alert, oriented, does not seem to be in acute distress. VITAL SIGNS: Stable, currently afebrile. HEENT: She is not icteric. NECK: Supple. CHEST: Few crackles. HEART: S1, S2. No S3, S4, or murmur. ABDOMEN: Soft. IMPRESSION: Acute exacerbation of chronic obstructive pulmonary disease, influenza acute and concerned about superimposed bacterial infection. We will put the patient on Tamiflu 75 mg p.o. b.i.d. seven days. Supportive care. We will put the patient on Rocephin and azithromycin. Discussed with the medical team. We will follow. MD CYNDIE Sharma/[facility] /[id number]
[2019-10-06 15:13] LABS: CREATINE KINASE 145 IU/L (29-168)
[2019-10-06] MEDS: METHYLPREDNISOLONE SOD SUCC 40 MG/ML VIAL 1ML IV SCH ×2 (15:56→22:00)
[2019-10-06] MEDS: AZITHROMYCIN 500MG/NS 250 ML 250 ML IV SCH (15:56)
[2019-10-06] MEDS ORDERED: OSELTAMIVIR PHOSPHATE 75 MG CAP PO SCH (17:00)
[2019-10-06] MEDS: METOPROLOL TARTRATE 25 MG TAB PO SCH (18:12)
--- NOTE | 2019-10-06 19:00 | NUR ---
Report received from Heriberto Vasquez RN.
[2019-10-06] MEDS: CEFTRIAXONE SOD 1 GM/NS 50 ML 50 ML IV SCH (21:19)
[2019-10-06] MEDS: MIRTAZAPINE 15 MG TAB PO SCH (21:19)
[2019-10-06] MEDS: SIMVASTATIN 20 MG TAB PO SCH (21:20)
[2019-10-07] VITALS (8 sets, daily range): BP systolic 97–138; BP diastolic 51–82
[2019-10-07] MEDS: SODIUM CHLORIDE 0.9% 1000ML 1,000 ML IV SCH ×2 (03:32→20:06)
[2019-10-07 05:32] LABS: BASOPHILS % 0.2 % (0.0-1.0); HEMATOCRIT 38.1 % (34.2-44.1); LYMPHOCYTES # (AUTO) 0.8 (1.0-3.2); LYMPHOCYTES % 12.8 % (18.0-39.1); MEAN CORPUSCULAR HGB CONC 34.1 g/dL (31-35); MEAN CORPUSCULAR VOLUME 90.7 fL (81-99); MONOCYTES # (AUTO) 0.3 (0.2-0.8); MONOCYTES % 4.3 % (4.4-11.3); NEUTROPHILS # (AUTO) 5.1 (2.1-6.9); NEUTROPHILS % 82.4 % (38.7-80.0); PLATELET COUNT 264 x10e3/uL (140-360); RED CELL DISTRIBUTION WIDTH 13.5 % (11.7-14.4)
[2019-10-07 05:45] LABS: ALANINE AMINOTRANSFERASE 10 IU/L (0-55); ALBUMIN 3.7 g/dL (3.5-5.0); ALBUMIN/GLOBULIN RATIO 1.5 (0.8-2.0); ALKALINE PHOSPHATASE 67 IU/L (40-150); ANION GAP 11.7 mmol/L (8-16); BLOOD UREA NITROGEN 14 mg/dL (7-26); BUN/CREATININE RATIO 23 (6-25); CALCIUM 8.8 mg/dL (8.4-10.2); CARBON DIOXIDE 31 mmol/L (22-29); CHLORIDE 101 mmol/L (98-107); CREATININE, SERUM 0.61 mg/dL (0.57-1.11); EST GLOMERULAR FILTRATION RATE > 60 ML/MIN (60-); GLUCOSE 168 mg/dL (74-118); SODIUM 141 mmol/L (136-145)
[2019-10-07 05:52] LABS: POTASSIUM 2.7 mmol/L (3.5-5.1)
--- NOTE | 2019-10-07 05:55 | NUR ---
Pts potassium this morning is 2.7. paged at this time. Currently awaiting his return call.
[2019-10-07] MEDS: METHYLPREDNISOLONE SOD SUCC 40 MG/ML VIAL 1ML IV SCH ×3 (06:09→21:18)
[2019-10-07] MEDS: HYDROCODONE/APAP 10MG-325MG TAB PO SCH ×3 (06:09→20:07)
[2019-10-07] MEDS: FROVATRIPTAN SUCCINATE 2.5 MG PO SCH (09:00)
[2019-10-07] MEDS: AMLODIPINE BESYLATE 5 MG TAB PO SCH (09:00)
[2019-10-07] MEDS: METOPROLOL TARTRATE 25 MG TAB PO SCH ×2 (09:19→17:00)
[2019-10-07] MEDS: SUCRALFATE 1 GM TAB PO SCH ×4 (09:19→21:18)
[2019-10-07] MEDS: METOCLOPRAMIDE HCL 10 MG TAB PO SCH ×3 (09:19→17:15)
[2019-10-07] MEDS: SERTRALINE HCL 50 MG TAB PO SCH (09:20)
[2019-10-07] MEDS: PRIMIDONE 50 MG TAB PO SCH (09:20)
[2019-10-07] MEDS: BUPROPION HCL SR 150 MG TAB PO SCH (09:20)
[2019-10-07] MEDS: PANTOPRAZOLE SOD 40 MG TABEC PO SCH (09:20)
[2019-10-07] MEDS: METHOCARBAMOL 500 MG TAB PO SCH ×2 (09:20→21:18)
[2019-10-07] MEDS: OSELTAMIVIR PHOSPHATE 75 MG CAP PO SCH ×2 (09:20→21:18)
[2019-10-07] MEDS ORDERED: POTASSIUM CHLORIDE 20 MEQ TAB CR PO NR ×2 (10:50→11:00)
[2019-10-07 14:45] LABS: CREATINE KINASE MB 4.6 ng/mL (0-5.0)
[2019-10-07] MEDS: AZITHROMYCIN 500MG/NS 250 ML 250 ML IV SCH (17:03)
[2019-10-07] MEDS: CEFTRIAXONE SOD 1 GM/NS 50 ML 50 ML IV SCH (20:06)
[2019-10-07] MEDS ORDERED: SODIUM CHLORIDE 0.9% 50ML 100 ML ONE (20:46)
[2019-10-07] MEDS: SIMVASTATIN 20 MG TAB PO SCH (21:18)
[2019-10-07] MEDS: MIRTAZAPINE 15 MG TAB PO SCH (21:18)
--- NOTE | 2019-10-07 21:33 | NUR ---
Patient arrived to the unit as a transfer from ICU. Pt alert and oriented x3. Ambulatory with use of walker and standby assist prn. On IVF (NS at 75ml/hr). On 3L NC. Pt has frequent abdominal pain and is being medicated accordingly. Call hart within reach. Will monitor closely.
[2019-10-08] MEDS: HYDROCODONE/APAP 5MG-325MG TAB PO PRN ×3 (00:05→17:04)
[2019-10-08 04:00] VITALS: BP 136/79
[2019-10-08] MEDS: HYDROCODONE/APAP 10MG-325MG TAB PO SCH ×3 (04:20→21:00)
[2019-10-08] MEDS: SUCRALFATE 1 GM TAB PO SCH ×4 (05:45→21:00)
[2019-10-08] MEDS: METHYLPREDNISOLONE SOD SUCC 40 MG/ML VIAL 1ML IV SCH (05:45)
[2019-10-08 07:52] LABS: BASOPHILS % 0.1 % (0.0-1.0); HEMATOCRIT 40.6 % (34.2-44.1); HEMOGLOBIN 13.9 g/dL (12.0-16.0); LYMPHOCYTES # (AUTO) 1.7 (1.0-3.2); LYMPHOCYTES % 11.3 % (18.0-39.1); MEAN CORPUSCULAR HEMOGLOBIN 31.6 pg (28-32); MEAN CORPUSCULAR HGB CONC 34.2 g/dL (31-35); MEAN CORPUSCULAR VOLUME 92.3 fL (81-99); MONOCYTES # (AUTO) 0.7 (0.2-0.8); MONOCYTES % 4.5 % (4.4-11.3); NEUTROPHILS # (AUTO) 12.4 (2.1-6.9); NEUTROPHILS % 83.6 % (38.7-80.0); PLATELET COUNT 259 x10e3/uL (140-360); RED CELL DISTRIBUTION WIDTH 13.8 % (11.7-14.4)
[2019-10-08 08:06] VITALS: BP 144/76
[2019-10-08 08:33] LABS: ALANINE AMINOTRANSFERASE 9 IU/L (0-55); ALBUMIN 3.9 g/dL (3.5-5.0); ALBUMIN/GLOBULIN RATIO 1.9 (0.8-2.0); ALKALINE PHOSPHATASE 62 IU/L (40-150); ANION GAP 10.5 mmol/L (8-16); BLOOD UREA NITROGEN 8 mg/dL (7-26); BUN/CREATININE RATIO 14 (6-25); CALCIUM 8.8 mg/dL (8.4-10.2); CARBON DIOXIDE 33 mmol/L (22-29); CHLORIDE 101 mmol/L (98-107); CREATININE, SERUM 0.56 mg/dL (0.57-1.11); EST GLOMERULAR FILTRATION RATE > 60 ML/MIN (60-); GLUCOSE 118 mg/dL (74-118); POTASSIUM 3.5 mmol/L (3.5-5.1); SODIUM 141 mmol/L (136-145)
[2019-10-08] MEDS: METOCLOPRAMIDE HCL 10 MG TAB PO SCH ×3 (08:57→17:04)
[2019-10-08] MEDS: AMLODIPINE BESYLATE 5 MG TAB PO SCH (08:58)
[2019-10-08] MEDS: METOPROLOL TARTRATE 25 MG TAB PO SCH ×2 (08:58→17:04)
[2019-10-08] MEDS: PRIMIDONE 50 MG TAB PO SCH (08:58)
[2019-10-08] MEDS: PANTOPRAZOLE SOD 40 MG TABEC PO SCH (08:58)
[2019-10-08] MEDS: OSELTAMIVIR PHOSPHATE 75 MG CAP PO SCH ×2 (08:59→21:00)
[2019-10-08] MEDS: SERTRALINE HCL 50 MG TAB PO SCH (08:59)
[2019-10-08] MEDS: BUPROPION HCL SR 150 MG TAB PO SCH (08:59)
[2019-10-08] MEDS: FROVATRIPTAN SUCCINATE 2.5 MG PO SCH (09:00)
[2019-10-08] MEDS: SODIUM CHLORIDE 0.9% 1000ML 1,000 ML IV SCH ×2 (09:09→17:04)
[2019-10-08] MEDS: METHOCARBAMOL 500 MG TAB PO SCH ×2 (09:14→21:00)
[2019-10-08 11:00] LABS: LYMPHOCYTES % (MANUAL) 5 % (19-48); MONOCYTES % (MANUAL) 5 % (3.4-9.0); NEUTROPHILS % (MANUAL) 90 % (40-74); PLATELET ESTIMATE ADEQUATE; PLATELET MORPHOLOGY COMMENT NORMAL; RBC MORPHOLOGY COMMENT NORMAL
[2019-10-08 11:18] VITALS: BP 121/63
[2019-10-08] MEDS: ALBUTEROL SULFATE HFA 8GM INHALATION AEROSOL INH PRN ×2 (11:45→19:05)
[2019-10-08] MEDS: AZITHROMYCIN 500MG/NS 250 ML 250 ML IV SCH (11:53)
[2019-10-08 15:51] VITALS: BP 115/70
[2019-10-08 20:00] VITALS: BP 144/79
[2019-10-08 21:00] VITALS: BP 144/79
[2019-10-08] MEDS: MIRTAZAPINE 15 MG TAB PO SCH (21:00)
[2019-10-08] MEDS: CEFTRIAXONE SOD 1 GM/NS 50 ML 50 ML IV SCH (21:00)
[2019-10-08] MEDS: SIMVASTATIN 20 MG TAB PO SCH (21:00)
--- NOTE | 2019-10-08 21:00 | NUR ---
PATIENT RESTING IN BED IN STABLE CONDITION, NO SIGNS OF DISTRESS NOTED. NASAL CANNULA INTACT AND RUNNING AT 2 LITERS AND PATIENT VOICES PAIN IN ABDOMEN AT A LEVEL OF 10 AND WAS MEDICATED ORDERED. IV FLUIDS ARE RUNNING AT ORDERED RATE. BED IS IN LOWEST POSITION, BOTH SIDE RAILS ARE UP, CALL LIGHT IS WITHIN EASY REACH, WILL CONTINUE TO MONITOR.
[2019-10-09] VITALS (8 sets, daily range): BP systolic 101–126; BP diastolic 60–78
[2019-10-09] MEDS: SODIUM CHLORIDE 0.9% 1000ML 1,000 ML IV SCH ×2 (00:56→22:37)
[2019-10-09] MEDS: HYDROCODONE/APAP 10MG-325MG TAB PO SCH ×3 (05:13→20:50)
[2019-10-09 06:11] LABS: BASOPHILS % 0.2 % (0.0-1.0); EOSINOPHILS # (AUTO) 0.1 (0.0-0.4); EOSINOPHILS % 0.7 % (0.0-6.0); HEMATOCRIT 42.7 % (34.2-44.1); LYMPHOCYTES # (AUTO) 6.2 (1.0-3.2); LYMPHOCYTES % 50.5 % (18.0-39.1); MEAN CORPUSCULAR HEMOGLOBIN 30.8 pg (28-32); MEAN CORPUSCULAR HGB CONC 32.8 g/dL (31-35); MEAN CORPUSCULAR VOLUME 93.8 fL (81-99); MONOCYTES % 8.5 % (4.4-11.3); NEUTROPHILS # (AUTO) 4.9 (2.1-6.9); NEUTROPHILS % 39.9 % (38.7-80.0); PLATELET COUNT 233 x10e3/uL (140-360); RED BLOOD COUNT 4.55 x10e6/uL (3.6-5.1); RED CELL DISTRIBUTION WIDTH 14.2 % (11.7-14.4)
[2019-10-09 06:31] LABS: ALANINE AMINOTRANSFERASE 14 IU/L (0-55); ALBUMIN 3.7 g/dL (3.5-5.0); ALBUMIN/GLOBULIN RATIO 1.5 (0.8-2.0); ALKALINE PHOSPHATASE 52 IU/L (40-150); ANION GAP 12.8 mmol/L (8-16); BLOOD UREA NITROGEN 8 mg/dL (7-26); BUN/CREATININE RATIO 14 (6-25); CALCIUM 8.4 mg/dL (8.4-10.2); CARBON DIOXIDE 32 mmol/L (22-29); CHLORIDE 101 mmol/L (98-107); CREATININE, SERUM 0.59 mg/dL (0.57-1.11); EST GLOMERULAR FILTRATION RATE > 60 ML/MIN (60-); GLUCOSE 88 mg/dL (74-118); SODIUM 143 mmol/L (136-145)
[2019-10-09 06:39] LABS: POTASSIUM 2.8 mmol/L (3.5-5.1)
--- NOTE | 2019-10-09 07:35 | NUR ---
PAGED DR. Harley SHIRLEY REGARDING THE PATIENT'S CRITICAL LAB, AWAITING CALL BACK.
[2019-10-09] MEDS: SUCRALFATE 1 GM TAB PO SCH ×4 (08:50→20:50)
[2019-10-09] MEDS: METOCLOPRAMIDE HCL 10 MG TAB PO SCH ×3 (08:50→17:17)
[2019-10-09] MEDS: OSELTAMIVIR PHOSPHATE 75 MG CAP PO SCH ×2 (08:51→20:50)
[2019-10-09] MEDS: METOPROLOL TARTRATE 25 MG TAB PO SCH ×2 (08:51→17:50)
[2019-10-09] MEDS: METHOCARBAMOL 500 MG TAB PO SCH ×2 (08:51→20:50)
[2019-10-09] MEDS: SERTRALINE HCL 50 MG TAB PO SCH (08:51)
[2019-10-09] MEDS: AMLODIPINE BESYLATE 5 MG TAB PO SCH (08:51)
[2019-10-09] MEDS: PREDNISONE 20 MG TAB PO SCH (08:51)
[2019-10-09] MEDS: BUPROPION HCL SR 150 MG TAB PO SCH (08:51)
[2019-10-09] MEDS: PANTOPRAZOLE SOD 40 MG TABEC PO SCH (08:51)
[2019-10-09] MEDS: PRIMIDONE 50 MG TAB PO SCH (08:51)
[2019-10-09] MEDS: HYDROCODONE/APAP 5MG-325MG TAB PO PRN (08:52)
[2019-10-09] MEDS: FROVATRIPTAN SUCCINATE 2.5 MG PO SCH (09:00)
--- NOTE | 2019-10-09 10:02 | NUR ---
Received bedside shift report. Patient in stable condition,no s/s of distress. Bed alarm in place and working. Telemetry in place. bed in lowest position and locked. Call light within reach.
--- NOTE | 2019-10-09 10:32 | NUR ---
Paged/called the office of Dr. Antonia Downing about the patient lab results of potassium 2.8. Awaiting a call back.
[2019-10-09] MEDS ORDERED: POTASSIUM CHLORIDE 20 MEQ TAB CR PO NR (11:01)
[2019-10-09] MEDS ORDERED: POTASSIUM CHLORIDE 20MEQ/100ML 200 ML IV ONE (11:15)
[2019-10-09] MEDS ORDERED: MAGNESIUM SULF 1GRAM/DEXTROSE 100 ML IV NR (11:15)
[2019-10-09] MEDS: ALBUTEROL SULFATE HFA 8GM INHALATION AEROSOL INH PRN (11:30)
[2019-10-09] MEDS: AZITHROMYCIN 500MG/NS 250 ML 250 ML IV SCH (12:25)
[2019-10-09] MEDS: NICOTINE 14 MG/EA PATCH TOP SCH (16:32)
--- NOTE | 2019-10-09 19:19 | NUR ---
PATIENT IS IN STABLE CONDITION WITH NO S/S OF RESPIRATORY DISTRESS. NO PAIN VOICED. O2 AND TELEMETRY APPLIED. CALL LIGHT IS WITHIN REACH, PATIENT INSTRUCTED TO CALL FOR ASSISTANCE NEEDED. BEDSIDE SHIFT REPORT GIVEN TO ONCOMING NURSE.
[2019-10-09] MEDS: MIRTAZAPINE 15 MG TAB PO SCH (20:50)
[2019-10-09] MEDS: SIMVASTATIN 20 MG TAB PO SCH (20:50)
--- NOTE | 2019-10-09 20:50 | NUR ---
PATIENT RESTING IN BED IN STABLE CONDITION, NO SIGNS OF DISTRESS NOTED. NASAL CANNULA INTACT AND RUNNING AT 2 LITERS AND PATIENT VOICES PAIN IN ABDOMEN AT A LEVEL OF 10 AND WAS MEDICATED ORDERED. IV FLUIDS ARE RUNNING AT ORDERED RATE, AND PATIENT STARTED ON SECOND BAG OF POTASSIUM IV. BED IS IN LOWEST POSITION, BOTH SIDE RAILS ARE UP, CALL LIGHT IS WITHIN EASY REACH, WILL CONTINUE TO MONITOR.
[2019-10-09] MEDS: CEFTRIAXONE SOD 1 GM/NS 50 ML 50 ML IV SCH (22:53)
[2019-10-10] VITALS: BP 131/82
[2019-10-10] MEDS: HYDROCODONE/APAP 5MG-325MG TAB PO PRN (01:21)
[2019-10-10 04:00] VITALS: BP 140/84
[2019-10-10] MEDS: HYDROCODONE/APAP 10MG-325MG TAB PO SCH ×2 (05:07→12:05)
[2019-10-10] MEDS: SODIUM CHLORIDE 0.9% 1000ML 1,000 ML IV SCH (05:17)
[2019-10-10 06:04] LABS: ANION GAP 11.1 mmol/L (8-16); BLOOD UREA NITROGEN 9 mg/dL (7-26); BUN/CREATININE RATIO 15 (6-25); CALCIUM 8.4 mg/dL (8.4-10.2); CARBON DIOXIDE 32 mmol/L (22-29); CHLORIDE 102 mmol/L (98-107); CREATININE, SERUM 0.59 mg/dL (0.57-1.11); EST GLOMERULAR FILTRATION RATE > 60 ML/MIN (60-); GLUCOSE 101 mg/dL (74-118); POTASSIUM 3.1 mmol/L (3.5-5.1); SODIUM 142 mmol/L (136-145)
--- NOTE | 2019-10-10 07:00 | NUR ---
Received bedside shift report. Patient in stable condition,no s/s of distress. Bed alarm in place and working. Telemetry in place. Bed in lowest position and locked. Call light within reach. All personal items within reach.
--- NOTE | 2019-10-10 07:00 | NUR ---
Received bedside shift report. Patient in stable condition,no s/s of distress. No complaints of pain. CPAP in place and working. Bed in lowest position and locked. Call light within reach. All personal items within reach. Addendum: 10/10/19 at 1250 by Corin Mathews RN wrong documentation.
[2019-10-10 08:00] VITALS: BP 153/85
[2019-10-10] MEDS: OSELTAMIVIR PHOSPHATE 75 MG CAP PO SCH (08:59)
[2019-10-10] MEDS: METHOCARBAMOL 500 MG TAB PO SCH (08:59)
[2019-10-10] MEDS: PREDNISONE 20 MG TAB PO SCH (08:59)
[2019-10-10] MEDS: SUCRALFATE 1 GM TAB PO SCH ×2 (08:59→12:05)
[2019-10-10] MEDS: METOPROLOL TARTRATE 25 MG TAB PO SCH (08:59)
[2019-10-10] MEDS: PRIMIDONE 50 MG TAB PO SCH (08:59)
[2019-10-10] MEDS: AMLODIPINE BESYLATE 5 MG TAB PO SCH (08:59)
[2019-10-10] MEDS: METOCLOPRAMIDE HCL 10 MG TAB PO SCH ×2 (08:59→12:05)
[2019-10-10] MEDS: PANTOPRAZOLE SOD 40 MG TABEC PO SCH (08:59)
[2019-10-10 09:00] VITALS: BP 153/85
[2019-10-10] MEDS: NICOTINE 14 MG/EA PATCH TOP SCH (09:00)
[2019-10-10] MEDS: BUPROPION HCL SR 150 MG TAB PO SCH (09:00)
[2019-10-10] MEDS: FROVATRIPTAN SUCCINATE 2.5 MG PO SCH (09:00)
[2019-10-10] MEDS ORDERED: [UNRECOGNIZED DRUG - OTHER] OP SCH (09:00)
[2019-10-10] MEDS: SERTRALINE HCL 50 MG TAB PO SCH (09:00)
[2019-10-10 12:00] VITALS: BP 104/64
[2019-10-10] MEDS: AZITHROMYCIN 500MG/NS 250 ML 250 ML IV SCH (12:05)
[2019-10-10] MEDS ORDERED: LACTULOSE SYRUP 20 GM/30 ML UDC PO NR (13:30)
[2019-10-10] MEDS ORDERED: BISACODYL 5 MG TAB EC PO NR (13:30)
[2019-10-10] MEDS ORDERED: POTASSIUM CHLORIDE 20 MEQ TAB CR PO NR (13:45)
[2019-10-10 16:00] VITALS: BP 101/68
--- NOTE | 2019-10-10 17:22 | NUR ---
Patient discharged home. Patient off the unit @ 1658 via wheelchair accompanied by PCT to the lobby. Patient in stable condition, no s/s of distress noted. No pain noted. IV access removed with tip intact. All personal belongings taken with patient. Discharge teaching, instructions,and medications given to the patient. Verbalized understanding by patient.
--- NOTE | 2019-10-10 17:55 | Discharge Summary ---
She is a 64-year-old female patient, presented with complaint of shortness of breath and fever. ADMITTING IMPRESSION AND DIAGNOSES: Influenza with bacterial pneumonia, chronic obstructive pulmonary disease with exacerbation, hypokalemia, hypertension, anxiety, depression. HOSPITAL COURSE SUMMARY: The patient was admitted with above diagnosis. In the intensive care unit, the patient was treated with Tamiflu, azithromycin, ceftriaxone, and neb treatment. The patient had ID and Pulmonary consult done. The patient had improved significantly with above treatment. The patient was moved out of the ICU. The patient remains hypokalemic, so the patient was given potassium and magnesium supplement. Now upon stabilization, the patient will be discharged home with oral antibiotic Ceftin and give her the bronchodilators. Combivent, the patient was still having the allergy conjunctivitis. Cromolyn eye drops were given. The patient will be discharged home on oral Ceftin. The patient was advised to stop smoking and follow up with me as well as Pulmonary as an outpatient. MD SHEA Garland/[facility] /[id number]
== END 2019-10-10 16:58 | disposition home or self-care (01) | DRG 871 ==
LOC: ER 04:01 → ERHOLD 04:52 → ICU 06:38 → MED/SURG3 10-07 21:34
PROVIDERS: ADMIT Internal Medicine; ATTEND Internal Medicine
DX: A41.89 Other specified sepsis (principal); J10.08 Influenza due to other identified influenza virus with other specified pneumonia; J15.8 Pneumonia due to other specified bacteria; J44.1 Chronic obstructive pulmonary disease with (acute) exacerbation; Z68.1 Body mass index [BMI] 19.9 or less, adult; I10 Essential (primary) hypertension; F10.20 Alcohol dependence, uncomplicated; E87.6 Hypokalemia; F41.9 Anxiety disorder, unspecified; F32.9 Major depressive disorder, single episode, unspecified; H10.10 Acute atopic conjunctivitis, unspecified eye; F17.200 Nicotine dependence, unspecified, uncomplicated; G89.29 Other chronic pain; E87.8 Other disorders of electrolyte and fluid balance, not elsewhere classified; R63.6 Underweight
CPT/HCPCS: 36415; 36600; 71045; 80048; 80053; 80320; 82550; 82553; 82805; 83605; 83690; 83880; 84484; 85025; 87040; 87400; 93005; 93306; 94640; 94660; 94664; 96374; 99285; J0456; J0696; J2060; J2920; J2930; J3370; J3475; J3480; J7030; J7512